=== PATIENT | male | born 1975 | race Caucasian/White ===

== ENCOUNTER 2017-08-03 20:40 | Emergency (ER) | payer MEDICARE, OTHER ==
--- NOTE | 2017-08-03 21:49 | EDM.PDOC ---
ED HPI GENERAL MEDICAL PROBLEM - General Chief Complaint: Upper Extremity Injury/Pain Stated Complaint: FALL/PAIN RT SHOULDER Time Seen by Provider: 08/03/17 21:10 Source of Information: Reports: Patient History Limitations: Reports: No Limitations - History of Present Illness INITIAL COMMENTS - FREE TEXT/NARRATIVE: HISTORY AND PHYSICAL: History of present illness: [Patient comes to the emergency room complaining of left shoulder pain. States that on Tuesday, August 01 he slipped on some ice with his left shoulder banging into the trunk of a vehicle. Since then he's had pain to his left shoulder with any movement. He has not had any numbness or tingling in his arm hand or fingers that he is complaining of pain with any movement of his shoulder. He reports prosthetic right shoulder 1-1/2 years and bilateral knee replacements. He is currently on disability for a multitude of chronic medical conditions. He has no other complaints or concerns.] Review of systems: As per history of present illness and below otherwise all systems reviewed and negative. Past medical history: As per history of present illness and as reviewed below otherwise noncontributory. Surgical history: As per history of present illness and as reviewed below otherwise noncontributory. Social history: No reported history of drug or alcohol abuse. Family history: As per history of present illness and as reviewed below otherwise noncontributory. Physical exam: HEENT: Atraumatic, normocephalic. Lungs: Clear to auscultation, breath sounds equal bilaterally. Heart: S1S2, rate and rhythm. No murmur gallop click or rub. Extremities: Atraumatic in appearance. No bruising ecchymosis or swelling is appreciated to anterior posterior shoulder. He is tender with palpation over left shoulder musculature and AC joint area. 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 Skin is warm dry pink and intact. Neurovascular unremarkable. Neuro: Awake, alert, oriented. Motor and sensory unremarkable throughout. Exam nonfocal. Diagnostics: [Left shoulder x-ray] Therapeutics: [Toradol 60 mg IM] Impression: [L shoulder pain] Plan: [Patient is notified that his shoulder x-ray shows no abnormalities. He is given 60 mg of Toradol IM in the ER. Advised to alternate Tylenol with ibuprofen as needed for discomfort. Heat or ice as needed for discomfort. Follow -up with PCP. Patient verbalized understanding of today's discussion.] Definitive disposition and diagnosis as appropriate pending reevaluation and review of above. left shoulder Pain Score (Numeric/FACES): 7 - Related Data Allergies Allergy/AdvReac Type Severity Reaction Status Date / Time No Known Allergies Allergy Verified 08/03/17 20:57 Home Meds: Home Meds . [No Known Home Meds] 08/03/17 [History] Past Medical History HEENT History: Reports: None Cardiovascular History: Reports: None Respiratory History: Reports: None Gastrointestinal History: Reports: None Genitourinary History: Reports: None Musculoskeletal History: Reports: None Neurological History: Reports: None Psychiatric History: Reports: Depression Endocrine/Metabolic History: Reports: None Hematologic History: Reports: None Immunologic History: Reports: None Oncologic (Cancer) History: Reports: None Dermatologic History: Reports: None - Infectious Disease History Infectious Disease History: Reports: None - Past Surgical History Head Surgeries/Procedures: Reports: None Musculoskeletal Surgical History: Reports: Arthroscopic Procedure Social & Family History - Family History Family Medical History: Noncontributory - Tobacco Use Smoking Status *Q: Never Smoker - Caffeine Use Caffeine Use: Reports: None - Recreational Drug Use Recreational Drug Use: No Review of Systems - Review of Systems Review Of Systems: ROS reveals no pertinent complaints other than HPI. ED EXAM, GENERAL - Physical Exam Exam: See Below Course - Vital Signs Last Recorded V/S: Last Vital Signs Temp 97.5 F 08/03/17 20:50 Pulse 90 08/03/17 20:50 Resp 18 08/03/17 20:50 BP 142/89 H 08/03/17 20:50 Pulse Ox 98 08/03/17 20:50 - Orders/Labs/Meds Orders: Active Orders 24 hr Category Date Time Status Shoulder Comp Lt [CR] Stat Exams 08/03/17 21:18 Taken Departure - Departure Time of Disposition: 22:00 Disposition: Home, Self-Care 01 Condition: Good Clinical Impression: Left shoulder pain - Discharge Information Referrals: PCP,None [Primary Care Provider] - Additional Instructions: The following information is given to patients seen in the emergency department who are being discharged to home. This information is to outline your options for follow-up care. We provide all patients seen in our emergency department with a follow-up referral. The need for follow-up, as well as the timing and circumstances, are variable depending upon the specifics of your emergency department visit. If you don't have a primary care physician on staff, we will provide you with a referral. We always advise you to contact your personal physician following an emergency department visit to inform them of the circumstance of the visit and for follow-up with them and/or the need for any referrals to a consulting specialist. The emergency department will also refer you to a specialist when appropriate. This referral assures that you have the opportunity for follow-up care with a specialist. All of these measure are taken in an effort to provide you with optimal care, which includes your follow-up. Under all circumstances we always encourage you to contact your private physician who remains a resource for coordinating your care. When calling for follow-up care, please make the office aware that this follow-up is from your recent emergency room visit. If for any reason you are refused follow-up, please contact the [facility] emergency department at and asked to speak to the emergency department charge nurse. [facility] [address] [place] [id number] Follow-up with your primary care provider at the clinic listed above in 48-72 hours. You may require an MRI. Tylenol alternating with ibuprofen as needed for discomfort. Maximum daily dose of Tylenol (acetaminophen) is 4 thousand milligrams in 24 hours. Maximum daily dose of ibuprofen is 2400 mg within a 24-hour period. Return to ER as needed as discussed. - My Orders Last 24 Hours: My Active Orders 08/03/17 21:18 Shoulder Comp Lt [CR] Stat - Assessment/Plan Last 24 Hours: My Active Orders 08/03/17 21:18 Shoulder Comp Lt [CR] Stat
[2017-08-03] MEDS ORDERED: Ketorolac 60 MG/2 ML SDV IM ONE (21:51)
--- NOTE | 2017-08-04 10:14 | CR ---
EXAM DATE: 08/03/17 PATIENT'S AGE: 41 Patient: MARY EVERETT Facility: [place], [place] Site . Site : [id number] Study: XRay Shoulder Left [id number]/[id number] 9:41:45 PM Ordering Physician: Doctor Diez Final Report: Indication: Trauma and pain Technique: Left shoulder 3 views. Comparison: None Findings: Bones: Alignment is normal. No fractures or bone lesions. Joint spaces: Unremarkable. Soft tissues: Unremarkable. Impression: No sign of acute injury. Dictated by Tarik Velarde MD @ 08/03/2017 9:45:19 PM Dictated by: Tarik Velarde MD @ 08/03/2017 21:45:25 (Electronic Signature) Report Signed by Proxy. [facility]
== END 2017-08-03 22:18 | disposition home or self-care (01) ==
LOC: MW.ED 20:40
DX: M25.512 Pain in left shoulder (principal)
CPT/HCPCS: 73030; 96372; 99283; J1885

== ENCOUNTER 2017-09-06 17:46 | Observation (INO) | payer MEDICARE, OTHER ==
[2017-09-06] MEDS ORDERED: Sodium Chloride 0.9% 2.5 ML Syringe FLUSH PRN (18:01)
[2017-09-06] MEDS ORDERED: Sodium Chloride 0.9% 10 ML Syringe FLUSH PRN (18:01)
--- NOTE | 2017-09-06 18:17 | EDM.PDOC ---
ED HPI GENERAL MEDICAL PROBLEM - General Chief Complaint: Diabetic Complaint Stated Complaint: HBP/SHAKING Time Seen by Provider: 09/06/17 18:00 - History of Present Illness INITIAL COMMENTS - FREE TEXT/NARRATIVE: HISTORY AND PHYSICAL: History of present illness: Patient's 41-year-old white male history of soj-[id number] diabetes who recently stopped medications he did this due to reported side effects that he was made aware of through nonmedical sources. He also noticed his blood pressure elevated and was concern about possible oxygen and a myriad of other nonspecific complaints. He denies chest pain on arrival pulse oximetry is 95 percent. Patient has had a colon resection for diverticular disease patient also is concerned about epigastric abdominal pain he states he has had a history of pancreatitis in the past. Review of systems: As per history of present illness and below otherwise all systems reviewed and negative. Past medical history: As per history of present illness and as reviewed below otherwise noncontributory. Surgical history: As per history of present illness and as reviewed below otherwise noncontributory. Social history: No reported history of drug or alcohol abuse. Family history: As per history of present illness and as reviewed below otherwise noncontributory. Physical exam: HEENT: Atraumatic, normocephalic, pupils reactive, negative for conjunctival pallor or scleral icterus, mucous membranes moist, throat clear, neck supple, nontender, trachea midline. Lungs: Clear to auscultation, breath sounds equal bilaterally, chest nontender. Heart: S1S2, regular, negative for clicks, rubs, or JVD. Abdomen: Soft, nondistended, mild epigastric tenderness to deep palpation. Negative for masses or hepatosplenomegaly. Negative for costovertebral tenderness. Pelvis: Stable nontender. Genitourinary: Deferred. Rectal: Deferred. Extremities: Atraumatic, negative for cords or calf pain. Neurovascular unremarkable. Neuro: Awake, alert, oriented. Cranial nerves II through XII unremarkable. Cerebellum unremarkable. Motor and sensory unremarkable throughout. Exam nonfocal. Diagnostics: CBC CMP troponin PT/INR EKG acute abdominal series with chest x-ray Therapeutics: None Impression: 1 medical screening exam #2 medical noncompliance #3 history of non-insulin diabetes #4 abdominal pain Definitive disposition and diagnosis as appropriate pending reevaluation and review of above. - Related Data Allergies Allergy/AdvReac Type Severity Reaction Status Date / Time No Known Allergies Allergy Verified 09/06/17 18:05 Home Meds: Home Meds . [No Known Home Meds] 08/03/17 [History] Past Medical History HEENT History: Reports: None Cardiovascular History: Reports: None Respiratory History: Reports: None Gastrointestinal History: Reports: None Genitourinary History: Reports: None Musculoskeletal History: Reports: None Neurological History: Reports: None Psychiatric History: Reports: Depression Endocrine/Metabolic History: Reports: None Hematologic History: Reports: None Immunologic History: Reports: None Oncologic (Cancer) History: Reports: None Dermatologic History: Reports: None - Infectious Disease History Infectious Disease History: Reports: None - Past Surgical History Head Surgeries/Procedures: Reports: None Musculoskeletal Surgical History: Reports: Arthroscopic Procedure Social & Family History - Family History Family Medical History: Noncontributory - Tobacco Use Smoking Status *Q: Never Smoker - Caffeine Use Caffeine Use: Reports: None - Recreational Drug Use Recreational Drug Use: No ED ROS GENERAL - Review of Systems Review Of Systems: ROS reveals no pertinent complaints other than HPI. ED EXAM GENERAL NO PERIP PULSE - Physical Exam Exam: See Below (See dictation) Course - Vital Signs Last Recorded V/S: Last Vital Signs Temp 36.3 C 09/06/17 19:09 Pulse 89 09/06/17 19:09 Resp 18 09/06/17 19:09 BP 136/92 H 09/06/17 19:09 Pulse Ox 96 09/06/17 19:09 - Orders/Labs/Meds Orders: Active Orders 24 hr Category Date Time Status Cardiac Monitoring [RC] . DIRECTED Care 09/06/17 18:00 Active EKG Documentation Completion [RC] STAT Care 09/06/17 18:00 Active Pulse Oximetry [RC] ASDIRECTED Care 09/06/17 18:01 Active Abdomen Series w Chest 1V [CR] Stat Exams 09/06/17 18:01 Taken LIPID PANEL [CHEM] Stat Lab 09/06/17 19:34 Ordered Sodium Chloride 0.9% [Normal Saline] 1,000 ml Med 09/06/17 19:35 Active IV .Bolus Sodium Chloride 0.9% [Saline Flush] Med 09/06/17 18:01 Active 10 ml FLUSH ASDIRECTED PRN Sodium Chloride 0.9% [Saline Flush] Med 09/06/17 18:01 Active 2.5 ml FLUSH ASDIRECTED PRN Saline Lock Insert [OM.PC] Stat Oth 09/06/17 18:00 Ordered Medication Orders Sodium Chloride (Normal Saline) 1,000 mls @ 999 mls/hr IV .Bolus ONE Stop: 09/06/17 20:35 Sodium Chloride (Saline Flush) 10 ml FLUSH ASDIRECTED PRN PRN Reason: Keep Vein Open Sodium Chloride (Saline Flush) 2.5 ml FLUSH ASDIRECTED PRN PRN Reason: Keep Vein Open Labs: Laboratory Tests 09/06/17 09/06/17 09/06/17 Range/Units 18:10 18:10 18:10 WBC 7.26 (4.0-11.0) K/uL RBC 5.20 (4.50-5.90) M/uL Hgb 16.6 (13.0-17.0) g/dL Hct 45.6 (38.0-50.0) % MCV 87.7 (80.0-98.0) fL MCH 31.9 (27.0-32.0) pg MCHC 36.4 (31.0-37.0) g/dL RDW Std Deviation 41.0 (28.0-62.0) fl RDW Coeff of Torsten 13 (11.0-15.0) % Plt Count 193 (150-400) K/uL MPV 10.40 (7.40-12.00) fL Neut % (Auto) 49.1 (48.0-80.0) % Lymph % (Auto) 36.8 (16.0-40.0) % [place] % (Auto) 10.7 (0.0-15.0) % Eos % (Auto) 2.3 (0.0-7.0) % Baso % (Auto) 1.1 (0.0-1.5) % Neut # (Auto) 3.6 (1.4-5.7) K/uL Lymph # (Auto) 2.7 H (0.6-2.4) K/uL [place] # (Auto) 0.8 (0.0-0.8) K/uL Eos # (Auto) 0.2 (0.0-0.7) K/uL Baso # (Auto) 0.1 (0.0-0.1) K/uL Nucleated RBC % 0.0 /100WBC Nucleated RBCs # 0 K/uL INR 1.08 Sodium 136 (136-148) mmol/L Potassium 3.8 (3.5-5.1) mmol/L Chloride 100 (98-107) mmol/L Carbon Dioxide 26.2 (21.0-32.0) mmol/L BUN 12 (7.0-18.0) mg/dL Creatinine 1.1 (0.8-1.3) mg/dL Est Cr Clr Drug Dosing 95.04 mL/min Estimated GFR (MDRD) > 60.0 ml/min Glucose 284 H (74-106) mg/dL Calcium 9.1 (8.5-10.1) mg/dL Total Bilirubin 0.4 (0.2-1.0) mg/dL AST 27 (15-37) IU/L ALT 33 (14-63) IU/L Alkaline Phosphatase 151 H (46-116) U/L Troponin I < 0.050 (0.000-0.056) ng/mL Total Protein 8.2 (6.4-8.2) g/dL Albumin 3.7 (3.4-5.0) g/dL Globulin 4.5 H (2.0-3.5) g/dL Albumin/Globulin Ratio 0.8 L (1.3-2.8) Lipase 1248 H (73-393) U/L Meds: Medications Generic Name Dose Route Start Last Admin Trade Name Freq PRN Reason Stop Dose Admin Sodium Chloride 1,000 mls @ 999 mls/hr 09/06/17 19:35 Normal Saline IV 09/06/17 20:35 .Bolus ONE Sodium Chloride 10 ml 09/06/17 18:01 Saline Flush FLUSH ASDIRECTED PRN Keep Vein Open Sodium Chloride 2.5 ml 09/06/17 18:01 Saline Flush FLUSH ASDIRECTED PRN Keep Vein Open Departure - Departure Time of Disposition: 18:17 Disposition: Refer to Observation Condition: Good Clinical Impression: Pancreatitis, Medical non-compliance, Non-insulin dependent type 2 diabetes mellitus - Discharge Information Referrals: PCP,None [Primary Care Provider] - Forms: ED Department Discharge - My Orders Last 24 Hours: My Active Orders 09/06/17 18:00 Cardiac Monitoring [RC] . DIRECTED EKG Documentation Completion [RC] STAT Saline Lock Insert [OM.PC] Stat 09/06/17 18:01 Pulse Oximetry [RC] ASDIRECTED Abdomen Series w Chest 1V [CR] Stat Sodium Chloride 0.9% [Saline Flush] 10 ml FLUSH ASDIRECTED PRN Sodium Chloride 0.9% [Saline Flush] 2.5 ml FLUSH ASDIRECTED PRN - Assessment/Plan Last 24 Hours: My Active Orders 09/06/17 18:00 Cardiac Monitoring [RC] . DIRECTED EKG Documentation Completion [RC] STAT Saline Lock Insert [OM.PC] Stat 09/06/17 18:01 Pulse Oximetry [RC] ASDIRECTED Abdomen Series w Chest 1V [CR] Stat Sodium Chloride 0.9% [Saline Flush] 10 ml FLUSH ASDIRECTED PRN Sodium Chloride 0.9% [Saline Flush] 2.5 ml FLUSH ASDIRECTED PRN
[2017-09-06 18:47] LABS: CHLORIDE,CL 100 mmol/L (98-107); SODIUM,NA 136 mmol/L (136-148)
[2017-09-06] MEDS ORDERED: Sodium Chloride 0.9% 1,000 ML IV ONE ×3 (19:35→19:39)
--- NOTE | 2017-09-06 20:29 | PCM.HP ---
H&P History of Present Illness - General Admit Problem/Dx: Admission Diagnosis/Problem Admission Diagnosis/Problem Pancreatitis - History of Present Illness Initial Comments - Free Text/Narative: 41 yo male with pmh of type 2 DM who presents to the ED with abdominal pain. Patient reports abdominal pain for past year. His abdominal pain is periumbilical and radiates to the back. The pain has gradually gotten worse and today it was unbearable. He has been unable to eat anything all day. He denies any fever or blood in stool His diabetes is poorly controlled on metformin and he reports blood glucose in the 300s and 400s. He reports a history of elevated triglycerides. He reports he has a history of gallstones. He stated he wanted his gallbladder out at one point but nobody was willing to remove it. He admits to heavy alcohol use in the past. He last binged drink six months ago. His last drink was one month ago. Bilateral Lower Abdominal Pain Score (Numeric/FACES): 8 - Related Data Allergies/Adverse Reactions: Allergies Allergy/AdvReac Type Severity Reaction Status Date / Time No Known Allergies Allergy Verified 09/06/17 18:05 Home Medications: Home Meds Insulin Aspart [NovoLOG] See Protocol SUBCUT TID #3 pen 09/08/17 [Rx] Insulin Glarg,Human.Rec.Analog [Lantus] 20 unit SUBCUT DAILY #3 bottle 09/08/17 [Rx] Rosuvastatin [Crestor] 10 mg PO DAILY #30 tab 09/08/17 [Rx] Past Medical History HEENT History: Reports: None Cardiovascular History: Reports: None Respiratory History: Reports: None Gastrointestinal History: Reports: None Genitourinary History: Reports: None Musculoskeletal History: Reports: None Neurological History: Reports: None Psychiatric History: Reports: Depression Endocrine/Metabolic History: Reports: None Hematologic History: Reports: None Immunologic History: Reports: None Oncologic (Cancer) History: Reports: None Dermatologic History: Reports: None - Infectious Disease History Infectious Disease History: Reports: None - Past Surgical History Head Surgeries/Procedures: Reports: None Musculoskeletal Surgical History: Reports: Arthroscopic Procedure Social & Family History - Family History Family Medical History: Noncontributory - Tobacco Use Smoking Status *Q: Never Smoker - Caffeine Use Caffeine Use: Reports: None - Recreational Drug Use Recreational Drug Use: No H&P Review of Systems - Review of Systems: Review Of Systems: ROS reveals no pertinent complaints other than HPI. Exam - Exam Exam: See Below - Vital Signs Vital Signs: Last Vital Signs Temp 36.3 C 09/06/17 19:09 Pulse 89 09/06/17 19:09 Resp 18 09/06/17 19:09 BP 136/92 H 09/06/17 19:09 Pulse Ox 96 09/06/17 19:09 Weight: 124.1 kg - Exam General: Alert, Oriented Lungs: Clear to Auscultation, Normal Respiratory Effort GI/Abdominal Exam: Normal Bowel Sounds, Soft, No Distention, Tender (to epigastric area) - Patient Data Lab Results Last 24 hrs: Laboratory Results - last 24 hr 09/06/17 09/06/17 09/06/17 Range/Units 18:10 18:10 18:10 WBC 7.26 (4.0-11.0) K/uL RBC 5.20 (4.50-5.90) M/uL Hgb 16.6 (13.0-17.0) g/dL Hct 45.6 (38.0-50.0) % MCV 87.7 (80.0-98.0) fL MCH 31.9 (27.0-32.0) pg MCHC 36.4 (31.0-37.0) g/dL RDW Std Deviation 41.0 (28.0-62.0) fl RDW Coeff of Torsten 13 (11.0-15.0) % Plt Count 193 (150-400) K/uL MPV 10.40 (7.40-12.00) fL Neut % (Auto) 49.1 (48.0-80.0) % Lymph % (Auto) 36.8 (16.0-40.0) % [place] % (Auto) 10.7 (0.0-15.0) % Eos % (Auto) 2.3 (0.0-7.0) % Baso % (Auto) 1.1 (0.0-1.5) % Neut # (Auto) 3.6 (1.4-5.7) K/uL Lymph # (Auto) 2.7 H (0.6-2.4) K/uL [place] # (Auto) 0.8 (0.0-0.8) K/uL Eos # (Auto) 0.2 (0.0-0.7) K/uL Baso # (Auto) 0.1 (0.0-0.1) K/uL Nucleated RBC % 0.0 /100WBC Nucleated RBCs # 0 K/uL INR 1.08 Sodium 136 (136-148) mmol/L Potassium 3.8 (3.5-5.1) mmol/L Chloride 100 (98-107) mmol/L Carbon Dioxide 26.2 (21.0-32.0) mmol/L BUN 12 (7.0-18.0) mg/dL Creatinine 1.1 (0.8-1.3) mg/dL Est Cr Clr Drug Dosing 95.04 mL/min Estimated GFR (MDRD) > 60.0 ml/min Glucose 284 H (74-106) mg/dL Calcium 9.1 (8.5-10.1) mg/dL Total Bilirubin 0.4 (0.2-1.0) mg/dL AST 27 (15-37) IU/L ALT 33 (14-63) IU/L Alkaline Phosphatase 151 H (46-116) U/L Troponin I < 0.050 (0.000-0.056) ng/mL Total Protein 8.2 (6.4-8.2) g/dL Albumin 3.7 (3.4-5.0) g/dL Globulin 4.5 H (2.0-3.5) g/dL Albumin/Globulin Ratio 0.8 L (1.3-2.8) Triglycerides (0-200) mg/dL Cholesterol (50-200) mg/dL VLDL Cholesterol (5-55) mg/dL HDL Cholesterol (40-60) mg/dL Cholesterol/HDL Ratio (3.3-6.0) Lipase 1248 H (73-393) U/L 09/06/17 Range/Units 18:10 WBC (4.0-11.0) K/uL RBC (4.50-5.90) M/uL Hgb (13.0-17.0) g/dL Hct (38.0-50.0) % MCV (80.0-98.0) fL MCH (27.0-32.0) pg MCHC (31.0-37.0) g/dL RDW Std Deviation (28.0-62.0) fl RDW Coeff of Torsten (11.0-15.0) % Plt Count (150-400) K/uL MPV (7.40-12.00) fL Neut % (Auto) (48.0-80.0) % Lymph % (Auto) (16.0-40.0) % [place] % (Auto) (0.0-15.0) % Eos % (Auto) (0.0-7.0) % Baso % (Auto) (0.0-1.5) % Neut # (Auto) (1.4-5.7) K/uL Lymph # (Auto) (0.6-2.4) K/uL [place] # (Auto) (0.0-0.8) K/uL Eos # (Auto) (0.0-0.7) K/uL Baso # (Auto) (0.0-0.1) K/uL Nucleated RBC % /100WBC Nucleated RBCs # K/uL INR Sodium (136-148) mmol/L Potassium (3.5-5.1) mmol/L Chloride (98-107) mmol/L Carbon Dioxide (21.0-32.0) mmol/L BUN (7.0-18.0) mg/dL Creatinine (0.8-1.3) mg/dL Est Cr Clr Drug Dosing mL/min Estimated GFR (MDRD) ml/min Glucose (74-106) mg/dL Calcium (8.5-10.1) mg/dL Total Bilirubin (0.2-1.0) mg/dL AST (15-37) IU/L ALT (14-63) IU/L Alkaline Phosphatase (46-116) U/L Troponin I (0.000-0.056) ng/mL Total Protein (6.4-8.2) g/dL Albumin (3.4-5.0) g/dL Globulin (2.0-3.5) g/dL Albumin/Globulin Ratio (1.3-2.8) Triglycerides 520 H (0-200) mg/dL Cholesterol 233 H (50-200) mg/dL VLDL Cholesterol 104 H (5-55) mg/dL HDL Cholesterol 33 L (40-60) mg/dL Cholesterol/HDL Ratio 7.1 H (3.3-6.0) Lipase (73-393) U/L Result Diagrams: 09/08/17 06:15 09/08/17 06:15 Problem List Initiated/Reviewed/Updated: Yes Orders Last 24hrs: Active Orders 24 hr Category Date Time Status Patient Status [ADT] Stat ADT 09/06/17 19:37 Active Accu Check [Blood Glucose Check, Bedside] [RC] Q6HR Care 09/06/17 20:18 Ordered Cardiac Monitoring [RC] . DIRECTED Care 09/06/17 18:00 Active EKG Documentation Completion [RC] STAT Care 09/06/17 18:00 Active Oxygen Therapy [RC] PRN Care 09/06/17 20:16 Ordered Pulse Oximetry [RC] ASDIRECTED Care 09/06/17 18:01 Active Up ad Mildred [RC] ASDIRECTED Care 09/06/17 20:16 Ordered VTE/DVT Education [RC] PER UNIT ROUTINE Care 09/06/17 20:16 Ordered Vital Signs [RC] Q4H Care 09/06/17 20:16 Ordered Nothing per Oral Now Diet [DIET] Diet 09/06/17 Breakfast Ordered Abdomen Comp [US] Routine Exams 09/06/17 20:23 Ordered Abdomen Series w Chest 1V [CR] Stat Exams 09/06/17 18:01 Taken CBC WITH AUTO DIFF [HEME] AM Lab 09/07/17 05:11 Ordered COMPREHENSIVE METABOLIC PN,CMP [CHEM] AM Lab 09/07/17 05:11 Ordered GLYCOSYLATED HEMOGLOBIN,HGBA1C [CHEM] AM Lab 09/07/17 05:11 Ordered Enoxaparin [Lovenox] Med 09/06/17 20:30 Ordered 40 mg SUBCUT Q24H Insulin Aspart [NovoLOG] Med 09/06/17 20:30 Ordered See Protocol SUBCUT Q6H Morphine Med 09/06/17 20:16 Ordered 2 mg IVPUSH Q2H PRN Pantoprazole [ProTONIX IV] Med 09/06/17 20:30 Ordered 40 mg IVPUSH Q24H Sodium Chloride 0.9% [Normal Saline] 1,000 ml Med 09/06/17 19:35 Active IV .Bolus Sodium Chloride 0.9% [Normal Saline] 1,000 ml Med 09/06/17 19:35 Active IV .Bolus Sodium Chloride 0.9% [Normal Saline] 1,000 ml Med 09/06/17 20:30 Ordered IV ASDIRECTED Sodium Chloride 0.9% [Normal Saline] 1,000 ml Med 09/06/17 19:39 Active IV STAT Sodium Chloride 0.9% [Saline Flush] Med 09/06/17 18:01 Active 10 ml FLUSH ASDIRECTED PRN Sodium Chloride 0.9% [Saline Flush] Med 09/06/17 18:01 Active 2.5 ml FLUSH ASDIRECTED PRN Saline Lock Insert [OM.PC] Stat Ot 09/06/17 18:00 Ordered Sequential Compression Device [OM.PC] Per Unit Routine Oth 09/06/17 20:16 Ordered Resuscitation Status Routine Resus Stat 09/06/17 20:16 Ordered Medication Orders Enoxaparin Sodium (Lovenox) 40 mg SUBCUT Q24H BAYRON Sodium Chloride (Normal Saline) 1,000 mls @ 999 mls/hr IV .Bolus ONE Stop: 09/06/17 20:35 Last Admin: 09/06/17 19:45 Dose: 999 mls/hr Sodium Chloride (Normal Saline) 1,000 mls @ 999 mls/hr IV .Bolus ONE Stop: 09/06/17 20:35 Sodium Chloride (Normal Saline) 1,000 mls @ 999 mls/hr IV STAT ONE Stop: 09/06/17 20:39 Sodium Chloride (Normal Saline) 1,000 mls @ 200 mls/hr IV ASDIRECTED BAYRON Insulin Aspart (Novolog) 0 unit SUBCUT Q6H BAYRON; Protocol Morphine Sulfate (Morphine) 2 mg IVPUSH Q2H PRN PRN Reason: Pain (severe 7-10) Stop: 09/07/17 20:17 Pantoprazole Sodium (Protonix Iv) 40 mg IVPUSH Q24H [place] Sodium Chloride (Saline Flush) 10 ml FLUSH ASDIRECTED PRN PRN Reason: Keep Vein Open Sodium Chloride (Saline Flush) 2.5 ml FLUSH ASDIRECTED PRN PRN Reason: Keep Vein Open Assessment/Plan Comment:: 41 yo male admitted with pancreatitis. Etiology is likely mutlifactorial. We will check abdominal ultrasound. We will treat with IV fluids, bowel rest and pain medications. Will place on sliding scale insulin.
[2017-09-06] MEDS: Insulin Aspart 100 Units/ML 3 ML Pen SUBCUT SCH (21:38)
[2017-09-06] MEDS: Pantoprazole 40 MG Vial IVPUSH SCH (21:40)
[2017-09-06] MEDS: Enoxaparin 40 MG/0.4 ML Syringe SUBCUT SCH (21:43)
[2017-09-06] MEDS: Morphine 4 MG/ML Syringe IVPUSH PRN (22:12)
[2017-09-06] MEDS: Sodium Chloride 0.9% 1,000 ML IV SCH (23:45)
[2017-09-07] MEDS: Morphine 4 MG/ML Syringe IVPUSH PRN ×6 (00:17→23:44)
[2017-09-07] MEDS: Insulin Aspart 100 Units/ML 3 ML Pen SUBCUT SCH ×4 (03:30→18:20)
[2017-09-07] MEDS: Sodium Chloride 0.9% 1,000 ML IV SCH ×4 (04:25→19:48)
[2017-09-07 06:39] LABS: CHLORIDE,CL 105 mmol/L (98-107); SODIUM,NA 139 mmol/L (136-148)
[2017-09-07] MEDS ORDERED: Ondansetron 4 MG/2 ML SDV IVPUSH ONE (09:05)
--- NOTE | 2017-09-07 10:46 | CR ---
EXAM DATE: 09/06/17 PATIENT'S AGE: 41 Patient: MARY EVERETT Facility: [place], [place] Site . Site : 1975 Study: XRay Chest/Abd/Pelvis acute series [id number]/10/2018 7:02:06 PM Ordering Physician: Hali Shukla Final Report: INDICATION: Abdominal pain, nausea, vomiting, diarrhea, dizziness TECHNIQUE: Chest 1 view. COMPARISON: 09/22/2009 FINDINGS: Cardiovascular and mediastinum: Heart size and vasculature are normal in caliber and appearance. Mediastinum is within normal limits. Lungs and pleural space: Lungs are clear. No sign of infiltrate or mass. No sign of pleural effusion. No pneumothorax. Bones and soft tissues: No significant findings. Abdomen: There is a nonobstructive bowel gas pattern. Colonic fecal retention. No evidence for bowel obstruction. No suspicious calcifications. Surgical clips project over the left side of the sacrum. IMPRESSION: Unremarkable chest. Colonic fecal retention. Dictated by Sheng Brooks MD @ 09/06/2017 7:19:05 PM Dictated by: Sheng Brooks MD @ 09/06/2017 19:19:13 (Electronic Signature) Report Signed by Proxy. [facility]
--- NOTE | 2017-09-07 11:32 | US ---
EXAMINATION: Abdominal ultrasound HISTORY: Pain COMPARISON: None TECHNIQUE: Grayscale and color Doppler imaging obtained. FINDINGS: The visualized pancreas is normal. The IVC and aorta appear normal. The liver is mildly to moderately increased in generalized echotexture without a focal hepatic mass. Gallbladder wall thickn ess is normal. No pericholecystic fluid or shadowing gallstones. The common bile duct measures 4 mm. Right kidney measures at least 12.9 cm and the left kidney measures at least 11 cm [id number] witho ut evidence of hydronephrosis. Peripelvic cysts noted within the left kidney. The spleen is normal. N o abdominal ascites. IMPRESSION: 1. Fatty infiltration of the liver. 2. Otherwise grossly unremarkable abdominal ultrasound.
--- NOTE | 2017-09-07 11:49 | PCM.PN ---
- General Info Date of Service: 09/07/17 Admission Dx/Problem (Free Text): Admission Diagnosis/Problem Admission Diagnosis/Problem Pancreatitis Subjective Update: Patient continues to complain of diffuse abdominal pain. He doesn't have much of an appetite and endorses nausea but no vomiting. He denies any other acute concerns at this time. Functional Status: Reports: Pain Controlled, Ambulating, Urinating - Review of Systems General: Reports: No Symptoms HEENT: Reports: No Symptoms Pulmonary: Reports: No Symptoms Cardiovascular: Reports: No Symptoms Gastrointestinal: Reports: Abdominal Pain, Nausea. Denies: Vomiting Genitourinary: Reports: No Symptoms Musculoskeletal: Reports: No Symptoms Skin: Reports: No Symptoms Neurological: Reports: No Symptoms Psychiatric: Reports: No Symptoms - Patient Data Vitals - Most Recent: Last Vital Signs Temp 99.1 F 09/07/17 08:00 Pulse 88 09/07/17 08:00 Resp 17 09/07/17 08:00 BP 134/95 H 09/07/17 08:00 Pulse Ox 92 L 09/07/17 08:00 Weight - Most Recent: 268 lb 11.2 oz I&O - Last 24 Hours: Intake & Output 09/06/17 09/07/17 09/07/17 22:59 06:59 14:59 Intake Total 1999 1933 Output Total 700 Balance 1999 1233 Lab Results Last 24 Hours: Laboratory Results - last 24 hr 09/06/17 09/06/17 09/06/17 Range/Units 18:10 18:10 18:10 WBC 7.26 (4.0-11.0) K/uL RBC 5.20 (4.50-5.90) M/uL Hgb 16.6 (13.0-17.0) g/dL Hct 45.6 (38.0-50.0) % MCV 87.7 (80.0-98.0) fL MCH 31.9 (27.0-32.0) pg MCHC 36.4 (31.0-37.0) g/dL RDW Std Deviation 41.0 (28.0-62.0) fl RDW Coeff of Torsten 13 (11.0-15.0) % Plt Count 193 (150-400) K/uL MPV 10.40 (7.40-12.00) fL Neut % (Auto) 49.1 (48.0-80.0) % Lymph % (Auto) 36.8 (16.0-40.0) % [place] % (Auto) 10.7 (0.0-15.0) % Eos % (Auto) 2.3 (0.0-7.0) % Baso % (Auto) 1.1 (0.0-1.5) % Neut # (Auto) 3.6 (1.4-5.7) K/uL Lymph # (Auto) 2.7 H (0.6-2.4) K/uL [place] # (Auto) 0.8 (0.0-0.8) K/uL Eos # (Auto) 0.2 (0.0-0.7) K/uL Baso # (Auto) 0.1 (0.0-0.1) K/uL Nucleated RBC % 0.0 /100WBC Nucleated RBCs # 0 K/uL INR 1.08 Sodium 136 (136-148) mmol/L Potassium 3.8 (3.5-5.1) mmol/L Chloride 100 (98-107) mmol/L Carbon Dioxide 26.2 (21.0-32.0) mmol/L BUN 12 (7.0-18.0) mg/dL Creatinine 1.1 (0.8-1.3) mg/dL Est Cr Clr Drug Dosing 95.04 mL/min Estimated GFR (MDRD) > 60.0 ml/min Glucose 284 H (74-106) mg/dL Hemoglobin A1c (4.5-6.2) % Calcium 9.1 (8.5-10.1) mg/dL Total Bilirubin 0.4 (0.2-1.0) mg/dL AST 27 (15-37) IU/L ALT 33 (14-63) IU/L Alkaline Phosphatase 151 H (46-116) U/L Troponin I < 0.050 (0.000-0.056) ng/mL Total Protein 8.2 (6.4-8.2) g/dL Albumin 3.7 (3.4-5.0) g/dL Globulin 4.5 H (2.0-3.5) g/dL Albumin/Globulin Ratio 0.8 L (1.3-2.8) Triglycerides (0-200) mg/dL Cholesterol (50-200) mg/dL VLDL Cholesterol (5-55) mg/dL HDL Cholesterol (40-60) mg/dL Cholesterol/HDL Ratio (3.3-6.0) Lipase 1248 H (73-393) U/L 09/06/17 09/07/17 09/07/17 Range/Units 18:10 05:10 05:10 WBC 7.71 (4.0-11.0) K/uL RBC 4.63 (4.50-5.90) M/uL Hgb 14.6 (13.0-17.0) g/dL Hct 41.3 (38.0-50.0) % MCV 89.2 (80.0-98.0) fL MCH 31.5 (27.0-32.0) pg MCHC 35.4 (31.0-37.0) g/dL RDW Std Deviation 42.2 (28.0-62.0) fl RDW Coeff of Torsten 13 (11.0-15.0) % Plt Count 175 (150-400) K/uL MPV 10.50 (7.40-12.00) fL Neut % (Auto) 43.9 L (48.0-80.0) % Lymph % (Auto) 40.6 H (16.0-40.0) % [place] % (Auto) 11.5 (0.0-15.0) % Eos % (Auto) 3.1 (0.0-7.0) % Baso % (Auto) 0.9 (0.0-1.5) % Neut # (Auto) 3.4 (1.4-5.7) K/uL Lymph # (Auto) 3.1 H (0.6-2.4) K/uL [place] # (Auto) 0.9 H (0.0-0.8) K/uL Eos # (Auto) 0.2 (0.0-0.7) K/uL Baso # (Auto) 0.1 (0.0-0.1) K/uL Nucleated RBC % 0.0 /100WBC Nucleated RBCs # 0 K/uL INR Sodium (136-148) mmol/L Potassium (3.5-5.1) mmol/L Chloride (98-107) mmol/L Carbon Dioxide (21.0-32.0) mmol/L BUN (7.0-18.0) mg/dL Creatinine (0.8-1.3) mg/dL Est Cr Clr Drug Dosing mL/min Estimated GFR (MDRD) ml/min Glucose (74-106) mg/dL Hemoglobin A1c 9.5 H (4.5-6.2) % Calcium (8.5-10.1) mg/dL Total Bilirubin (0.2-1.0) mg/dL AST (15-37) IU/L ALT (14-63) IU/L Alkaline Phosphatase (46-116) U/L Troponin I (0.000-0.056) ng/mL Total Protein (6.4-8.2) g/dL Albumin (3.4-5.0) g/dL Globulin (2.0-3.5) g/dL Albumin/Globulin Ratio (1.3-2.8) Triglycerides 520 H (0-200) mg/dL Cholesterol 233 H (50-200) mg/dL VLDL Cholesterol 104 H (5-55) mg/dL HDL Cholesterol 33 L (40-60) mg/dL Cholesterol/HDL Ratio 7.1 H (3.3-6.0) Lipase (73-393) U/L 09/07/17 Range/Units 05:10 WBC (4.0-11.0) K/uL RBC (4.50-5.90) M/uL Hgb (13.0-17.0) g/dL Hct (38.0-50.0) % MCV (80.0-98.0) fL MCH (27.0-32.0) pg MCHC (31.0-37.0) g/dL RDW Std Deviation (28.0-62.0) fl RDW Coeff of Torsten (11.0-15.0) % Plt Count (150-400) K/uL MPV (7.40-12.00) fL Neut % (Auto) (48.0-80.0) % Lymph % (Auto) (16.0-40.0) % Casey % (Auto) (0.0-15.0) % Eos % (Auto) (0.0-7.0) % Baso % (Auto) (0.0-1.5) % Neut # (Auto) (1.4-5.7) K/uL Lymph # (Auto) (0.6-2.4) K/uL [place] # (Auto) (0.0-0.8) K/uL Eos # (Auto) (0.0-0.7) K/uL Baso # (Auto) (0.0-0.1) K/uL Nucleated RBC % /100WBC Nucleated RBCs # K/uL INR Sodium 139 (136-148) mmol/L Potassium 3.8 (3.5-5.1) mmol/L Chloride 105 (98-107) mmol/L Carbon Dioxide 24.0 (21.0-32.0) mmol/L BUN 12 (7.0-18.0) mg/dL Creatinine 1.0 (0.8-1.3) mg/dL Est Cr Clr Drug Dosing TNP mL/min Estimated GFR (MDRD) > 60.0 ml/min Glucose 222 H (74-106) mg/dL Hemoglobin A1c (4.5-6.2) % Calcium 7.7 L (8.5-10.1) mg/dL Total Bilirubin 0.3 (0.2-1.0) mg/dL AST 28 (15-37) IU/L ALT 31 (14-63) IU/L Alkaline Phosphatase 122 H (46-116) U/L Troponin I (0.000-0.056) ng/mL Total Protein 6.7 (6.4-8.2) g/dL Albumin 3.0 L (3.4-5.0) g/dL Globulin 3.7 H (2.0-3.5) g/dL Albumin/Globulin Ratio 0.8 L (1.3-2.8) Triglycerides (0-200) mg/dL Cholesterol (50-200) mg/dL VLDL Cholesterol (5-55) mg/dL HDL Cholesterol (40-60) mg/dL Cholesterol/HDL Ratio (3.3-6.0) Lipase (73-393) U/L Med Orders - Current: Current Medications Enoxaparin Sodium (Lovenox) 40 mg SUBCUT Q24H [facility] Last Admin: 09/06/17 21:43 Dose: 40 mg Sodium Chloride (Normal Saline) 1,000 mls @ 200 mls/hr IV ASDIRECTED [facility] Last Admin: 09/07/17 10:00 Dose: 200 mls/hr Insulin Aspart (Novolog) 0 unit SUBCUT Q6H [facility]; Protocol Last Admin: 09/07/17 11:42 Dose: 1 unit Morphine Sulfate (Morphine) 2 mg IVPUSH Q2H PRN PRN Reason: Pain (severe 7-10) Stop: 09/07/17 20:17 Last Admin: 09/07/17 10:14 Dose: 2 mg Pantoprazole Sodium (Protonix Iv) 40 mg IVPUSH Q24H [facility] Last Admin: 09/06/17 21:40 Dose: 40 mg Sodium Chloride (Saline Flush) 10 ml FLUSH ASDIRECTED PRN PRN Reason: Keep Vein Open Sodium Chloride (Saline Flush) 2.5 ml FLUSH ASDIRECTED PRN PRN Reason: Keep Vein Open Discontinued Medications Sodium Chloride (Normal Saline) 1,000 mls @ 999 mls/hr IV .Bolus ONE Stop: 09/06/17 20:35 Last Infusion: 09/06/17 21:31 Dose: Infused Sodium Chloride (Normal Saline) 1,000 mls @ 999 mls/hr IV .Bolus ONE Stop: 09/06/17 20:35 Last Infusion: 09/06/17 23:44 Dose: Infused Sodium Chloride (Normal Saline) 1,000 mls @ 999 mls/hr IV STAT ONE Stop: 09/06/17 20:39 Last Infusion: 09/06/17 22:44 Dose: Infused Insulin Aspart (Novolog) 0 unit SUBCUT Q6H [facility]; Protocol Last Admin: 09/07/17 03:30 Dose: 1 unit Ondansetron HCl (Zofran) 4 mg IVPUSH ONETIME ONE Stop: 09/07/17 09:06 Last Admin: 09/07/17 09:59 Dose: 4 mg - Exam Quality Assessment: DVT Prophylaxis General: Alert, Oriented, Cooperative, No Acute Distress Lungs: Clear to Auscultation, Normal Respiratory Effort Cardiovascular: Regular Rate, Regular Rhythm GI/Abdominal Exam: Normal Bowel Sounds, Soft, No Organomegaly, No Distention, No Abnormal Bruit, No Mass, Pelvis Stable, Tender (Diffuse) Extremities: Normal Inspection, Normal Range of Motion, Non-Tender, No Pedal Edema, Normal Capillary Refill Peripheral Pulses: 2+: Radial (L), Radial (R), Posterior Tibial (L), Posterior Tibial (R) Skin: Warm, Dry, Intact Neurological: No New Focal Deficit Psy/Mental Status: Alert, Normal Affect, Normal Mood - Problem List & Annotations (1) Dyslipidemia SNOMED Code(s): 087399113 Code(s): E78.5 - HYPERLIPIDEMIA, UNSPECIFIED Status: Acute Current Visit : Yes (2) Non-insulin dependent type 2 diabetes mellitus SNOMED Code(s): 95084829 Code(s): E11.9 - TYPE 2 DIABETES MELLITUS WITHOUT COMPLICATIONS Status: Acute Current Visit: Yes (3) Pancreatitis SNOMED Code(s): 25021544 Code(s): K85.90 - ACUTE PANCREATITIS WITHOUT NECROSIS OR INFECTION, UNSP Status: Acute Current Visit: Yes - Problem List Review Problem List Initiated/Reviewed/Updated: Yes - Plan Plan:: 41 yo male admitted with pancreatitis. #1. Pancreatitis: -Patient is nothing by mouth. Continue with IV fluids. IV morphine available for pain relief. Once patient is no longer nauseous, we will advance his diet as tolerated. -Right upper quadrant ultrasound shows fatty infiltrate of the liver but no acute findings. #2. Uncontrolled type 2 diabetes: -Patient was seen by the simulation educator and they will be starting him on insulin. Patient currently on NovoLog sliding scale. #3. Dyslipidemia: -Triglycerides 520 and total cholesterol was 233. Patient will be started on statin therapy at the time of discharge. Disposition: 2 to 4 days pending improvement.
[2017-09-07] MEDS: Pantoprazole 40 MG Vial IVPUSH SCH (20:50)
[2017-09-07] MEDS: Enoxaparin 40 MG/0.4 ML Syringe SUBCUT SCH (20:55)
[2017-09-08] MEDS: Insulin Aspart 100 Units/ML 3 ML Pen SUBCUT SCH ×3 (00:03→11:58)
[2017-09-08] MEDS: Sodium Chloride 0.9% 1,000 ML IV SCH ×2 (00:45→05:43)
[2017-09-08] MEDS: Morphine 4 MG/ML Syringe IVPUSH PRN (05:54)
[2017-09-08 07:09] LABS: CHLORIDE,CL 105 mmol/L (98-107); SODIUM,NA 137 mmol/L (136-148)
[2017-09-08] MEDS ORDERED: oxyCODONE 5 MG Tab PO PRN (08:51)
--- NOTE | 2017-09-08 11:11 | PCM.PN ---
- General Info Date of Service: 09/08/17 Admission Dx/Problem (Free Text): Admission Diagnosis/Problem Admission Diagnosis/Problem Pancreatitis Subjective Update: Abdominal pain has improved and the patient does feel like eating. He denies any nauseousness or vomiting. He is voiding appropriately. Functional Status: Reports: Pain Controlled, Ambulating, Urinating - Review of Systems General: Reports: No Symptoms HEENT: Reports: No Symptoms Pulmonary: Reports: No Symptoms Cardiovascular: Reports: No Symptoms Gastrointestinal: Reports: Abdominal Pain (Improving) Genitourinary: Reports: No Symptoms Musculoskeletal: Reports: No Symptoms Skin: Reports: No Symptoms Neurological: Reports: No Symptoms Psychiatric: Reports: No Symptoms - Patient Data Vitals - Most Recent: Last Vital Signs Temp 97.8 F 09/08/17 08:00 Pulse 83 09/08/17 08:00 Resp 14 09/08/17 08:00 BP 142/86 H 09/08/17 08:00 Pulse Ox 95 09/08/17 08:00 Weight - Most Recent: 268 lb 11.2 oz I&O - Last 24 Hours: Intake & Output 09/07/17 09/08/17 09/08/17 22:59 06:59 14:59 Intake Total 2177 2496 Output Total 550 1150 Balance 1627 1346 Lab Results Last 24 Hours: Laboratory Results - last 24 hr 09/08/17 09/08/17 Range/Units 06:15 06:15 WBC 5.96 (4.0-11.0) K/uL RBC 4.54 (4.50-5.90) M/uL Hgb 14.4 (13.0-17.0) g/dL Hct 40.5 (38.0-50.0) % MCV 89.2 (80.0-98.0) fL MCH 31.7 (27.0-32.0) pg MCHC 35.6 (31.0-37.0) g/dL RDW Std Deviation 42.3 (28.0-62.0) fl RDW Coeff of Torsten 13 (11.0-15.0) % Plt Count 158 (150-400) K/uL MPV 10.40 (7.40-12.00) fL Neut % (Auto) 49.0 (48.0-80.0) % Lymph % (Auto) 37.1 (16.0-40.0) % [place] % (Auto) 11.2 (0.0-15.0) % Eos % (Auto) 2.2 (0.0-7.0) % Baso % (Auto) 0.5 (0.0-1.5) % Neut # (Auto) 2.9 (1.4-5.7) K/uL Lymph # (Auto) 2.2 (0.6-2.4) K/uL [place] # (Auto) 0.7 (0.0-0.8) K/uL Eos # (Auto) 0.1 (0.0-0.7) K/uL Baso # (Auto) 0.0 (0.0-0.1) K/uL Nucleated RBC % 0.0 /100WBC Nucleated RBCs # 0 K/uL Sodium 137 (136-148) mmol/L Potassium 3.7 (3.5-5.1) mmol/L Chloride 105 (98-107) mmol/L Carbon Dioxide 24.9 (21.0-32.0) mmol/L BUN 10 (7.0-18.0) mg/dL Creatinine 0.9 (0.8-1.3) mg/dL Est Cr Clr Drug Dosing TNP Estimated GFR (MDRD) > 60.0 ml/min Glucose 203 H (74-106) mg/dL Calcium 8.1 L (8.5-10.1) mg/dL Total Bilirubin 0.4 (0.2-1.0) mg/dL AST 34 (15-37) IU/L ALT 32 (14-63) IU/L Alkaline Phosphatase 112 (46-116) U/L Total Protein 6.5 (6.4-8.2) g/dL Albumin 2.9 L (3.4-5.0) g/dL Globulin 3.6 H (2.0-3.5) g/dL Albumin/Globulin Ratio 0.8 L (1.3-2.8) Med Orders - Current: Current Medications Enoxaparin Sodium (Lovenox) 40 mg SUBCUT Q24H [facility] Last Admin: 09/07/17 20:55 Dose: 40 mg Insulin Aspart (Novolog) 0 unit SUBCUT Q6H [facility]; Protocol Last Admin: 09/08/17 05:52 Dose: 2 unit Oxycodone HCl (Oxycodone) 5 mg PO Q6H PRN PRN Reason: Pain Last Admin: 09/08/17 09:10 Dose: 5 mg Pantoprazole Sodium (Protonix Iv) 40 mg IVPUSH Q24H [facility] Last Admin: 09/07/17 20:50 Dose: 40 mg Sodium Chloride (Saline Flush) 10 ml FLUSH ASDIRECTED PRN PRN Reason: Keep Vein Open Sodium Chloride (Saline Flush) 2.5 ml FLUSH ASDIRECTED PRN PRN Reason: Keep Vein Open Discontinued Medications Sodium Chloride (Normal Saline) 1,000 mls @ 999 mls/hr IV .Bolus ONE Stop: 09/06/17 20:35 Last Infusion: 09/06/17 21:31 Dose: Infused Sodium Chloride (Normal Saline) 1,000 mls @ 999 mls/hr IV .[facility] ONE Stop: 09/06/17 20:35 Last Infusion: 09/06/17 23:44 Dose: Infused Sodium Chloride (Normal Saline) 1,000 mls @ 999 mls/hr IV STAT ONE Stop: 09/06/17 20:39 Last Infusion: 09/06/17 22:44 Dose: Infused Sodium Chloride (Normal Saline) 1,000 mls @ 125 mls/hr IV ASDIRECTED [facility] Last Admin: 09/08/17 05:43 Dose: 200 mls/hr Insulin Aspart (Novolog) 0 unit SUBCUT Q6H [facility]; Protocol Last Admin: 09/07/17 03:30 Dose: 1 unit Morphine Sulfate (Morphine) 2 mg IVPUSH Q2H PRN PRN Reason: Pain (severe 7-10) Stop: 09/07/17 20:17 Last Admin: 09/07/17 18:16 Dose: 2 mg Morphine Sulfate (Morphine) 2 mg IVPUSH Q2H PRN PRN Reason: Pain Last Admin: 09/08/17 05:54 Dose: 2 mg Ondansetron HCl (Zofran) 4 mg IVPUSH ONETIME ONE Stop: 09/07/17 09:06 Last Admin: 09/07/17 09:59 Dose: 4 mg - Exam Quality Assessment: DVT Prophylaxis General: Alert, Oriented, Cooperative, No Acute Distress Neck: Supple Lungs: Clear to Auscultation, Normal Respiratory Effort Cardiovascular: Regular Rate, Regular Rhythm GI/Abdominal Exam: Normal Bowel Sounds, Soft, Non-Tender, No Organomegaly, No Distention, No Abnormal Bruit, No Mass, Pelvis Stable Extremities: Normal Inspection, Normal Range of Motion, Non-Tender, No Pedal Edema, Normal Capillary Refill Peripheral Pulses: 2+: Radial (L), Radial (R), Posterior Tibial (L), Posterior Tibial (R) Skin: Warm, Dry, Intact Neurological: No New Focal Deficit Psy/Mental Status: Alert, Normal Affect, Normal Mood - Problem List & Annotations (1) Dyslipidemia SNOMED Code(s): 389705426 Code(s): E78.5 - HYPERLIPIDEMIA, UNSPECIFIED Status: Acute Current Visit : Yes (2) Non-insulin dependent type 2 diabetes mellitus SNOMED Code(s): 00223911 Code(s): E11.9 - TYPE 2 DIABETES MELLITUS WITHOUT COMPLICATIONS Status: Acute Current Visit: Yes (3) Pancreatitis SNOMED Code(s): 66933561 Code(s): K85.90 - ACUTE PANCREATITIS WITHOUT NECROSIS OR INFECTION, UNSP Status: Acute Current Visit: Yes - Problem List Review Problem List Initiated/Reviewed/Updated: Yes - My Orders Last 24 Hours: My Active Orders 09/08/17 08:51 oxyCODONE 5 mg PO Q6H PRN 09/09/17 05:11 CBC WITH AUTO DIFF [HEME] AM COMPREHENSIVE METABOLIC PN,CMP [CHEM] AM 09/10/17 05:11 CBC WITH AUTO DIFF [HEME] AM COMPREHENSIVE METABOLIC PN,CMP [CHEM] AM - Plan Plan:: 41 yo male admitted with pancreatitis. #1. Pancreatitis: -Patient will be started on a clear liquid diet with it advanced as tolerated today. Patient has also been switched over to by mouth pain medications. IV fluids have been discontinued but can be started again if he is not tolerating oral intake. -Right upper quadrant ultrasound shows fatty infiltrate of the liver but no acute findings. -Patient has concerns that his right upper quadrant pain is secondary to his gallbladder although all testing right now has been unremarkable. His ALP has returned to normal. We discussed with the patient that he may need an outpatient HIDA scan or a referral to a manager ecommerce. Patient voiced understanding. #2. Uncontrolled type 2 diabetes: -Continue NovoLog sliding scale. telehealth nurse educator recommends a long-acting insulin at discharge. #3. Dyslipidemia: -Triglycerides 520 and total cholesterol was 233. Patient will be started on statin therapy at the time of discharge. Disposition: 1-2 days pending improvement. He may be able to be discharged today. Tolerates oral intake.
== END 2017-09-08 15:00 | disposition home or self-care (01) ==
LOC: MW.ED 17:46 → MW.MS 19:49
PROVIDERS: ADMIT Internal Medicine; ATTEND Internal Medicine
DX: K85.90 Acute pancreatitis without necrosis or infection, unspecified (principal); E78.5 Hyperlipidemia, unspecified; E11.65 Type 2 diabetes mellitus with hyperglycemia; Z79.4 Long term (current) use of insulin; Z79.899 Other long term (current) drug therapy
CPT/HCPCS: 36415; 74022; 76700; 80053; 80061; 82962; 83036; 83690; 84484; 85025; 85610; 93005; 96361; 96372; 96374; 96375; 96376; 99285; A9270; C9113; G0378; J1650; J1815; J2270; J2405; J7040

== ENCOUNTER 2017-10-06 20:14 | Emergency (ER) | payer MEDICARE, OTHER ==
[2017-10-06] MEDS ORDERED: HYDROmorphone 2 MG/ML SDV IVPUSH ONE (20:38)
[2017-10-06] MEDS ORDERED: Sodium Chloride 0.9% 10 ML Syringe FLUSH PRN (20:38)
[2017-10-06] MEDS ORDERED: Ondansetron 4 MG/2 ML SDV IVPUSH ONE (20:38)
[2017-10-06] MEDS ORDERED: Sodium Chloride 0.9% 2.5 ML Syringe FLUSH PRN (20:38)
[2017-10-06] MEDS ORDERED: Sodium Chloride 0.9% 1,000 ML IV ONE (20:38)
--- NOTE | 2017-10-06 20:43 | EDM.PDOC ---
ED HPI GENERAL MEDICAL PROBLEM - General Chief Complaint: Back Pain or Injury Stated Complaint: BACK PAIN Time Seen by Provider: 10/06/17 20:28 - History of Present Illness INITIAL COMMENTS - FREE TEXT/NARRATIVE: HISTORY AND PHYSICAL: History of present illness: The patient is a 41-year-old male with a history of poorly controlled hypertension and diabetes, hypercholesterolemia and admission September 06 through September 08 of this year here at our hospital for pancreatitis. The patient says he has gallbladder trouble and has had episodes of upper abdominal pain and right upper quadrant pain but "not normal take his gallbladder out as the tests are always normal". Patient has a history of alcohol use and abuse in the past but says he only drinks socially now and after his last admission he did not connect and follow-up with the clinic physician or the telehealth nurse educator. The patient tells me he is no longer on oral medication and is taking insulin and his sugar is variable over the last 2-3 weeks ranging from 180 to 400s. He says he was unaware that he could connect with the telehealth nurse educator here after seeing her when he was an inpatient. He states to me he has diffuse pain extending from his upper back down to his lower back and throughout his entire abdomen. He says that originates from his abdomen and then travels to his back and it is associated with loose stools 5 times a day for the last 3 weeks without black or bloody stools. He has had nausea and vomiting intermittently and had 4 episodes of vomiting today which were not black or bloody. Patient says he has not been able to take much by mouth today because of the nausea and vomiting. Has not taken anything for pain and has not seen a provider over the last 3 weeks for this problem. He has no neurosensory changes in his extremities or weakness no headache chest pain or shortness of breath. He points to the area at his right lateral ribs as the area of most discomfort and has not had any recent trauma cough or upper respiratory symptoms. He has no lower extremity pain. Patient has not had any bowel or bladder disturbances. Review of systems: As per history of present illness and below otherwise all systems reviewed and negative. Past medical history: As per history of present illness and as reviewed below otherwise noncontributory. Surgical history: As per history of present illness and as reviewed below otherwise noncontributory. Social history: No reported history of drug or alcohol abuse. Family history: As per history of present illness and as reviewed below otherwise noncontributory. Physical exam: General: Well-developed well-nourished man who is overweight and nontoxic appearing. Vital signs were noted by me. HEENT: Atraumatic, normocephalic, pupils reactive, negative for conjunctival pallor or scleral icterus, mucous membranes moist, throat clear, neck supple, nontender, trachea midline. Lungs: Clear to auscultation, breath sounds equal bilaterally, chest nontender. Heart: S1S2, regular, negative for clicks, rubs, or JVD. Abdomen: Soft, nondistended, diffuse upper abdominal tenderness without rebound or guarding and bowel sounds are normoactive.. Negative for masses or hepatosplenomegaly. Negative for costovertebral tenderness. Pelvis: Stable nontender. Genitourinary: Deferred. Rectal: Deferred. Extremities: Atraumatic, negative for cords or calf pain. Neurovascular unremarkable. Full range of motion without defects or deficits Neuro: Awake, alert, oriented. Cranial nerves II through XII unremarkable. Cerebellum unremarkable. Motor and sensory unremarkable throughout. Exam nonfocal. Back: There are no midline step-offs tenderness defects of the thoracic or lumbar spine and no flank pain on palpation. When I palpate bilaterally the entire perimuscular area from the thoracic to lumbar spine the patient says he has tenderness. Diagnostics: EKG CBC CMP amylase lipase UA lactic acid's urine ketones magnesium level CT scan of the chest abdomen and pelvis Therapeutics: IV O2 monitor IV fluids Zofran Dilaudid Patient and family at bedside are aware of all testing results and absolute need to follow-up in the clinic and with the telehealth nurse educator. I will give him information to make those calls. I will give him Zofran for any nausea and vomiting he has and I will also give him pain medication via [facility]. Impression: Abdominal pain/complete back pain and discomfort; vomiting improved, history of diabetes hypertension and hypercholesterolemia for follow-up Definitive disposition and diagnosis as appropriate pending reevaluation and review of above. back Pain Score (Numeric/FACES): 10 - Related Data Allergies Allergy/AdvReac Type Severity Reaction Status Date / Time Penicillins Allergy Swelling Verified 10/06/17 20:26 Home Meds: Home Meds Insulin Aspart [NovoLOG] See Protocol SUBCUT TID #3 pen 09/08/17 [Rx] Insulin Glarg,Human.Rec.Analog [Lantus] 0 unit SUBCUT DAILY 10/06/17 [History] Past Medical History HEENT History: Reports: None Cardiovascular History: Reports: None Respiratory History: Reports: None Gastrointestinal History: Reports: None Genitourinary History: Reports: None Musculoskeletal History: Reports: None Neurological History: Reports: None Psychiatric History: Reports: Depression Endocrine/Metabolic History: Reports: None Hematologic History: Reports: None Immunologic History: Reports: None Oncologic (Cancer) History: Reports: None Dermatologic History: Reports: None - Infectious Disease History Infectious Disease History: Reports: None - Past Surgical History Head Surgeries/Procedures: Reports: None Musculoskeletal Surgical History: Reports: Arthroscopic Procedure Social & Family History - Family History Family Medical History: Noncontributory Cardiac: Reports: CAD, Hypertension Neurological: Reports: CVA Endocrine/Metabolic: Reports: Diabetes, type II Oncologic: Reports: Breast, Colon, Leukemia - Tobacco Use Smoking Status *Q: Never Smoker - Caffeine Use Caffeine Use: Reports: None - Recreational Drug Use Recreational Drug Use: No ED ROS GENERAL - Review of Systems Review Of Systems: ROS reveals no pertinent complaints other than HPI. ED EXAM, GENERAL - Physical Exam Exam: See Below (See dictation) Course - Vital Signs Last Recorded V/S: Last Vital Signs Temp 36.6 C 10/06/17 20:14 Pulse 105 H 10/06/17 20:14 Resp 18 10/06/17 20:14 BP 133/97 H 10/06/17 20:14 Pulse Ox 99 10/06/17 21:00 - Orders/Labs/Meds Orders: Active Orders 24 hr Category Date Time Status Cardiac Monitoring [RC] . DIRECTED Care 10/06/17 20:36 Active EKG Documentation Completion [RC] STAT Care 10/06/17 20:36 Active Oxygen Therapy, ED [RC] ASDIRECTED Care 10/06/17 20:36 Active Pulse Oximetry [RC] ASDIRECTED Care 10/06/17 20:36 Active Abdomen Pelvis w Cont [CT] Stat Exams 10/06/17 20:37 Taken Chest w Cont [CT] Stat Exams 10/06/17 20:37 Taken UA W/MICROSCOPIC [URIN] Stat Lab 10/06/17 21:14 Ordered Sodium Chloride 0.9% [Saline Flush] Med 10/06/17 20:38 Active 10 ml FLUSH ASDIRECTED PRN Sodium Chloride 0.9% [Saline Flush] Med 10/06/17 20:38 Active 2.5 ml FLUSH ASDIRECTED PRN Saline Lock Insert [OM.PC] Stat Oth 10/06/17 20:36 Ordered Medication Orders Sodium Chloride (Saline Flush) 10 ml FLUSH ASDIRECTED PRN PRN Reason: Keep Vein Open Sodium Chloride (Saline Flush) 2.5 ml FLUSH ASDIRECTED PRN PRN Reason: Keep Vein Open Labs: Laboratory Tests 10/06/17 10/06/17 10/06/17 Range/Units 20:48 20:48 20:48 WBC 6.97 (4.0-11.0) K/uL RBC 5.05 (4.50-5.90) M/uL Hgb 16.1 (13.0-17.0) g/dL Hct 45.3 (38.0-50.0) % MCV 89.7 (80.0-98.0) fL MCH 31.9 (27.0-32.0) pg MCHC 35.5 (31.0-37.0) g/dL RDW Std Deviation 41.6 (28.0-62.0) fl RDW Coeff of Torsten 13 (11.0-15.0) % Plt Count 174 (150-400) K/uL MPV 10.20 (7.40-12.00) fL Neut % (Auto) 51.5 (48.0-80.0) % Lymph % (Auto) 34.9 (16.0-40.0) % [place] % (Auto) 10.6 (0.0-15.0) % Eos % (Auto) 2.4 (0.0-7.0) % Baso % (Auto) 0.6 (0.0-1.5) % Neut # (Auto) 3.6 (1.4-5.7) K/uL Lymph # (Auto) 2.4 (0.6-2.4) K/uL [place] # (Auto) 0.7 (0.0-0.8) K/uL Eos # (Auto) 0.2 (0.0-0.7) K/uL Baso # (Auto) 0.0 (0.0-0.1) K/uL Nucleated RBC % 0.0 /100WBC Nucleated RBCs # 0 K/uL Lactate 2.1 H (0.20-2.00) mmol/L Sodium 137 (136-148) mmol/L Potassium 4.2 (3.5-5.1) mmol/L Chloride 101 (98-107) mmol/L Carbon Dioxide 29.5 (21.0-32.0) mmol/L BUN 12 (7.0-18.0) mg/dL Creatinine 1.1 (0.8-1.3) mg/dL Est Cr Clr Drug Dosing 95.04 mL/min Estimated GFR (MDRD) > 60.0 ml/min Glucose 296 H (74-106) mg/dL Calcium 9.1 (8.5-10.1) mg/dL Magnesium 1.8 (1.5-2.0) mg/dL Total Bilirubin 0.4 (0.2-1.0) mg/dL AST 32 (15-37) IU/L ALT 42 (14-63) IU/L Alkaline Phosphatase 149 H (46-116) U/L Total Protein 7.4 (6.4-8.2) g/dL Albumin 3.7 (3.4-5.0) g/dL Globulin 3.7 H (2.0-3.5) g/dL Albumin/Globulin Ratio 1.0 L (1.3-2.8) Amylase 105 (25-115) U/L Lipase 393 (73-393) U/L Urine Color Urine Appearance Urine pH (5.0-8.0) Ur Specific [place] (1.001-1.035) Urine Protein (NEGATIVE) mg/dL Urine Glucose (UA) (NEGATIVE) mg/dL Urine Ketones (NEGATIVE) mg/dL Urine Occult Blood (NEGATIVE) Urine Nitrite (NEGATIVE) Urine Bilirubin (NEGATIVE) Urine Urobilinogen (<2.0) EU/dL Ur Leukocyte Esterase (NEGATIVE) Urine RBC (0-2/HPF) Urine WBC (0-5/HPF) Ur Epithelial Cells (NONE-FEW) Urine Bacteria (NEGATIVE) Urine Mucus (NONE-MOD) Ketones (NEG) 10/06/17 10/06/17 Range/Units 20:48 21:14 WBC (4.0-11.0) K/uL RBC (4.50-5.90) M/uL Hgb (13.0-17.0) g/dL Hct (38.0-50.0) % MCV (80.0-98.0) fL MCH (27.0-32.0) pg MCHC (31.0-37.0) g/dL RDW Std Deviation (28.0-62.0) fl RDW Coeff of Torsten (11.0-15.0) % Plt Count (150-400) K/uL MPV (7.40-12.00) fL Neut % (Auto) (48.0-80.0) % Lymph % (Auto) (16.0-40.0) % [place] % (Auto) (0.0-15.0) % Eos % (Auto) (0.0-7.0) % Baso % (Auto) (0.0-1.5) % Neut # (Auto) (1.4-5.7) K/uL Lymph # (Auto) (0.6-2.4) K/uL [place] # (Auto) (0.0-0.8) K/uL Eos # (Auto) (0.0-0.7) K/uL Baso # (Auto) (0.0-0.1) K/uL Nucleated RBC % /100WBC Nucleated RBCs # K/uL Lactate (0.20-2.00) mmol/L Sodium (136-148) mmol/L Potassium (3.5-5.1) mmol/L Chloride (98-107) mmol/L Carbon Dioxide (21.0-32.0) mmol/L BUN (7.0-18.0) mg/dL Creatinine (0.8-1.3) mg/dL Est Cr Clr Drug Dosing mL/min Estimated GFR (MDRD) ml/min Glucose (74-106) mg/dL Calcium (8.5-10.1) mg/dL Magnesium (1.5-2.0) mg/dL Total Bilirubin (0.2-1.0) mg/dL AST (15-37) IU/L ALT (14-63) IU/L Alkaline Phosphatase (46-116) U/L Total Protein (6.4-8.2) g/dL Albumin (3.4-5.0) g/dL Globulin (2.0-3.5) g/dL Albumin/Globulin Ratio (1.3-2.8) Amylase (25-115) U/L Lipase (73-393) U/L Urine Color YELLOW Urine Appearance CLEAR Urine pH 6.0 (5.0-8.0) Ur Specific [place] 1.025 (1.001-1.035) Urine Protein 100 (NEGATIVE) mg/dL Urine Glucose (UA) >=1000 (NEGATIVE) mg/dL Urine Ketones TRACE H (NEGATIVE) mg/dL Urine Occult Blood TRACE-LYSED (NEGATIVE) Urine Nitrite NEGATIVE (NEGATIVE) Urine Bilirubin NEGATIVE (NEGATIVE) Urine Urobilinogen 0.2 (<2.0) EU/dL Ur Leukocyte Esterase NEGATIVE (NEGATIVE) Urine RBC 0-1 (0-2/HPF) Urine WBC 0-1 (0-5/HPF) Ur Epithelial Cells NOT SEEN (NONE-FEW) Urine Bacteria RARE (NEGATIVE) Urine Mucus LIGHT (NONE-MOD) Ketones NEGATIVE (NEG) Meds: Medications Generic Name Dose Route Start Last Admin Trade Name Prasanna PRN Reason Stop Dose Admin Sodium Chloride 10 ml 10/06/17 20:38 Saline Flush FLUSH ASDIRECTED PRN Keep Vein Open Sodium Chloride 2.5 ml 10/06/17 20:38 Saline Flush FLUSH ASDIRECTED PRN Keep Vein Open Discontinued Medications Generic Name Dose Route Start Last Admin Trade Name Prasanna PRN Reason Stop Dose Admin Hydromorphone HCl 1 mg 10/06/17 20:38 10/06/17 20:51 Dilaudid IVPUSH 10/06/17 20:39 1 mg ONETIME ONE Administration Sodium Chloride 1,000 mls @ 999 mls/hr 10/06/17 20:38 10/06/17 20:51 Normal Saline IV 10/06/17 21:38 999 mls/hr STAT ONE Administration Iopamidol 200 ml 10/06/17 21:30 10/06/17 21:31 Isovue Multipack-370 (76%) IVPUSH 10/06/17 21:31 110 ml ONETIME STA Administration Ondansetron HCl 4 mg 10/06/17 20:38 10/06/17 20:53 Zofran IVPUSH 10/06/17 20:39 4 mg ONETIME ONE Administration Departure - Departure Time of Disposition: 22:06 Disposition: Home, Self-Care 01 Condition: Good Clinical Impression: Back pain Qualifiers: Back pain location: back pain in unspecified location Chronicity: unspecified Back pain laterality: bilateral Qualified Code(s): M54.9 - Dorsalgia, unspecified Abdominal pain Qualifiers: Abdominal location: generalized Qualified Code(s): R10.84 - Generalized abdominal pain - Discharge Information Referrals: PCP,None [Primary Care Provider] - Forms: ED Department Discharge Additional Instructions: The following information is given to patients seen in the emergency department who are being discharged to home. This information is to outline your options for follow-up care. We provide all patients seen in our emergency department with a follow-up referral. The need for follow-up, as well as the timing and circumstances, are variable depending upon the specifics of your emergency department visit. If you don't have a primary care physician on staff, we will provide you with a referral. We always advise you to contact your personal physician following an emergency department visit to inform them of the circumstance of the visit and for follow-up with them and/or the need for any referrals to a consulting specialist. The emergency department will also refer you to a specialist when appropriate. This referral assures that you have the opportunity for followup care with a specialist. All of these measure are taken in an effort to provide you with optimal care, which includes your followup. Under all circumstances we always encourage you to contact your private physician who remains a resource for coordinating your care. When calling for followup care, please make the office aware that this follow-up is from your recent emergency room visit. If for any reason you are refused follow-up, please contact the [facility] emergency department at and ask to speak to the emergency department charge nurse. [facility] Primary care- Internal [place] [address] Please contact the telehealth nurse educator and the clinic for follow-up as we discussed. Please use medications you have been given via [facility], Zofran and tramadol, as you need. Please push sips of fluid and watch her diet. Return to ER as needed and as discussed - My Orders Last 24 Hours: My Active Orders 10/06/17 20:36 Cardiac Monitoring [RC] . DIRECTED EKG Documentation Completion [RC] STAT Oxygen Therapy, ED [RC] ASDIRECTED Pulse Oximetry [RC] ASDIRECTED Saline Lock Insert [OM.PC] Stat 10/06/17 20:37 Abdomen Pelvis w Cont [CT] Stat Chest w Cont [CT] Stat 10/06/17 20:38 Sodium Chloride 0.9% [Saline Flush] 10 ml FLUSH ASDIRECTED PRN Sodium Chloride 0.9% [Saline Flush] 2.5 ml FLUSH ASDIRECTED PRN 10/06/17 21:14 UA W/MICROSCOPIC [URIN] Stat - Assessment/Plan Last 24 Hours: My Active Orders 10/06/17 20:36 Cardiac Monitoring [RC] . DIRECTED EKG Documentation Completion [RC] STAT Oxygen Therapy, ED [RC] ASDIRECTED Pulse Oximetry [RC] ASDIRECTED Saline Lock Insert [OM.PC] Stat 10/06/17 20:37 Abdomen Pelvis w Cont [CT] Stat Chest w Cont [CT] Stat 10/06/17 20:38 Sodium Chloride 0.9% [Saline Flush] 10 ml FLUSH ASDIRECTED PRN Sodium Chloride 0.9% [Saline Flush] 2.5 ml FLUSH ASDIRECTED PRN 10/06/17 21:14 UA W/MICROSCOPIC [URIN] Stat
[2017-10-06 21:22] LABS: CHLORIDE,CL 101 mmol/L (98-107); SODIUM,NA 137 mmol/L (136-148)
[2017-10-06] MEDS ORDERED: Iopamidol 755 MG/ML 200 ML Multipack Bottle IVPUSH STA (21:30)
--- NOTE | 2017-10-07 13:59 | CT ---
EXAM DATE: 10/06/17 PATIENT'S AGE: 41 Patient: MARY EVERETT Facility: [place], [place] Site . Site : 1975 Study: CT Chest WITH [id number]/10/2018 9:29:06 PM Ordering Physician: Arpit Camarena Final Report: INDICATION: Mid back pain r/o dissection INDICATION: Patient with mid back pain, assess for aortic dissection. TECHNIQUE: 3 mm axial imaging has been performed through the chest after IV contrast. Sagittal and coronal reconstructions have been obtained. FINDINGS: Soft tissue windows demonstrate no mediastinal or hilar lymphadenopathy. No visualized central pulmonary emboli is seen. The aorta is well opacified. No evidence for aortic dissection. The size of aorta is within normal limits. No mediastinal or pericardial fluid is seen. No significant pleural fluid is seen. Axillary regions demonstrate no lymphadenopathy. Lung windows demonstrate no acute infiltrate. There is no pneumothorax. No interstitial lung disease is identified. There is some bridging osteophytes and mild degenerative change of the thoracic spine. No fracture is seen. No suspicious bone lesion is seen. IMPRESSION: 1. No evidence for aortic dissection. 2. No acute infiltrate is seen. No suspicious masses are seen. 3. There is mild spurring and degenerative change of the thoracic spine. Dictated by Josh Pinzon MD @ 10/06/2017 9:38:10 PM Please note that all CT scans at this facility use dose modulation, iterative reconstruction, and/or weight-based dosing when appropriate to reduce radiation dose to as low as reasonably achievable. Dictated by: Josh Pinzon MD @ 10/06/2017 21:38:21 (Electronic Signature) Report Signed by Proxy. [facility]
--- NOTE | 2017-10-07 14:01 | CT ---
EXAM DATE: 10/06/17 PATIENT'S AGE: 41 Patient: MARY EVERETT Facility: [place], [place] Site . Site : 1975 Study: CT Abdomen/Pelvis WITH [id number]/10/2018 9:30:17 PM Ordering Physician: Arpit Camarena Final Report: INDICATION: Upper abdominal pain, assess. TECHNIQUE: 3 mm axial imaging has been performed through the abdomen and pelvis after nonionic IV contrast. Sagittal and coronal reconstructions have been obtained. FINDINGS: There is some motion artifact. There is fatty infiltration of the liver. The superior aspect of the liver has not been well imaged. The upper liver appeared within normal limits on the CT of the chest. There is motion artifact through the pancreas. No definite inflammatory changes seen. No significant fluid is seen. The spleen, bilateral adrenal glands, bilateral kidneys are within normal limits. Retrocrural region and retroperitoneum demonstrate no lymphadenopathy. Iliac cindy chain and groin demonstrate no significant lymphadenopathy. No evidence for bowel obstruction. No free fluid noted. Surgical clips in the pelvis are noted. Visualized opacified abdominal aorta is within normal limits. The takeoff of the mesenteric vessels appear to be patent. IMPRESSION: 1. No evidence for acute pancreatitis. There is some motion artifact in the mid and upper abdomen. 2. No evidence for bowel obstruction. 3. Fatty infiltration of the liver is noted. 4. No abnormal fluid collections are seen. Dictated by Josh Pinzon MD @ 10/06/2017 9:43:07 PM Please note that all CT scans at this facility use dose modulation, iterative reconstruction, and/or weight-based dosing when appropriate to reduce radiation dose to as low as reasonably achievable. Dictated by: Josh Pinzon MD @ 10/06/2017 21:43:11 (Electronic Signature) Report Signed by Proxy. [facility]
== END 2017-10-06 22:30 | disposition home or self-care (01) ==
LOC: MW.ED 20:14
DX: R10.10 Upper abdominal pain, unspecified (principal); M54.9 Dorsalgia, unspecified; I10 Essential (primary) hypertension; E11.9 Type 2 diabetes mellitus without complications; E78.00 Pure hypercholesterolemia, unspecified; Z88.0 Allergy status to penicillin; Z79.4 Long term (current) use of insulin
CPT/HCPCS: 36415; 71260; 74177; 80053; 81001; 82009; 82150; 82962; 83605; 83690; 83735; 85025; 93005; 96361; 96374; 96375; 99284; J1170; J2405; J7040; Q9967

== ENCOUNTER 2017-10-17 23:44 | Emergency (ER) | payer MEDICARE ==
--- NOTE | 2017-10-18 00:11 | EDM.PDOC ---
ED HPI GENERAL MEDICAL PROBLEM - General Chief Complaint: Respiratory Problem Stated Complaint: SHORTNESS OF BREATH Time Seen by Provider: 10/18/17 00:08 - History of Present Illness INITIAL COMMENTS - FREE TEXT/NARRATIVE: HISTORY AND PHYSICAL: History of present illness: Patient's 41-year-old male presents for concern of shortness of breath he states he's been exposed to mold recently for which he is highly allergic. Review of systems: As per history of present illness and below otherwise all systems reviewed and negative. Past medical history: As per history of present illness and as reviewed below otherwise noncontributory. Surgical history: As per history of present illness and as reviewed below otherwise noncontributory. Social history: No reported history of drug or alcohol abuse. Family history: As per history of present illness and as reviewed below otherwise noncontributory. Physical exam: HEENT: Atraumatic, normocephalic, pupils reactive, negative for conjunctival pallor or scleral icterus, mucous membranes moist, throat clear, neck supple, nontender, trachea midline. Lungs: Clear to auscultation, breath sounds equal bilaterally, chest nontender. Heart: S1S2, regular, negative for clicks, rubs, or JVD. Abdomen: Soft, nondistended, nontender. Negative for masses or hepatosplenomegaly. Negative for costovertebral tenderness. Pelvis: Stable nontender. Genitourinary: Deferred. Rectal: Deferred. Extremities: Atraumatic, negative for cords or calf pain. Neurovascular unremarkable. Neuro: Awake, alert, oriented. Cranial nerves II through XII unremarkable. Cerebellum unremarkable. Motor and sensory unremarkable throughout. Exam nonfocal. Diagnostics: CBC CMP troponin chest x-ray EKG Therapeutics: IV O2 monitor Impression: #1 intermittent dyspnea #2 history of mold exposure Definitive disposition and diagnosis as appropriate pending reevaluation and review of above. chest;upper abdomen Pain Score (Numeric/FACES): 10 - Related Data Allergies Allergy/AdvReac Type Severity Reaction Status Date / Time Penicillins Allergy Swelling Verified 10/17/17 23:58 Home Meds: Home Meds Insulin Aspart [NovoLOG] See Protocol SUBCUT TID #3 pen 09/08/17 [Rx] Insulin Glarg,Human.Rec.Analog [Lantus] 0 unit SUBCUT DAILY 10/06/17 [History] metFORMIN [Glucophage XR] 1 tab PO TID 10/17/17 [History] Past Medical History HEENT History: Reports: None Cardiovascular History: Reports: Hypertension Respiratory History: Reports: Asthma Gastrointestinal History: Reports: Other (See Below) Other Gastrointestinal History: diverticulitis Genitourinary History: Reports: None Musculoskeletal History: Reports: None Neurological History: Reports: None Psychiatric History: Reports: Depression Endocrine/Metabolic History: Reports: Diabetes, Type II Hematologic History: Reports: None Immunologic History: Reports: None Oncologic (Cancer) History: Reports: None Dermatologic History: Reports: None - Infectious Disease History Infectious Disease History: Reports: None - Past Surgical History Head Surgeries/Procedures: Reports: None Musculoskeletal Surgical History: Reports: Arthroscopic Procedure, Shoulder Surgery, Other (See Below) Other Musculoskeletal Surgeries/Procedures:: knee sx Social & Family History - Family History Family Medical History: Noncontributory Cardiac: Reports: CAD, Hypertension Neurological: Reports: CVA Endocrine/Metabolic: Reports: Diabetes, type II Oncologic: Reports: Breast, Colon, Leukemia - Tobacco Use Smoking Status *Q: Never Smoker - Caffeine Use Caffeine Use: Reports: None - Recreational Drug Use Recreational Drug Use: No ED ROS GENERAL - Review of Systems Review Of Systems: ROS reveals no pertinent complaints other than HPI. ED EXAM, GENERAL - Physical Exam Exam: See Below (See dictation) Course - Vital Signs Last Recorded V/S: Last Vital Signs Temp 36.4 C 10/17/17 23:44 Pulse 93 10/18/17 01:20 Resp 18 10/18/17 01:20 BP 142/84 H 10/18/17 01:20 Pulse Ox 94 L 10/17/17 23:44 - Orders/Labs/Meds Orders: Active Orders 24 hr Category Date Time Status EKG Documentation Completion [RC] STAT Care 10/17/17 23:53 Active Chest 2V [CR] Stat Exams 10/17/17 23:54 Taken Labs: Laboratory Tests 10/17/17 10/17/17 10/17/17 Range/Units 00:10 00:10 00:10 WBC 7.11 (4.0-11.0) K/uL RBC 4.76 (4.50-5.90) M/uL Hgb 15.1 (13.0-17.0) g/dL Hct 42.8 (38.0-50.0) % MCV 89.9 (80.0-98.0) fL MCH 31.7 (27.0-32.0) pg MCHC 35.3 (31.0-37.0) g/dL RDW Std Deviation 41.8 (28.0-62.0) fl RDW Coeff of Torsten 13 (11.0-15.0) % Plt Count 172 (150-400) K/uL MPV 10.10 (7.40-12.00) fL Neut % (Auto) 42.0 L (48.0-80.0) % Lymph % (Auto) 40.9 H (16.0-40.0) % [place] % (Auto) 13.9 (0.0-15.0) % Eos % (Auto) 2.4 (0.0-7.0) % Baso % (Auto) 0.8 (0.0-1.5) % Neut # (Auto) 3.0 (1.4-5.7) K/uL Lymph # (Auto) 2.9 H (0.6-2.4) K/uL [place] # (Auto) 1.0 H (0.0-0.8) K/uL Eos # (Auto) 0.2 (0.0-0.7) K/uL Baso # (Auto) 0.1 (0.0-0.1) K/uL Nucleated RBC % 0.0 /100WBC Nucleated RBCs # 0 K/uL INR 1.07 Sodium 137 (136-148) mmol/L Potassium 4.2 (3.5-5.1) mmol/L Chloride 103 (98-107) mmol/L Carbon Dioxide 29.1 (21.0-32.0) mmol/L BUN 9 (7.0-18.0) mg/dL Creatinine 1.2 (0.8-1.3) mg/dL Est Cr Clr Drug Dosing 87.12 mL/min Estimated GFR (MDRD) > 60.0 ml/min Glucose 271 H (74-106) mg/dL Calcium 8.8 (8.5-10.1) mg/dL Total Bilirubin 0.3 (0.2-1.0) mg/dL AST 31 (15-37) IU/L ALT 34 (14-63) IU/L Alkaline Phosphatase 123 H (46-116) U/L Troponin I < 0.050 (0.000-0.056) ng/mL Total Protein 7.4 (6.4-8.2) g/dL Albumin 3.4 (3.4-5.0) g/dL Globulin 4.0 H (2.0-3.5) g/dL Albumin/Globulin Ratio 0.9 L (1.3-2.8) Departure - Departure Time of Disposition: 13:40 Disposition: Home, Self-Care 01 Condition: Good Clinical Impression: Dyspnea - Discharge Information Instructions: Shortness of Breath, Adult, [id number], Nonspecific Chest Pain , [id number] Referrals: PCP,None [Primary Care Provider] - Forms: ED Department Discharge - My Orders Last 24 Hours: My Active Orders 10/17/17 23:53 EKG Documentation Completion [RC] STAT 10/17/17 23:54 Chest 2V [CR] Stat - Assessment/Plan Last 24 Hours: My Active Orders 10/17/17 23:53 EKG Documentation Completion [RC] STAT 10/17/17 23:54 Chest 2V [CR] Stat
[2017-10-18 00:42] LABS: CHLORIDE,CL 103 mmol/L (98-107); SODIUM,NA 137 mmol/L (136-148)
--- NOTE | 2017-10-18 16:10 | CR ---
EXAM DATE: 10/17/17 PATIENT'S AGE: 41 Patient: MARY EVERETT Facility: [place], [place] Site . Site : 1975 Study: XRay Chest [id number]/22/2018 12:41:06 AM Ordering Physician: Doctor Diez Final Report: Indication: Chest pain. Shortness of breath Technique: Chest 2 views Comparison: 09/06/2017. Findings/Impression: Cardiovascular and mediastinum: Heart size and vasculature are normal in caliber and appearance. Mediastinum is within normal limits. Lungs and pleural spaces: A small ill defined lateral right basilar opacity, not well seen on the prior study. Correlate clinically and followup to exclude a small evolving infiltrate. No pleural effusions. Bones and soft tissues: No significant change. Dictated by Ralph Schaffer MD @ 10/18/2017 12:50:38 AM Dictated by: Ralph Schaffer MD @ 10/18/2017 00:50:55 (Electronic Signature) Report Signed by Proxy. JEROMY
== END 2017-10-18 01:20 | disposition home or self-care (01) ==
LOC: MW.ED 23:44
DX: R06.00 Dyspnea, unspecified (principal); Z77.120 Contact with and (suspected) exposure to mold (toxic); E11.9 Type 2 diabetes mellitus without complications; Z88.0 Allergy status to penicillin; Z79.4 Long term (current) use of insulin
CPT/HCPCS: 36415; 71046; 71046-26; 80053; 84484; 85025; 85610; 93005; 99283; 99285-25

== ENCOUNTER 2017-10-23 20:53 | Emergency (ER) | payer MEDICARE ==
[2017-10-23] MEDS ORDERED: Sodium Chloride 0.9% 10 ML Syringe FLUSH PRN (21:14)
[2017-10-23] MEDS ORDERED: Sodium Chloride 0.9% 1,000 ML IV ONE (21:14)
[2017-10-23] MEDS ORDERED: Aspirin 81 MG Tab.Chew PO ONE (21:14)
[2017-10-23] MEDS ORDERED: Sodium Chloride 0.9% 2.5 ML Syringe FLUSH PRN (21:14)
--- NOTE | 2017-10-23 21:25 | EDM.PDOC ---
ED HPI GENERAL MEDICAL PROBLEM - General Chief Complaint: Chest Pain Stated Complaint: STOMACH PAIN/DIARRHEA/FEVER/VOMITING Time Seen by Provider: 10/23/17 21:25 Source of Information: Reports: Patient History Limitations: Reports: Intoxication - History of Present Illness INITIAL COMMENTS - FREE TEXT/NARRATIVE: HISTORY AND PHYSICAL: History of present illness: 41-year-old male visiting emergency department with chief complaint of chest and right upper quadrant pain starting last evening. Patient states that last evening he was not feeling well. He had 3 episodes of nausea and vomiting. Today he continued to feel ill with 2 episodes of vomiting and continued nausea. He has had associated lower chest pain without radiation with no diaphoresis. He does have right upper quadrant abdominal pain as well as epigastric pain. Does feel that his "gallbladder might be acting up". He denies any blood in his stool or dark tarry stools. He has had 1 week of loose stools. Denies any associated fevers or chills. States that he was told that he may have had a heart attack before. Currently denies any overt chest pain, palpitations, shortness breath, syncopal episode, or focal neurologic deficits. Does have an allergy to penicillins with anaphylactic type reaction. Review of systems: As per history of present illness and below otherwise all systems reviewed and negative. Past medical history: As per history of present illness and as reviewed below otherwise noncontributory. Surgical history: As per history of present illness and as reviewed below otherwise noncontributory. Social history: No reported history of drug or alcohol abuse. Family history: As per history of present illness and as reviewed below otherwise noncontributory. Physical exam: HEENT: Atraumatic, normocephalic, pupils reactive, negative for conjunctival pallor or scleral icterus, mucous membranes moist, throat clear, neck supple, nontender, trachea midline. Lungs: Clear to auscultation, breath sounds equal bilaterally, chest nontender. Heart: S1S2, regular, negative for clicks, rubs, or JVD. Abdomen: Soft, epigastric and right upper quadrant tenderness to deep palpation. Negative for masses or hepatosplenomegaly. Negative for costovertebral tenderness. Pelvis: Stable nontender. Genitourinary: Deferred. Rectal: Deferred. Extremities: Atraumatic, negative for cords or calf pain. Neurovascular unremarkable. Neuro: Awake, alert, oriented. Cranial nerves II through XII unremarkable. Cerebellum unremarkable. Motor and sensory unremarkable throughout. Exam nonfocal. Diagnostics: CBC, CMP, troponin, INR, UA/UC, chest x-ray, EKG, CT abdomen and pelvis, Monospot Therapeutics: 1 L normal saline ,2 mg IV morphine 1 Impression: Viral gastroenteritis Plan: EKG, CBC, CMP, UA, troponin, INR, chest x-ray were all unremarkable. Abdomen pelvis CT did show mild increase in spleen size. I did do a Monospot which was negative. Patient most likely has viral gastroenteritis. This was communicated to the patient he was instructed to increase fluid hydration as well as take Zofran prescription as needed for nausea and vomiting. He should also follow for primary care physician which we gave him information. Patient was discharged in good condition with above instructions and a prescription for Zofran. mid-chest Pain Score (Numeric/FACES): 10 - Related Data Allergies Allergy/AdvReac Type Severity Reaction Status Date / Time Iodinated Contrast- Oral and Allergy Nausea and Verified 10/23/17 22:57 IV Dye Vomiting Penicillins Allergy Swelling Verified 10/17/17 23:58 Home Meds: Home Meds Insulin Aspart [NovoLOG] See Protocol SUBCUT TID #3 pen 09/08/17 [Rx] Insulin Glarg,Human.Rec.Analog [Lantus] 0 unit SUBCUT DAILY 10/06/17 [History] metFORMIN [Glucophage XR] 1 tab PO TID 10/17/17 [History] Past Medical History HEENT History: Reports: None Cardiovascular History: Reports: Hypertension Respiratory History: Reports: Asthma Gastrointestinal History: Reports: Other (See Below) Other Gastrointestinal History: diverticulitis Genitourinary History: Reports: None Musculoskeletal History: Reports: None Neurological History: Reports: None Psychiatric History: Reports: Depression Endocrine/Metabolic History: Reports: Diabetes, Type II Hematologic History: Reports: None Immunologic History: Reports: None Oncologic (Cancer) History: Reports: None Dermatologic History: Reports: None - Infectious Disease History Infectious Disease History: Reports: None - Past Surgical History Head Surgeries/Procedures: Reports: None Musculoskeletal Surgical History: Reports: Arthroscopic Procedure, Shoulder Surgery, Other (See Below) Other Musculoskeletal Surgeries/Procedures:: knee sx Social & Family History - Family History Family Medical History: Noncontributory Cardiac: Reports: CAD, Hypertension Neurological: Reports: CVA Endocrine/Metabolic: Reports: Diabetes, type II Oncologic: Reports: Breast, Colon, Leukemia - Caffeine Use Caffeine Use: Reports: None ED ROS GENERAL - Review of Systems Review Of Systems: See Below ED EXAM, GENERAL - Physical Exam Exam: See Below Course - Vital Signs Last Recorded V/S: Last Vital Signs Temp 97.1 F 10/23/17 20:53 Pulse 88 10/23/17 22:10 Resp 12 10/23/17 22:10 BP 140/81 10/23/17 22:10 Pulse Ox 95 10/23/17 22:10 - Orders/Labs/Meds Orders: Active Orders 24 hr Category Date Time Status Cardiac Monitoring [RC] . DIRECTED Care 10/23/17 21:14 Active EKG Documentation Completion [RC] STAT Care 10/23/17 21:14 Active Oxygen Therapy [RC] ASDIRECTED Care 10/23/17 21:14 Active Pulse Oximetry [RC] ASDIRECTED Care 10/23/17 21:14 Active Abdomen Pelvis w Cont [CT] Stat Exams 10/23/17 21:26 Taken Chest 1V Frontal [CR] Stat Exams 10/23/17 21:14 Taken UA W/MICROSCOPIC [URIN] Stat Lab 10/23/17 22:02 Ordered Sodium Chloride 0.9% [Saline Flush] Med 10/23/17 21:14 Active 10 ml FLUSH ASDIRECTED PRN Sodium Chloride 0.9% [Saline Flush] Med 10/23/17 21:14 Active 2.5 ml FLUSH ASDIRECTED PRN Saline Lock Insert [OM.PC] Stat Oth 10/23/17 21:14 Ordered Medication Orders Sodium Chloride (Saline Flush) 10 ml FLUSH ASDIRECTED PRN PRN Reason: Keep Vein Open Last Admin: 10/23/17 21:33 Dose: 10 ml Sodium Chloride (Saline Flush) 2.5 ml FLUSH ASDIRECTED PRN PRN Reason: Keep Vein Open Last Admin: 10/23/17 21:33 Dose: 2.5 ml Labs: Laboratory Tests 10/23/17 10/23/17 10/23/17 Range/Units 09:25 09:25 09:25 WBC 6.92 (4.0-11.0) K/uL RBC 5.18 (4.50-5.90) M/uL Hgb 16.5 (13.0-17.0) g/dL Hct 46.5 (38.0-50.0) % MCV 89.8 (80.0-98.0) fL MCH 31.9 (27.0-32.0) pg MCHC 35.5 (31.0-37.0) g/dL RDW Std Deviation 41.1 (28.0-62.0) fl RDW Coeff of Torsten 13 (11.0-15.0) % Plt Count 178 (150-400) K/uL MPV 10.30 (7.40-12.00) fL Neut % (Auto) 48.2 (48.0-80.0) % Lymph % (Auto) 37.1 (16.0-40.0) % [place] % (Auto) 11.0 (0.0-15.0) % Eos % (Auto) 3.0 (0.0-7.0) % Baso % (Auto) 0.7 (0.0-1.5) % Neut # (Auto) 3.3 (1.4-5.7) K/uL Lymph # (Auto) 2.6 H (0.6-2.4) K/uL [place] # (Auto) 0.8 (0.0-0.8) K/uL Eos # (Auto) 0.2 (0.0-0.7) K/uL Baso # (Auto) 0.1 (0.0-0.1) K/uL Nucleated RBC % 0.0 /100WBC Nucleated RBCs # 0 K/uL INR 1.06 Sodium 137 (136-148) mmol/L Potassium 3.8 (3.5-5.1) mmol/L Chloride 100 (98-107) mmol/L Carbon Dioxide 29.0 (21.0-32.0) mmol/L BUN 10 (7.0-18.0) mg/dL Creatinine 1.1 (0.8-1.3) mg/dL Est Cr Clr Drug Dosing 95.04 mL/min Estimated GFR (MDRD) > 60.0 ml/min Glucose 348 H (74-106) mg/dL Calcium 8.8 (8.5-10.1) mg/dL Total Bilirubin 0.3 (0.2-1.0) mg/dL AST 27 (15-37) IU/L ALT 33 (14-63) IU/L Alkaline Phosphatase 142 H (46-116) U/L Troponin I < 0.050 (0.000-0.056) ng/mL Total Protein 7.7 (6.4-8.2) g/dL Albumin 3.5 (3.4-5.0) g/dL Globulin 4.2 H (2.0-3.5) g/dL Albumin/Globulin Ratio 0.8 L (1.3-2.8) Urine Color Urine Appearance Urine pH (5.0-8.0) Ur Specific [place] (1.001-1.035) Urine Protein (NEGATIVE) mg/dL Urine Glucose (UA) (NEGATIVE) mg/dL Urine Ketones (NEGATIVE) mg/dL Urine Occult Blood (NEGATIVE) Urine Nitrite (NEGATIVE) Urine Bilirubin (NEGATIVE) Urine Urobilinogen (<2.0) EU/dL Ur Leukocyte Esterase (NEGATIVE) Urine RBC (0-2/HPF) Urine WBC (0-5/HPF) Ur Epithelial Cells (NONE-FEW) Urine Bacteria (NEGATIVE) Monoscreen (NEG) 10/23/17 10/23/17 Range/Units 21:25 22:02 WBC (4.0-11.0) K/uL RBC (4.50-5.90) M/uL Hgb (13.0-17.0) g/dL Hct (38.0-50.0) % MCV (80.0-98.0) fL MCH (27.0-32.0) pg MCHC (31.0-37.0) g/dL RDW Std Deviation (28.0-62.0) fl RDW Coeff of [place] (11.0-15.0) % Plt Count (150-400) K/uL MPV (7.40-12.00) fL Neut % (Auto) (48.0-80.0) % Lymph % (Auto) (16.0-40.0) % [place] % (Auto) (0.0-15.0) % Eos % (Auto) (0.0-7.0) % Baso % (Auto) (0.0-1.5) % Neut # (Auto) (1.4-5.7) K/uL Lymph # (Auto) (0.6-2.4) K/uL [place] # (Auto) (0.0-0.8) K/uL Eos # (Auto) (0.0-0.7) K/uL Baso # (Auto) (0.0-0.1) K/uL Nucleated RBC % /100WBC Nucleated RBCs # K/uL INR Sodium (136-148) mmol/L Potassium (3.5-5.1) mmol/L Chloride (98-107) mmol/L Carbon Dioxide (21.0-32.0) mmol/L BUN (7.0-18.0) mg/dL Creatinine (0.8-1.3) mg/dL Est Cr Clr Drug Dosing mL/min Estimated GFR (MDRD) ml/min Glucose (74-106) mg/dL Calcium (8.5-10.1) mg/dL Total Bilirubin (0.2-1.0) mg/dL AST (15-37) IU/L ALT (14-63) IU/L Alkaline Phosphatase (46-116) U/L Troponin I (0.000-0.056) ng/mL Total Protein (6.4-8.2) g/dL Albumin (3.4-5.0) g/dL Globulin (2.0-3.5) g/dL Albumin/Globulin Ratio (1.3-2.8) Urine Color YELLOW Urine Appearance CLEAR Urine pH 6.0 (5.0-8.0) Ur Specific [place] 1.015 (1.001-1.035) Urine Protein 30 (NEGATIVE) mg/dL Urine Glucose (UA) >=1000 (NEGATIVE) mg/dL Urine Ketones NEGATIVE (NEGATIVE) mg/dL Urine Occult Blood NEGATIVE (NEGATIVE) Urine Nitrite NEGATIVE (NEGATIVE) Urine Bilirubin NEGATIVE (NEGATIVE) Urine Urobilinogen 0.2 (<2.0) EU/dL Ur Leukocyte Esterase NEGATIVE (NEGATIVE) Urine RBC 0-2 (0-2/HPF) Urine WBC 0-1 (0-5/HPF) Ur Epithelial Cells RARE (NONE-FEW) Urine Bacteria FEW (NEGATIVE) Monoscreen NEGATIVE (NEG) Meds: Medications Generic Name Dose Route Start Last Admin Trade Name Freq PRN Reason Stop Dose Admin Sodium Chloride 10 ml 10/23/17 21:14 10/23/17 21:33 Saline Flush FLUSH 10 ml ASDIRECTED PRN Administration Keep Vein Open Sodium Chloride 2.5 ml 10/23/17 21:14 10/23/17 21:33 Saline Flush FLUSH 2.5 ml ASDIRECTED PRN Administration Keep Vein Open Discontinued Medications Generic Name Dose Route Start Last Admin Trade Name Freq PRN Reason Stop Dose Admin Aspirin 324 mg 10/23/17 21:14 10/23/17 21:32 Aspirin PO 10/23/17 21:15 324 mg ONETIME ONE Administration Hydromorphone HCl 0.5 mg 10/23/17 22:12 10/23/17 22:49 Dilaudid IM 10/23/17 22:13 Not Given ONETIME ONE Hydromorphone HCl 0.5 mg 10/23/17 22:50 10/23/17 22:14 Dilaudid IVPUSH 10/23/17 22:51 0.5 mg ONETIME ONE Administration Sodium Chloride 1,000 mls @ 999 mls/hr 10/23/17 21:14 10/23/17 21:32 Normal Saline IV 10/23/17 22:14 999 mls/hr .Bolus ONE Administration Iopamidol 85 ml 10/23/17 22:54 Isovue Multipack-370 (76%) IVPUSH 10/23/17 22:55 ONETIME STA Morphine Sulfate 2 mg 10/23/17 21:30 10/23/17 21:35 Morphine IVPUSH 10/23/17 21:31 2 mg ONETIME ONE Administration Ondansetron HCl Confirm 10/23/17 22:15 10/23/17 22:20 Zofran Administered 10/23/17 22:16 Not Given Dose 4 mg .ROUTE .STK-MED ONE Ondansetron HCl 4 mg 10/23/17 22:20 10/23/17 22:13 Zofran IVPUSH 10/23/17 22:21 4 mg ONETIME ONE Administration Departure - Departure Time of Disposition: 01:13 Disposition: Home, Self-Care 01 Condition: Good Clinical Impression: Viral gastroenteritis - Discharge Information Referrals: PCP,None [Primary Care Provider] - Forms: ED Department Discharge Additional Instructions: My general discharge The following information is given to patients seen in the emergency department who are being discharged to home. This information is to outline your options for follow-up care. We provide all patients seen in our emergency department with a follow-up referral. The need for follow-up, as well as the timing and circumstances, are variable depending upon the specifics of your emergency department visit. If you don't have a primary care physician on staff, we will provide you with a referral. We always advise you to contact your personal physician following an emergency department visit to inform them of the circumstance of the visit and for follow-up with them and/or the need for any referrals to a consulting specialist. The emergency department will also refer you to a specialist when appropriate. This referral assures that you have the opportunity for follow-up care with a specialist. All of these measure are taken in an effort to provide you with optimal care, which includes your follow-up. Under all circumstances we always encourage you to contact your private physician who remains a resource for coordinating your care. When calling for follow-up care, please make the office aware that this follow-up is from your recent emergency room visit. If for any reason you are refused follow-up, please contact the [facility] Emergency Department at and asked to speak to the emergency department charge nurse. [facility] [address] [place] [address] - My Orders Last 24 Hours: My Active Orders 10/23/17 21:14 Cardiac Monitoring [RC] . DIRECTED EKG Documentation Completion [RC] STAT Oxygen Therapy [RC] ASDIRECTED Pulse Oximetry [RC] ASDIRECTED Chest 1V Frontal [CR] Stat Sodium Chloride 0.9% [Saline Flush] 10 ml FLUSH ASDIRECTED PRN Sodium Chloride 0.9% [Saline Flush] 2.5 ml FLUSH ASDIRECTED PRN Saline Lock Insert [OM.PC] Stat 10/23/17 21:26 Abdomen Pelvis w Cont [CT] Stat 10/23/17 22:02 UA W/MICROSCOPIC [URIN] Stat - Assessment/Plan Last 24 Hours: My Active Orders 10/23/17 21:14 Cardiac Monitoring [RC] . DIRECTED EKG Documentation Completion [RC] STAT Oxygen Therapy [RC] ASDIRECTED Pulse Oximetry [RC] ASDIRECTED Chest 1V Frontal [CR] Stat Sodium Chloride 0.9% [Saline Flush] 10 ml FLUSH ASDIRECTED PRN Sodium Chloride 0.9% [Saline Flush] 2.5 ml FLUSH ASDIRECTED PRN Saline Lock Insert [OM.PC] Stat 10/23/17 21:26 Abdomen Pelvis w Cont [CT] Stat 10/23/17 22:02 UA W/MICROSCOPIC [URIN] Stat
[2017-10-23] MEDS ORDERED: Morphine 2 MG/ML Syringe IVPUSH ONE (21:30)
[2017-10-23 22:06] LABS: CHLORIDE,CL 100 mmol/L (98-107); SODIUM,NA 137 mmol/L (136-148)
[2017-10-23] MEDS: HYDROmorphone 2 MG/ML SDV IM ONE ×2 (22:12→22:49)
[2017-10-23] MEDS ORDERED: Ondansetron 4 MG/2 ML SDV ONE (22:15)
[2017-10-23] MEDS ORDERED: Ondansetron 4 MG/2 ML SDV IVPUSH ONE (22:20)
[2017-10-23] MEDS ORDERED: HYDROmorphone 2 MG/ML Syringe IVPUSH ONE (22:50)
[2017-10-23] MEDS ORDERED: Iopamidol 755 MG/ML 200 ML Multipack Bottle IVPUSH STA (22:54)
--- NOTE | 2017-10-25 14:02 | CR ---
EXAM DATE: 10/23/17 PATIENT'S AGE: 41 Patient: MARY EVERETT Facility: [place], [place] Site . Site : 1975 Study: XRay Chest [id number]/27/2018 10:35:24 PM Ordering Physician: Antione Mata Final Report: INDICATION: chest pain COMPARISON: Chest x-ray dated 18 Oct 2017. FINDINGS: A single PA chest x-ray shows a normal cardiac silhouette. The lungs show no focal pulmonary opacities. Sharp pleural margins. No pneumothorax. IMPRESSION: No evidence of acute pulmonary abnormalities. Dictated by Charli Torrez MD @ 10/23/2017 10:57:42 PM Dictated by: Charli Torrez MD @ 10/23/2017 22:57:52 (Electronic Signature) Report Signed by Proxy. [facility]
--- NOTE | 2017-10-25 14:05 | CT ---
EXAM DATE: 10/23/17 PATIENT'S AGE: 41 Patient: MARY EVERETT Facility: [place], [place] Site . Site : 1975 Study: CT Abdomen/Pelvis WITH [id number]/27/2018 10:44:25 PM Ordering Physician: Antione Mata Final Report: HISTORY: General abdominal pain. TECHNIQUE: The abdomen and pelvis were scanned using helical technique at 3 mm intervals after 85 cc of Isovue-370. Sagittal and reconstructions were performed. Technologist notes patient had a reaction during the exam resulting in motion artifact. COMPARISON: 06 Oct 2017. FINDINGS: Lung bases: Images are degraded by motion. No lobar consolidation. Liver and gallbladder: The visualized liver is hypodense consistent with fatty infiltration. No calcified gallstones. Spleen, pancreas and adrenal glands: The spleen is enlarged measuring 15.6 cm in AP diameter. Pancreatic parenchyma is homogeneous. Peripancreatic fat is well defined. There is stable generous portacaval lymph nodes. Adrenal glands are normal. Kidneys and bladder: Images degraded by motion. Symmetric nephrograms. No hydronephrosis. The bladder is incompletely distended. Retroperitoneum and lymph nodes: Aorta is normal in caliber. Small periaortic lymph nodes are present. No pathologic adenopathy. GI tract: The stomach is mildly distended with fluid. No dilated small bowel loops are seen. Normal appendix. Images of the ascending colon are degraded by motion. Stool and gas is seen throughout the colon. There is diverticula of the descending and sigmoid colon. No pericolonic inflammatory change. There are surgical clips about the mid sigmoid colon. There is no free air in the abdomen. There is no free fluid the pelvis. Pelvic organs: Prostate is normal. Osseous structures: Degenerative changes within the lumbar spine. Vertebral body heights maintained. IMPRESSION: 1. Fatty infiltration of liver. 2. Splenomegaly. 3. No evidence of pancreatitis. 4. There are generous portacaval lymph nodes without change. No pathologic periaortic or pelvic sidewall lymphadenopathy. 5. Colonic diverticulosis. Dictated by Laine Burton MD @ 10/23/2017 11:15:09 PM Please note that all CT scans at this facility use dose modulation, iterative reconstruction, and/or weight-based dosing when appropriate to reduce radiation dose to as low as reasonably achievable. Dictated by: Laine Burton MD @ 10/23/2017 23:15:32 (Electronic Signature) Report Signed by Proxy. MTDD
== END 2017-10-24 01:26 | disposition home or self-care (01) ==
LOC: MW.ED 20:53
DX: A08.4 Viral intestinal infection, unspecified (principal); E11.9 Type 2 diabetes mellitus without complications; Z88.0 Allergy status to penicillin; Z91.041 Radiographic dye allergy status; Z79.4 Long term (current) use of insulin
CPT/HCPCS: 36415; 71045; 74177; 80053; 81001; 84484; 85025; 85610; 86308; 93005; 96361; 96374; 96375; 99285; A9270; J1170; J2270; J2405; J7040; 99283

== ENCOUNTER 2017-11-21 06:37 | Observation (INO) | payer MEDICARE, OTHER ==
[~2017-11-21 06:37] MED LIST: Lactated Ringers 1,000 ML IV SCH; cefOXitin 2 GM in Premix Bag 1 BAG IV ONE
[2017-11-21] MEDS ORDERED: ceFAZolin 1 GM Vial ONE (07:14)
[2017-11-21] MEDS ORDERED: Lidocaine 2% 5 ML SDV ONE (07:15)
[2017-11-21] MEDS ORDERED: Ondansetron 4 MG/2 ML SDV ONE (07:15)
[2017-11-21] MEDS ORDERED: Bupivacaine 0.5% 10 ML SDV ONE (07:15)
[2017-11-21] MEDS ORDERED: Rocuronium 10 MG/ML 10 ML Syringe ONE (07:15)
[2017-11-21] MEDS ORDERED: fentaNYL 250 MCG/5 ML SDV ONE ×2 (07:16→08:41)
[2017-11-21] MEDS ORDERED: Propofol 200 MG/20 ML SDV ONE (07:16)
[2017-11-21] MEDS ORDERED: Midazolam 1 MG/ML 2 ML SDV ONE (07:16)
[2017-11-21] MEDS ORDERED: Scopolamine 1.5 MG Transdermal Patch TRDERM PRN (07:20)
--- NOTE | 2017-11-21 07:26 | PCM.PREANE ---
Preanesthetic Assessment - Anesthesia/Transfusion/Family Hx Anesthesia History: Prior Anesthesia Without Reaction Family History of Anesthesia Reaction: No Transfusion History: Prior Transfusion Without Reaction Intubation History: Unknown - Review of Systems General: No Symptoms Pulmonary: No Symptoms Cardiovascular: No Symptoms Gastrointestinal: Abdominal Pain Neurological: No Symptoms Other: Reports: None - Physical Assessment O2 Sat by Pulse Oximetry: 94 Respiratory Rate: 16 Vital Signs: Last Vital Signs Temp 36.9 C 11/21/17 07:20 Pulse 87 11/21/17 07:20 Resp 16 11/21/17 07:20 BP 141/77 H 11/21/17 07:20 Pulse Ox 94 L 11/21/17 07:20 Height: 1.83 m Weight: 120.656 kg ASA Class: 3 Mental Status: Alert & Oriented x3 Airway Class: Mallampati = 2 Dentition: Reports: Normal Dentition, Missing Tooth/Teeth (multiple missing .\\, both sides - lower) Thyro-Mental Finger Breadths: 3 Mouth Opening Finger Breadths: 3 ROM/Head Extension: Full Lungs: Clear to Auscultation, Normal Respiratory Effort Cardiovascular: Regular Rate, Regular Rhythm - Lab Values: Laboratory Last Values POC Glucose 173 mg/dL (60-110) H 11/21/17 07:11 - Allergies Allergies/Adverse Reactions: Allergies Allergy/AdvReac Type Severity Reaction Status Date / Time Iodinated Contrast- Oral and Allergy Nausea and Verified 10/23/17 22:57 IV Dye Vomiting Penicillins Allergy Swelling Verified 10/17/17 23:58 - Blood Blood Available: No - Anesthesia Plan Pre-Op Medication Ordered: None - Acknowledgements Anesthesia Type Planned: General Anesthesia Pt an Appropriate Candidate for the Planned Anesthesia: Yes Alternatives and Risks of Anesthesia Discussed w Pt/Guardian: Yes Pt/Guardian Understands and Agrees with Anesthesia Plan: Yes PreAnesthesia Questionnaire HEENT History: Reports: Other (See Below) Other HEENT History: wears glasses Cardiovascular History: Reports: High Cholesterol, Hypertension, NM Other Cardiovascular History: "high blood pressure in the past" Respiratory History: Reports: Asthma, PE, Sleep Apnea Other Respiratory History: anila PE following shoulder surgery, does not have CPAP at this time Gastrointestinal History: Reports: Cholelithiasis, GERD, Irritable Bowel Syndrome, Pancreatitis, Other (See Below) Other Gastrointestinal History: h/o diverticulitis (8 inches taken of left colon due to it) Genitourinary History: Reports: Renal Calculus Musculoskeletal History: Reports: Arthritis Neurological History: Reports: Concussion, Migraines Psychiatric History: Reports: Anxiety, Bipolar, Depression Endocrine/Metabolic History: Reports: Diabetes, Type II, Obesity/BMI 30+ Hematologic History: Reports: Blood Transfusion(s) Immunologic History: Reports: None Oncologic (Cancer) History: Reports: None Dermatologic History: Reports: None - Infectious Disease History Infectious Disease History: Reports: None - Past Surgical History Head Surgeries/Procedures: Reports: None HEENT Surgical History: Reports: Tonsillectomy GI Surgical History: Reports: Colon Other GI Surgeries/Procedures: Colon resection for ruptured diverticulitis Male Surgical History: Reports: None Endocrine Surgical History: Reports: None Musculoskeletal Surgical History: Reports: Arthroscopic Procedure, Knee Replacement, Shoulder Surgery, Other (See Below) Other Musculoskeletal Surgeries/Procedures:: anila knee replacement, rt shoulder replacement - SUBSTANCE USE Smoking Status *Q: Never Smoker Recreational Drug Use History: No - HOME MEDS Home Medications: Home Meds Insulin Aspart [NovoLOG] See Protocol SUBCUT TID #3 pen 09/08/17 [Rx] Insulin Glarg,Human.Rec.Analog [Lantus] 0 unit SUBCUT DAILY 10/06/17 [History] metFORMIN [Glucophage XR] 1 tab PO TID 10/17/17 [History] - CURRENT (IN HOUSE) MEDS Current Meds: Current Medications Lactated Ringer's (Ringers, Lactated) 1,000 mls @ 125 mls/hr IV ASDIRECTED BAYRON Discontinued Medications Bupivacaine HCl (Sensorcaine-Mpf 0.5%) Confirm Administered Dose 30 ml .ROUTE .STK-MED ONE Stop: 11/21/17 07:16 Cefazolin Sodium (Ancef) Confirm Administered Dose 1 gm .ROUTE .STK-MED ONE Stop: 11/21/17 07:15 Fentanyl (Sublimaze) Confirm Administered Dose 250 mcg .ROUTE .STK-MED ONE Stop: 11/21/17 07:17 Cefoxitin Sodium 2 gm/ Premix 50 mls @ 100 mls/hr IV ONETIME ONE Stop: 11/21/17 06:29 Lidocaine (Xylocaine-Mpf 2%) Confirm Administered Dose 5 ml .ROUTE .STK-MED ONE Stop: 11/21/17 07:16 Midazolam HCl (Versed 1 Mg/Ml) Confirm Administered Dose 2 mg .ROUTE .STK-MED ONE Stop: 11/21/17 07:17 Ondansetron HCl (Zofran) Confirm Administered Dose 4 mg .ROUTE .STK-MED ONE Stop: 11/21/17 07:16 Propofol (Diprivan 20 Ml) Confirm Administered Dose 200 mg .ROUTE .STK-MED ONE Stop: 11/21/17 07:17 Rocuronium [place] (Zemuron) Confirm Administered Dose 100 mg .ROUTE .STK-MED ONE Stop: 11/21/17 07:16
[2017-11-21] MEDS ORDERED: Succinylcholine 200 MG/10 ML MDV ONE (07:44)
[2017-11-21] MEDS ORDERED: Dexamethasone 4 MG/ML 5 ML MDV ONE (08:13)
[2017-11-21] MEDS ORDERED: diphenhydrAMINE 50 MG/ML SDV ONE (08:13)
[2017-11-21] MEDS ORDERED: HYDROmorphone 2 MG/ML SDV ONE (08:13)
[2017-11-21] MEDS ORDERED: Bupivacaine 0.5% 30 ML SDV ONE (08:52)
[2017-11-21] MEDS ORDERED: Glycopyrrolate 0.2 MG/ML SDV ONE (09:20)
[2017-11-21] MEDS ORDERED: Neostigmine Methylsulfate 1 MG/ML 5 ML Syringe ONE (09:20)
[2017-11-21] MEDS ORDERED: Morphine 4 MG/ML Syringe IVPUSH PRN (09:51)
--- NOTE | 2017-11-21 09:53 | PCM.OPNOTE ---
- General Post-Op/Procedure Note Date of Surgery/Procedure: 11/21/17 Operative Procedure(s): Laparoscopic cholecystectomy Pre Op Diagnosis: Chronic right upper quadrant pain. Abnormal hepatobiliary scan. Post-Op Diagnosis: Acute and chronic cholecystitis Anesthesia Technique: General ET Tube (ASA II) Primary Surgeon: Bruno Fernandes Fluid Replacement, Intraop: 1,900 Output, Urine Amount: 95 EBL in mLs: 20 Condition: Good Free Text/Narrative:: DICTATION 095312 CPT CODE 16813
[2017-11-21] MEDS ORDERED: Lactated Ringers 1,000 ML IV SCH (10:00)
[2017-11-21] MEDS ORDERED: Nalbuphine 10 MG/ML 10 ML MDV IVPUSH PRN (10:37)
[2017-11-21] MEDS ORDERED: Ketorolac 30 MG/ML SDV IVPUSH ONE (10:38)
[2017-11-21] MEDS ORDERED: Nalbuphine 10 MG/ML 10 ML MDV ONE (10:42)
--- NOTE | 2017-11-21 11:13 | PCM.POSTAN ---
POST ANESTHESIA ASSESSMENT - MENTAL STATUS Mental Status: Alert, Oriented - RESPIRATORY Respiratory Status: Respiratory Rate WNL, Airway Patent, O2 Saturation Stable, Supplemental Oxygen - CARDIOVASCULAR CV Status: Pulse Rate WNL, Blood Pressure Stable - GASTROINTESTINAL GI Status: No Symptoms - POST OP HYDRATION Hydration Status: Adequate & Stable - OBSERVATIONS Free Text/Narrative:: admit for 23 hr stay for suplimental oxygen and saturation and capnography monitoring for DAX. DAX Discharge instructions given to . refered to [employer] for new CPAP machine.
--- NOTE | 2017-11-21 13:33 | OR ---
SURGEON: Bruno Fernandes M.D. DATE OF PROCEDURE: 11/21/2017 OPERATION PERFORMED: Laparoscopic cholecystectomy. ANESTHESIA: General endotracheal. ASA CLASSIFICATION: II. PREOPERATIVE DIAGNOSES: 1. Chronic right upper quadrant pain. 2. Abnormal hepatobiliary scan. POSTOPERATIVE DIAGNOSES: 1. Acute on chronic cholecystitis. 2. Fatty food intolerance. ESTIMATED BLOOD LOSS: 20 mL. INTRAOPERATIVE FLUID REPLACEMENT: 1900 mL of crystalloid. INTRAOPERATIVE URINARY OUTPUT: 95 mL. DESCRIPTION OF PROCEDURE: The patient was taken to the operating room, placed on the operating table in the supine position. Time-out was called for appropriate identification of the patient and procedure. Thigh-high TEDs and sequential compression boots were placed. Following satisfactory attainment of general endotracheal anesthesia, a Dan catheter was placed in the patient's urinary bladder. The abdomen was then prepped with DuraPrep solution. Sterile drapes were applied. The patient had a long lower midline incision that did extend above the umbilicus and it was elected to place our first port in the right midclavicular position. Appropriate site for port placement was identified. The skin infiltrated with 0.5% Marcaine solution. The skin incision was then made. The Veress needle was introduced into the peritoneal cavity. Saline drop test was positive. Carbon dioxide pneumoperitoneum was established with the release set at 13 cm of water. Once we had a satisfactory pneumoperitoneum, 5-mm camera and port were placed through the midclavicular incision. The peritoneal cavity was then inspected. There were numerous adhesions to the midline. We were able to identify a spot just above the umbilicus into the right that was clear. The skin was again infiltrated with 0.5% Marcaine solution. The skin incision was again made and under camera vision, 5-mm port was placed just above and to the right of the umbilicus. The camera was now placed through that port and the patient rotated to the left and foot down position. Under camera vision, 12-mm subxiphoid and 5- mm anterior axillary ports were placed. Again, all were placed with the aid of visualization. The patient had multiple adhesions in the right upper quadrant. With all ports in place, we were able to gradually dissect the adhesions away and grasp the gallbladder. We did have to switch from a 0 degree scope to a 30 degree scope to complete the operation. Adhesions were very carefully taken down with a combination of blunt dissection and electrocautery. The cystic duct was able to be identified and good critical view obtained. Cystic duct was then hemoclipped and divided. Dissection was carried up along the gallbladder wall identifying the cystic artery, which was also hemoclipped and divided with the laparoscopic Metzenbaum scissor. The gallbladder was then dissected away from its bed. We did spill some bile, but the right upper quadrant was copiously irrigated with sterile saline solution. Once the gallbladder was amputated, this was placed in the pouch retrieval bag. This was left in situ and the gallbladder bed was again inspected for hemostasis. I did not see any significant bleeding and there was no bile leak. Surgicel was placed into the bed of the gallbladder. The right hemidiaphragm was irrigated with 250 mL of saline containing 20 mL of 0.5% Marcaine solution. That fluid was left in place. Under camera vision, the pouch containing gallbladder was removed through the subxiphoid incision. Under camera vision, all ports were removed. The wounds were inspected for hemostasis and bleeding sites were electrocoagulated. The subxiphoid incision was closed in 2 layers approximating the subcutaneous tissue with 3-0 Vicryl and the skin with subcuticular 4-0 Monocryl. The smaller incisions were closed with subcuticular 4-0 Monocryl. All incisions were Steri-Stripped and dressed with sterile Tegaderm pads. Sponge, needle, and instrument counts were all correct. The Dan catheter was removed prior to emergence from anesthesia. Following emergence from anesthesia and extubation, the patient was taken to recovery room in stable condition. LETITIA / NACHO /[id number]
[2017-11-21] MEDS ORDERED: metFORMIN 500 MG Tab PO SCH (14:09)
[2017-11-21] MEDS ORDERED: Insulin Aspart 100 Units/ML 3 ML Pen SUBCUT SCH (14:20)
[2017-11-21] MEDS: Insulin Glargine,Human Rec. Analog 100 Units/ML 3 ML Pen SUBCUT SCH (14:46)
--- NOTE | 2017-11-21 15:13 | PCM.SN ---
- Free Text/Narrative Note: Patient is awake and alert. Denies abdominal pain. No n/v. Wants to get out of bed. Hungry and wants to eat. Will keep him overnight secondary to his sleep apnea.
[2017-11-21] MEDS: Acetaminophen/HYDROcodone 325-5 MG Tab PO PRN ×2 (16:05→20:11)
[2017-11-21] MEDS: Insulin Aspart 100 Units/ML 3 ML Pen SUBCUT SCH (16:51)
[2017-11-21] MEDS ORDERED: Rosuvastatin 10 MG Tab PO SCH (21:00)
[2017-11-22] MEDS: Acetaminophen/HYDROcodone 325-5 MG Tab PO PRN ×3 (00:10→08:48)
[2017-11-22] MEDS: Insulin Aspart 100 Units/ML 3 ML Pen SUBCUT SCH (07:21)
--- NOTE | 2017-11-22 07:40 | PCM.SURGPN ---
- General Info Date of Service: 11/22/17 POD#: 1 Post-Op Diagnosis: Acute & chronic cholecystitis Functional Status: Reports: Pain Controlled, Tolerating Diet, Ambulating, Urinating, Incentive Spirometry - Review of Systems General: Denies: Fever, Weakness, Fatigue HEENT: Reports: No Symptoms Pulmonary: Denies: Shortness of Breath, Cough Cardiovascular: Reports: No Symptoms Gastrointestinal: Reports: Abdominal Pain (incisional), Flatus. Denies: Constipation, Decreased Appetite, Diarrhea, Difficulty Swallowing, Nausea, Vomiting Genitourinary: Reports: No Symptoms Musculoskeletal: Reports: No Symptoms Skin: Reports: No Symptoms Neurological: Reports: No Symptoms Psychiatric: Reports: No Symptoms - Patient Data Vitals - Most Recent: Last Vital Signs Temp 98.6 F 11/22/17 04:00 Pulse 66 11/21/17 11:22 Resp 18 11/22/17 07:00 BP 115/66 11/22/17 07:00 Pulse Ox 93 L 11/22/17 07:26 Weight - Most Recent: 267 lb I&O - Last 24 Hours: Intake & Output 11/21/17 11/22/17 11/22/17 19:59 03:59 11:59 Intake Total 1560 1450 Output Total 200 Balance 1360 1450 Lab Results Last 24 Hrs: Laboratory Results - last 24 hr 11/21/17 11/21/17 11/21/17 Range/Units 12:08 14:30 16:43 POC Glucose 279 H 263 H 303 H (60-110) mg/dL 11/21/17 11/22/17 Range/Units 21:00 07:18 POC Glucose 303 H 231 H (60-110) mg/dL Med Orders - Current: Current Medications Hydrocodone Bitart/Acetaminophen ([place] 325-5 Mg) 1 - 2 tab PO Q4H PRN PRN Reason: Pain (moderate 4-6) Last Admin: 11/22/17 04:51 Dose: 2 tab Lactated Ringer's (Ringers, Lactated) 1,000 mls @ 125 mls/hr IV ASDIRECTED [facility] Last Admin: 11/21/17 07:25 Dose: 125 mls/hr Lactated Ringer's (Ringers, Lactated) 1,000 mls @ 125 mls/hr IV ASDIRECTED [facility] Insulin Aspart (Novolog) 0 unit SUBCUT TIDMEALS [facility]; Protocol Last Admin: 11/22/17 07:21 Dose: 2 units Insulin Glargine (Lantus Solostar) 20 units SUBCUT DAILY [facility] Last Admin: 11/21/17 14:46 Dose: 20 units Metformin HCl (Glucophage) 500 mg PO BIDMEALS [facility] Last Admin: 11/22/17 07:21 Dose: 500 mg Morphine Sulfate (Morphine) 0 mg IVPUSH Q30M PRN PRN Reason: Pain Last Admin: 11/22/17 02:15 Dose: 4 mg Nalbuphine HCl (Nubain) 2.5 mg IVPUSH Q3H PRN PRN Reason: Itching Last Admin: 11/21/17 10:49 Dose: 2.5 mg Rosuvastatin Calcium (Crestor) 10 mg PO BEDTIME [facility] Last Admin: 11/21/17 20:13 Dose: 10 mg Scopolamine (Transderm-Scop) 1.5 mg TRDERM Q72H PRN PRN Reason: Nausea Last Admin: 11/21/17 07:27 Dose: 1.5 mg Discontinued Medications Bupivacaine HCl (Sensorcaine-Mpf 0.5%) Confirm Administered Dose 30 ml .ROUTE .STK-MED ONE Stop: 11/21/17 07:16 Bupivacaine HCl (Marcaine 0.5%) Confirm Administered Dose 120 ml .ROUTE .STK- MED ONE Stop: 11/21/17 08:53 Cefazolin Sodium (Ancef) Confirm Administered Dose 1 gm .ROUTE .STK-MED ONE Stop: 11/21/17 07:15 Dexamethasone (Dexamethasone) Confirm Administered Dose 20 mg .ROUTE .STK-MED ONE Stop: 11/21/17 08:14 Diphenhydramine HCl (Benadryl) Confirm Administered Dose 50 mg .ROUTE .STK-MED ONE Stop: 11/21/17 08:14 Fentanyl (Sublimaze) Confirm Administered Dose 250 mcg .ROUTE .STK-MED ONE Stop: 11/21/17 07:17 Fentanyl (Sublimaze) Confirm Administered Dose 250 mcg .ROUTE .STK-MED ONE Stop: 11/21/17 08:42 Glycopyrrolate (Robinul) Confirm Administered Dose 0.6 mg .ROUTE .STK-MED ONE Stop: 11/21/17 09:21 Hydromorphone HCl (Dilaudid) Confirm Administered Dose 2 mg .ROUTE .STK-MED ONE Stop: 11/21/17 08:14 Cefoxitin Sodium 2 gm/ Premix 50 mls @ 100 mls/hr IV ONETIME ONE Stop: 11/21/17 06:29 Last Admin: 11/21/17 11:55 Dose: Not Given Acetaminophen (Ofirmev) Confirm Administered Dose 100 mls @ as directed IV .STK- MED ONE Stop: 11/21/17 07:23 Cefoxitin Sodium (Mefoxin In Dextrose,Iso-Osm 2 Gm/50 Ml) Confirm Administered Dose 50 mls @ as directed .ROUTE .STK-MED ONE Stop: 11/21/17 08:14 Insulin Aspart (Novolog) 1 unit SUBCUT TID [facility]; Protocol Last Admin: 11/21/17 14:45 Dose: 3 units Ketorolac Tromethamine (Toradol) 30 mg IVPUSH ONETIME ONE Stop: 11/21/17 10:39 Last Admin: 11/21/17 10:55 Dose: 30 mg Lidocaine (Xylocaine-Mpf 2%) Confirm Administered Dose 5 ml .ROUTE .STK-MED ONE Stop: 11/21/17 07:16 Metformin HCl (Glucophage) 500 mg PO BIDMEALS [facility] Last Admin: 11/21/17 14:45 Dose: 500 mg Midazolam HCl (Versed 1 Mg/Ml) Confirm Administered Dose 2 mg .ROUTE .STK-MED ONE Stop: 11/21/17 07:17 Nalbuphine HCl (Nubain) Confirm Administered Dose 100 mg .ROUTE .STK-MED ONE Stop: 11/21/17 10:43 Last Admin: 11/21/17 11:55 Dose: Not Given Neostigmine Methylsulfate (Neostigmine) Confirm Administered Dose 5 mg .ROUTE .STK-MED ONE Stop: 11/21/17 09:21 Ondansetron HCl (Zofran) Confirm Administered Dose 4 mg .ROUTE .STK-MED ONE Stop: 11/21/17 07:16 Propofol (Diprivan 20 Ml) Confirm Administered Dose 200 mg .ROUTE .STK-MED ONE Stop: 11/21/17 07:17 Rocuronium [place] (Zemuron) Confirm Administered Dose 100 mg .ROUTE .STK-MED ONE Stop: 11/21/17 07:16 Succinylcholine Chloride (Quelicin) Confirm Administered Dose 200 mg .ROUTE .STK -MED ONE Stop: 11/21/17 07:45 - Exam Wound/Incisions: Dressing Dry and Intact, No Drainage General: Alert, Oriented, Cooperative, No Acute Distress HEENT: Pupils Equal, Pupils Reactive. No: Scleral Icterus Neck: Supple Lungs: Clear to Auscultation, Normal Respiratory Effort Cardiovascular: Regular Rate, Regular Rhythm GI/Abdominal Exam: Normal Bowel Sounds, Soft, Non-Tender Extremities: Normal Inspection Skin: Warm, Dry, Intact Neurological: No New Focal Deficit Psy/Mental Status: Alert, Normal Affect, Normal Mood - Problem List & Annotations (1) Cholecystitis without calculus SNOMED Code(s): 35355821 Code(s): K81.9 - CHOLECYSTITIS, UNSPECIFIED Status: Acute Priority: High Current Visit: Yes - Problem List Review Problem List Initiated/Reviewed/Updated: Yes - My Orders Last 24 Hours: Active Orders 24 hr Category Date Time Status Admission Status [Patient Status] [ADT] Routine ADT 11/21/17 11:40 Active Capnography Monitoring [RT End Tidal CO2 Monitoring] [ Care 11/21/17 10:39 Active RC] CONTINUOUS Overnight Pulse Oximetry [RC] CONTINUOUS Care 11/21/17 10:38 Active Oxygen Therapy [RC] PRN Care 11/21/17 09:51 Active Ready for Discharge [RC] PER UNIT ROUTINE Care 11/21/17 09:55 Active Up ad Mildred [RC] PER UNIT ROUTINE Care 11/21/17 09:51 Active Vital Signs [RC] Q1H Care 11/21/17 09:51 Active Low Fat Diet [DIET] Diet 11/21/17 Dinner Active Acetaminophen/HYDROcodone [[place] 325-5 MG] Med 11/21/17 09:51 Active 1 - 2 tab PO Q4H PRN Insulin Aspart [NovoLOG] Med 11/21/17 17:30 Active 0 unit SUBCUT TIDMEALS Insulin Glarg,Human.Rec.Analog [LantUS Solostar] Med 11/21/17 14:15 Active 20 units SUBCUT DAILY Lactated Ringers [Ringers, Lactated] 1,000 ml Med 11/21/17 10:00 Active IV ASDIRECTED Morphine Med 11/21/17 09:51 Active See Dose Instructions IVPUSH Q30M PRN Nalbuphine [Nubain] Med 11/21/17 10:37 Active 2.5 mg IVPUSH Q3H PRN Rosuvastatin [Crestor] Med 11/21/17 21:00 Active 10 mg PO BEDTIME Scopolamine [Transderm-Scop] Med 11/21/17 07:20 Active 1.5 mg TRDERM Q72H PRN metFORMIN [Glucophage] Med 11/22/17 08:00 Active 500 mg PO BIDMEALS Pulse Oximetry Continuous Monitoring [OM.PC] Routine Oth 11/21/17 10:38 Ordered Sequential Compression Device [OM.PC] Routine Oth 11/21/17 09:51 Ordered Medication Orders Hydrocodone Bitart/Acetaminophen ([place] 325-5 Mg) 1 - 2 tab PO Q4H PRN PRN Reason: Pain (moderate 4-6) Last Admin: 11/22/17 04:51 Dose: 2 tab Admin: 11/22/17 00:10 Dose: 2 tab Admin: 11/21/17 20:11 Dose: 2 tab Admin: 11/21/17 16:05 Dose: 2 tab Lactated Ringer's (Ringers, Lactated) 1,000 mls @ 125 mls/hr IV ASDIRECTED B[place] Last Admin: 11/21/17 07:25 Dose: 125 mls/hr Lactated Ringer's (Ringers, Lactated) 1,000 mls @ 125 mls/hr IV ASDIRECTED [facility] Insulin Aspart (Novolog) 0 unit SUBCUT TIDMEALS [facility]; Protocol Last Admin: 11/22/17 07:21 Dose: 2 units Admin: 11/21/17 16:51 Dose: 4 units Insulin Glargine (Lantus Solostar) 20 units SUBCUT DAILY [facility] Last Admin: 11/21/17 14:46 Dose: 20 units Metformin HCl (Glucophage) 500 mg PO BIDMEALS [facility] Last Admin: 11/22/17 07:21 Dose: 500 mg Morphine Sulfate (Morphine) 0 mg IVPUSH Q30M PRN PRN Reason: Pain Last Admin: 11/22/17 02:15 Dose: 4 mg Nalbuphine HCl (Nubain) 2.5 mg IVPUSH Q3H PRN PRN Reason: Itching Last Admin: 11/21/17 10:49 Dose: 2.5 mg Rosuvastatin Calcium (Crestor) 10 mg PO BEDTIME [place] Last Admin: 11/21/17 20:13 Dose: 10 mg Scopolamine (Transderm-Scop) 1.5 mg TRDERM Q72H PRN PRN Reason: Nausea Last Admin: 11/21/17 07:27 Dose: 1.5 mg - Assessment Assessment (Free Text/Narrative):: Good night. Pain controlled. Tolerating po low fat, diabetic diet. - Plan Plan (Free Text/Narrative):: Home today. Clinic 12/01. [facility] for pain. Resume diabetic regimen and stay on low fat diet. 25# lifting restriction for the next 6 weeks.
[2017-11-22] MEDS ORDERED: metFORMIN 500 MG Tab PO SCH (08:00)
[2017-11-22] MEDS: Insulin Glargine,Human Rec. Analog 100 Units/ML 3 ML Pen SUBCUT SCH (08:03)
== END 2017-11-22 09:10 | disposition home or self-care (01) ==
LOC: MW.SDS 06:37 → MW.ICU 12:08
PROVIDERS: ADMIT Surgery; ATTEND Surgery
DX: K81.1 Chronic cholecystitis (principal); K82.8 Other specified diseases of gallbladder; K91.2 Postsurgical malabsorption, not elsewhere classified; I10 Essential (primary) hypertension; J45.909 Unspecified asthma, uncomplicated; E11.9 Type 2 diabetes mellitus without complications; Z79.4 Long term (current) use of insulin; E66.9 Obesity, unspecified; Z68.36 Body mass index [BMI] 36.0-36.9, adult; K21.9 Gastro-esophageal reflux disease without esophagitis; F31.9 Bipolar disorder, unspecified; F41.9 Anxiety disorder, unspecified; E78.00 Pure hypercholesterolemia, unspecified; K58.9 Irritable bowel syndrome, unspecified; G47.30 Sleep apnea, unspecified; Z88.0 Allergy status to penicillin; Z91.041 Radiographic dye allergy status; Z91.048 Other nonmedicinal substance allergy status; Z79.899 Other long term (current) drug therapy
CPT/HCPCS: 47562; 82962; 88304; A9270; G0378; J0330; J1100; J1170; J1200; J1815; J1885; J2250; J2270; J2300; J2405; J3010; J7120; J0690; J2704

== ENCOUNTER 2017-12-08 04:06 | Observation (INO) | payer MEDICARE, OTHER ==
[2017-12-08] MEDS ORDERED: Aspirin 81 MG Tab.Chew PO ONE (04:14)
[2017-12-08] MEDS: Nitroglycerin 0.4 MG Tab.SL SL PRN ×3 (04:29→04:41)
[2017-12-08 04:51] LABS: CHLORIDE,CL 100 mmol/L (98-107); SODIUM,NA 135 mmol/L (136-148)
--- NOTE | 2017-12-08 05:13 | EDM.PDOC ---
ED HPI GENERAL MEDICAL PROBLEM - General Chief Complaint: Chest Pain Stated Complaint: SHORTNESS OF BREATH Time Seen by Provider: 12/08/17 05:09 - History of Present Illness INITIAL COMMENTS - FREE TEXT/NARRATIVE: HISTORY AND PHYSICAL: History of present illness: Patient's 42-year-old white male presents with concern of chest pain is vaguely described states he's had 1 week tonight he developed diaphoresis and shortness of breath with this is no associated palpitations he denies prior [place] denies other concern Review of systems: As per history of present illness and below otherwise all systems reviewed and negative. Past medical history: As per history of present illness and as reviewed below otherwise noncontributory. Surgical history: As per history of present illness and as reviewed below otherwise noncontributory. Social history: No reported history of drug or alcohol abuse. Family history: As per history of present illness and as reviewed below otherwise noncontributory. Physical exam: HEENT: Atraumatic, normocephalic, pupils reactive, negative for conjunctival pallor or scleral icterus, mucous membranes moist, throat clear, neck supple, nontender, trachea midline. Lungs: Clear to auscultation, breath sounds equal bilaterally, chest nontender. Heart: S1S2, regular, negative for clicks, rubs, or JVD. Abdomen: Soft, nondistended, nontender. Negative for masses or hepatosplenomegaly. Negative for costovertebral tenderness. Pelvis: Stable nontender. Genitourinary: Deferred. Rectal: Deferred. Extremities: Atraumatic, negative for cords or calf pain. Neurovascular unremarkable. Neuro: Awake, alert, oriented. Cranial nerves II through XII unremarkable. Cerebellum unremarkable. Motor and sensory unremarkable throughout. Exam nonfocal. Diagnostics: CBC CMP troponin PT/INR chest x-ray EKG Therapeutics: IV O2 monitor aspirin 324 mg nitroglycerin Impression: #1 chest pain Definitive disposition and diagnosis as appropriate pending reevaluation and review of above. chest Pain Score (Numeric/FACES): 10 - Related Data Allergies Allergy/AdvReac Type Severity Reaction Status Date / Time Iodinated Contrast- Oral and Allergy Nausea and Verified 12/08/17 04:18 IV Dye Vomiting Penicillins Allergy Swelling Verified 12/08/17 04:18 Home Meds: Home Meds Insulin Aspart [NovoLOG] See Protocol SUBCUT TID #3 pen 09/08/17 [Rx] Insulin Glarg,Human.Rec.Analog [Lantus] 0 unit SUBCUT DAILY 10/06/17 [History] metFORMIN [Glucophage XR] 0 mg PO BID 10/17/17 [History] Rosuvastatin Calcium 0 mg PO DAILY 11/21/17 [History] Past Medical History HEENT History: Reports: Other (See Below) Other HEENT History: wears glasses Cardiovascular History: Reports: High Cholesterol, Heart Failure, Hypertension, [place] Other Cardiovascular History: "high blood pressure in the past" "Me and everyone in my family have heart failure" Respiratory History: Reports: Asthma, PE, Sleep Apnea Other Respiratory History: anila PE following shoulder surgery, does not have CPAP at this time Gastrointestinal History: Reports: Cholelithiasis, GERD, Irritable Bowel Syndrome, Other (See Below), Pancreatitis Other Gastrointestinal History: h/o diverticulitis (8 inches taken of left colon due to it) Genitourinary History: Reports: Renal Calculus Musculoskeletal History: Reports: Arthritis Neurological History: Reports: Concussion, Migraines Psychiatric History: Reports: Anxiety, Bipolar, Depression Endocrine/Metabolic History: Reports: Diabetes, Type II, Obesity/BMI 30+ Hematologic History: Reports: Blood Transfusion(s) Immunologic History: Reports: None Oncologic (Cancer) History: Reports: None Dermatologic History: Reports: None - Infectious Disease History Infectious Disease History: Reports: None - Past Surgical History HEENT Surgical History: Reports: Tonsillectomy GI Surgical History: Reports: Cholecystectomy Musculoskeletal Surgical History: Reports: Arthroscopic Procedure, Knee Replacement, Other (See Below), Shoulder Surgery Social & Family History - Family History Family Medical History: Noncontributory Cardiac: Reports: CAD, Hypertension Neurological: Reports: CVA Endocrine/Metabolic: Reports: Diabetes, type II Oncologic: Reports: Breast, Colon, Leukemia - Tobacco Use Smoking Status *Q: Never Smoker - Caffeine Use Caffeine Use: Reports: None - Recreational Drug Use Recreational Drug Use: No ED ROS GENERAL - Review of Systems Review Of Systems: ROS reveals no pertinent complaints other than HPI. ED EXAM, GENERAL - Physical Exam Exam: See Below Course - Vital Signs Last Recorded V/S: Last Vital Signs Temp 36.1 C 12/08/17 04:06 Pulse 96 12/08/17 04:53 Resp 12 12/08/17 04:53 BP 118/68 12/08/17 04:53 Pulse Ox 95 12/08/17 04:53 - Orders/Labs/Meds Orders: Active Orders 24 hr Category Date Time Status EKG 12 Lead [EKG Documentation Completion] [RC] STAT Care 12/08/17 04:12 Active Chest 2V [CR] Stat Exams 12/08/17 04:14 Taken Labs: Laboratory Tests 12/08/17 12/08/17 12/08/17 Range/Units 04:18 04:18 04:18 WBC 7.49 (4.0-11.0) K/uL RBC 4.97 (4.50-5.90) M/uL Hgb 15.8 (13.0-17.0) g/dL Hct 43.5 (38.0-50.0) % MCV 87.5 (80.0-98.0) fL MCH 31.8 (27.0-32.0) pg MCHC 36.3 (31.0-37.0) g/dL RDW Std Deviation 40.4 (28.0-62.0) fl RDW Coeff of Torsten 13 (11.0-15.0) % Plt Count 172 (150-400) K/uL MPV 10.50 (7.40-12.00) fL Neut % (Auto) 48.3 (48.0-80.0) % Lymph % (Auto) 37.5 (16.0-40.0) % [place] % (Auto) 11.1 (0.0-15.0) % Eos % (Auto) 2.4 (0.0-7.0) % Baso % (Auto) 0.7 (0.0-1.5) % Neut # (Auto) 3.6 (1.4-5.7) K/uL Lymph # (Auto) 2.8 H (0.6-2.4) K/uL [place] # (Auto) 0.8 (0.0-0.8) K/uL Eos # (Auto) 0.2 (0.0-0.7) K/uL Baso # (Auto) 0.1 (0.0-0.1) K/uL Nucleated RBC % 0.0 /100WBC Nucleated RBCs # 0 K/uL INR 1.01 Sodium 135 L (136-148) mmol/L Potassium 3.6 (3.5-5.1) mmol/L Chloride 100 (98-107) mmol/L Carbon Dioxide 24.1 (21.0-32.0) mmol/L BUN 9 (7.0-18.0) mg/dL Creatinine 1.0 (0.8-1.3) mg/dL Est Cr Clr Drug Dosing 103.47 mL/min Estimated GFR (MDRD) > 60.0 ml/min Glucose 263 H (74-106) mg/dL Calcium 8.9 (8.5-10.1) mg/dL Total Bilirubin 0.5 (0.2-1.0) mg/dL AST 30 (15-37) IU/L ALT 37 (14-63) IU/L Alkaline Phosphatase 139 H (46-116) U/L Troponin I < 0.050 (0.000-0.056) ng/mL Total Protein 7.5 (6.4-8.2) g/dL Albumin 3.3 L (3.4-5.0) g/dL Globulin 4.2 H (2.0-3.5) g/dL Albumin/Globulin Ratio 0.8 L (1.3-2.8) Meds: Medications Discontinued Medications Generic Name Dose Route Start Last Admin Trade Name Freq PRN Reason Stop Dose Admin Aspirin 324 mg 12/08/17 04:14 12/08/17 04:22 Aspirin PO 12/08/17 04:15 324 mg ONETIME ONE Administration Nitroglycerin 0.4 mg 12/08/17 04:26 12/08/17 04:41 Nitrostat SL 0.4 mg Q5M PRN Administration Chest Pain Departure - Departure Time of Disposition: 05:12 Disposition: Home, Self-Care 01 Condition: Good Clinical Impression: Chest pain - Discharge Information - My Orders Last 24 Hours: My Active Orders 12/08/17 04:12 EKG 12 Lead [EKG Documentation Completion] [RC] STAT 12/08/17 04:14 Chest 2V [CR] Stat - Assessment/Plan Last 24 Hours: My Active Orders 12/08/17 04:12 EKG 12 Lead [EKG Documentation Completion] [RC] STAT 12/08/17 04:14 Chest 2V [CR] Stat
[2017-12-08] MEDS ORDERED: Acetaminophen 325 MG Tab PO PRN (06:48)
[2017-12-08] MEDS: Morphine 2 MG/ML Syringe IVPUSH PRN ×2 (07:02→11:15)
[2017-12-08] MEDS ORDERED: Ondansetron 4 MG/2 ML SDV IVPUSH PRN (07:54)
[2017-12-08] MEDS: Insulin Aspart 100 Units/ML 3 ML Pen SUBCUT SCH ×2 (08:53→11:36)
[2017-12-08] MEDS ORDERED: Pantoprazole 40 MG Vial IVPUSH ONE (10:35)
[2017-12-08] MEDS ORDERED: Alum Hydrox/Mag Hydrox/Simeth 15 ML, Lidocaine 2% 5 ML PO ONE ×2 (10:35)
--- NOTE | 2017-12-08 10:42 | PCM.HP ---
H&P History of Present Illness - General Date of Service: 12/08/17 Admit Problem/Dx: Admission Diagnosis/Problem Admission Diagnosis/Problem Chest pain Source of Information: Patient, Old Records (Cholecystectomy and ED records) History Limitations: Reports: No Limitations - History of Present Illness Initial Comments - Free Text/Narative: This 42 year old male with pmh of HTN, uncontrolled DM, recent cholecystectomy, and hx of pancreatitis presented to the ED last evening with complaints of diaphoresis, chest pain and shortness of breath after he started vomiting last evening. He reports he has been vomiting and not keep much down since his gallbladder was removed. He started vomiting last night and started feeling very hot and sweaty. He reports he then walked a couple miles to the hospital and threw up the entire way here. When he got near the hospital he started having the chest pain which was midsternal and radiates across his whole chest and sometimes down his left arm. He reports some shortness of breath with this episode as well. He denies abdominal pain or constipation. Having more diarrhea recently since surgery. Incisions appear good per his reports. No fevers or chills at home. No black or bloody BMs. He reports his BS have been elevated up to 400s and then he starts having low blood sugar feelings when his BS drops to 180. He does report family history of CAD, father had first [place] in his 40s, and triple bypass in his 50s, along with DM and gallbladder issues. He denies tobacco use, drinks occassionally, last drink ws November 09. No recreational drug use. In the ED, CBC WNL, glucose 263, Troponin negative. alk phose 139. CXR negative. VS stable. no tachycardia or hypoxia noted. He was treated with ASA and Nitro x 3 with no real improvement with pain. EKG SR with no acute ischemic changes. He was admitted for chest pain rule out ACS. PCP, ELAINE Carlin chest Pain Score (Numeric/FACES): 9 - Related Data Allergies/Adverse Reactions: Allergies Allergy/AdvReac Type Severity Reaction Status Date / Time Iodinated Contrast- Oral and Allergy Nausea and Verified 12/08/17 05:45 IV Dye Vomiting Penicillins Allergy Swelling Verified 12/08/17 05:45 Home Medications: Home Meds Insulin Aspart [NovoLOG] See Protocol SUBCUT TID #3 pen 09/08/17 [Rx] Insulin Glarg,Human.Rec.Analog [Lantus] 0 unit SUBCUT DAILY 10/06/17 [History] metFORMIN [Glucophage XR] 0 mg PO BID 10/17/17 [History] Rosuvastatin Calcium 0 mg PO DAILY 11/21/17 [History] Acetaminophen [Tylenol] 650 mg PO Q4H PRN tablet 12/08/17 [Rx] Past Medical History HEENT History: Reports: Other (See Below) Other HEENT History: wears glasses Cardiovascular History: Reports: High Cholesterol, Hypertension, [place] (reports he has been told he had an [place], stress test was approximately 1 year ago in [place]). Denies: Afib, Blood Clots/VTE/DVT Respiratory History: Reports: Asthma, PE (Post-operatively in February 2016 was on Coumadin for 3 months.), Sleep Apnea (not using CPAP) Gastrointestinal History: Reports: Cholelithiasis, GERD, Inflammatory Bowel Disease (Diverticulitis, colectomy), Pancreatitis Genitourinary History: Reports: Renal Calculus Musculoskeletal History: Reports: Arthritis Neurological History: Reports: Concussion, Migraines. Denies: CVA, TIA Psychiatric History: Reports: Anxiety, Bipolar, Depression Endocrine/Metabolic History: Reports: Diabetes, Type II, Obesity/BMI 30+ Hematologic History: Reports: Blood Transfusion(s) Immunologic History: Reports: None Oncologic (Cancer) History: Reports: None Dermatologic History: Reports: None - Infectious Disease History Infectious Disease History: Reports: None - Past Surgical History HEENT Surgical History: Reports: Tonsillectomy GI Surgical History: Reports: Cholecystectomy, Colon, Colonoscopy, EGD Musculoskeletal Surgical History: Reports: Arthroscopic Procedure, Knee Replacement, Other (See Below), Shoulder Surgery Social & Family History - Family History Cardiac: Reports: CAD, Heart Failure, Hypertension, [place] (father and his father's family, age 40 with MIs.) Neurological: Reports: CVA Endocrine/Metabolic: Reports: Diabetes, type II Oncologic: Reports: Breast, Colon, Leukemia - Tobacco Use Smoking Status *Q: Never Smoker - Caffeine Use Caffeine Use: Reports: None - Recreational Drug Use Recreational Drug Use: No H&P Review of Systems - Review of Systems: Review Of Systems: See Below General: Reports: Decreased Appetite (since galbladder removal). Denies: Fever , Chills, Malaise, Weakness HEENT: Reports: No Symptoms. Denies: Hearing Changes, Sinus Congestion Pulmonary: Reports: No Symptoms. Denies: Shortness of Breath, Cough, Sputum Cardiovascular: Reports: Chest Pain (all across chest). Denies: Palpitations, Dyspnea on Exertion, Edema, Lightheadedness, Syncope Gastrointestinal: Reports: Diarrhea, Nausea, Vomiting (has not vomited since coming to ED, ate breakfast this morning ). Denies: Abdominal Pain, Black Stool , Bloody Stool Genitourinary: Reports: No Symptoms Skin: Reports: No Symptoms Psychiatric: Reports: No Symptoms Neurological: Reports: No Symptoms Hematologic/Lymphatic: Reports: No Symptoms Immunologic: Reports: No Symptoms Exam - Exam Exam: See Below - Vital Signs Vital Signs: Last Vital Signs Temp 97.8 F 12/08/17 07:54 Pulse 81 12/08/17 07:54 Resp 17 12/08/17 07:54 BP 134/81 12/08/17 07:54 Pulse Ox 94 L 12/08/17 07:54 Weight: 118.75 kg - Exam General: Alert, Oriented, Cooperative HEENT: Conjunctiva Clear, Mucosa Moist & [place], Posterior Pharynx Clear Neck: Supple, Trachea Midline Lungs: Clear to Auscultation, Normal Respiratory Effort Cardiovascular: Regular Rate, Regular Rhythm, Normal S1, Normal S2, Other ( chest tenderness to palpation all across chest and anterior neck, reports this reproduces the pain he was having. ). No: Tachycardia, Systolic Murmur GI/Abdominal Exam: Normal Bowel Sounds, Soft, Non-Tender, Other (lap sites healing well, no erythema noted or drainage) Back Exam: Normal Inspection, Full Range of Motion Extremities: Normal Inspection, Normal Range of Motion, Non-Tender, No Pedal Edema Neuro Extensive - Mental Status: Alert, Oriented x3 Neuro Extensive - Motor, Sensory, Reflexes: CN II-XII Intact Psychiatric: Alert, Normal Affect, Normal Mood - Patient Data Lab Results Last 24 hrs: Laboratory Results - last 24 hr 12/08/17 12/08/17 12/08/17 Range/Units 04:18 04:18 04:18 WBC 7.49 (4.0-11.0) K/uL RBC 4.97 (4.50-5.90) M/uL Hgb 15.8 (13.0-17.0) g/dL Hct 43.5 (38.0-50.0) % MCV 87.5 (80.0-98.0) fL MCH 31.8 (27.0-32.0) pg MCHC 36.3 (31.0-37.0) g/dL RDW Std Deviation 40.4 (28.0-62.0) fl RDW Coeff of Torsten 13 (11.0-15.0) % Plt Count 172 (150-400) K/uL MPV 10.50 (7.40-12.00) fL Neut % (Auto) 48.3 (48.0-80.0) % Lymph % (Auto) 37.5 (16.0-40.0) % [place] % (Auto) 11.1 (0.0-15.0) % Eos % (Auto) 2.4 (0.0-7.0) % Baso % (Auto) 0.7 (0.0-1.5) % Neut # (Auto) 3.6 (1.4-5.7) K/uL Lymph # (Auto) 2.8 H (0.6-2.4) K/uL [place] # (Auto) 0.8 (0.0-0.8) K/uL Eos # (Auto) 0.2 (0.0-0.7) K/uL Baso # (Auto) 0.1 (0.0-0.1) K/uL Nucleated RBC % 0.0 /100WBC Nucleated RBCs # 0 K/uL INR 1.01 Sodium 135 L (136-148) mmol/L Potassium 3.6 (3.5-5.1) mmol/L Chloride 100 (98-107) mmol/L Carbon Dioxide 24.1 (21.0-32.0) mmol/L BUN 9 (7.0-18.0) mg/dL Creatinine 1.0 (0.8-1.3) mg/dL Est Cr Clr Drug Dosing 103.47 mL/min Estimated GFR (MDRD) > 60.0 ml/min Glucose 263 H (74-106) mg/dL Calcium 8.9 (8.5-10.1) mg/dL Total Bilirubin 0.5 (0.2-1.0) mg/dL AST 30 (15-37) IU/L ALT 37 (14-63) IU/L Alkaline Phosphatase 139 H (46-116) U/L Troponin I < 0.050 (0.000-0.056) ng/mL Total Protein 7.5 (6.4-8.2) g/dL Albumin 3.3 L (3.4-5.0) g/dL Globulin 4.2 H (2.0-3.5) g/dL Albumin/Globulin Ratio 0.8 L (1.3-2.8) Result Diagrams: 12/08/17 04:18 12/08/17 04:18 EKG INTERPRETATION EKG Date: 12/08/17 Rhythm: NSR Rate (Beats/Min): 93 P-Wave: Present QRS: Normal ST-T: Normal QT: Normal *Q Meaningful Use (ADM) - VTE Risk Assess *Q Each Risk Factor Represents 1 Point: Age 41 - 59 years, Obesity ( BMI > 25 kg/m2 ) Total Score 1 Point Risk Factors: 2 Each Risk Factor Represents 2 Points: None Total Score 2 Point Risk Factors: 0 Each Risk Factor Represents 3 Points: None Total Score 3 Point Risk Factors: 0 Each Risk Factor Represents 5 Points: None Total Score 5 Point Risk Factors: 0 Venous Thromboembolism Risk Factor Score *Q: 2 - Problem List (1) Atypical chest pain SNOMED Code(s): 287743665 ICD Code: R07.89 - OTHER CHEST PAIN Status: Acute Current Visit: Yes (2) Nausea & vomiting SNOMED Code(s): 40716281 ICD Code: R11.2 - NAUSEA WITH VOMITING, UNSPECIFIED Status: Acute Current Visit: Yes Qualifiers: Vomiting type: unspecified Vomiting Intractability: non-intractable Qualified Code(s): R11.2 - Nausea with vomiting, unspecified (3) Hx of pancreatitis SNOMED Code(s): 58594886303822 ICD Code: Z87.19 - PERSONAL HISTORY OF OTHER DISEASES OF THE DIGESTIVE SYSTEM Status: Chronic Current Visit: Yes (4) Diabetes type 2, uncontrolled SNOMED Code(s): 98183906, 322777209 ICD Code: E11.65 - TYPE 2 DIABETES MELLITUS WITH HYPERGLYCEMIA Status: Chronic Current Visit: Yes Qualifiers: Diabetes mellitus fci insulin use: with fci use Diabetes mellitus complication status: with hyperglycemia Qualified Code(s): E11.65 - Type 2 diabetes mellitus with hyperglycemia; Z79.4 - bed bug exterminator (current) use of insulin (5) HTN (hypertension) SNOMED Code(s): 40288281 ICD Code: I10 - ESSENTIAL (PRIMARY) HYPERTENSION Status: Chronic Current Visit: Yes Qualifiers: Hypertension type: essential hypertension Qualified Code(s): I10 - Essential (primary) hypertension (6) HLD (hyperlipidemia) SNOMED Code(s): 97671428 ICD Code: E78.5 - HYPERLIPIDEMIA, UNSPECIFIED Status: Chronic Current Visit: Yes (7) Hx of cholecystectomy SNOMED Code(s): 239469863, 657961262 ICD Code: Z90.49 - ACQUIRED ABSENCE OF OTHER SPECIFIED PARTS OF DIGESTIVE TRACT Status: Chronic Current Visit: Yes (8) Dyslipidemia SNOMED Code(s): 023477828 ICD Code: E78.5 - HYPERLIPIDEMIA, UNSPECIFIED Status: Acute Current Visit : No Problem List Initiated/Reviewed/Updated: Yes Orders Last 24hrs: Active Orders 24 hr Category Date Time Status Patient Status [ADT] Stat ADT 12/08/17 05:13 Active Blood Glucose Check, Bedside [RC] TIDAC Care 12/08/17 07:53 Active EKG 12 Lead [EKG Documentation Completion] [RC] STAT Care 12/08/17 04:12 Active Intake and Output [RC] QSHIFT Care 12/08/17 07:54 Active Oxygen Therapy [RC] PRN Care 12/08/17 07:54 Active Telemetry Monitoring [Cardiac Monitoring] [RC] . Care 12/08/17 06:00 Active DIRECTED Up ad Mildred [RC] ASDIRECTED Care 12/08/17 07:54 Active VTE/DVT Education [RC] PER UNIT ROUTINE Care 12/08/17 07:54 Active Vital Signs [RC] Q4H Care 12/08/17 07:54 Active Heart Healthy Diet [DIET] Diet 12/08/17 Breakfast Active Chest 2V [CR] Stat Exams 12/08/17 04:14 Taken TROPONIN I [CHEM] Q6H Lab 12/08/17 09:53 Received TROPONIN I [CHEM] Q6H Lab 12/08/17 16:00 Ordered Acetaminophen [Tylenol] Med 12/08/17 06:48 Active 650 mg PO Q4H PRN GI Cocktail 20 ML PO x 1 Med 12/08/17 10:35 Ordered Alum Hydrox/Mag Hydrox/Simeth [Mag-Al Plus] 15 ml Lidocaine 2% [Xylocaine 2% Viscous] 5 ml PO ONETIME Insulin Aspart [NovoLOG] Med 12/08/17 07:53 Active See Protocol SUBCUT TIDAC Morphine Med 12/08/17 06:47 Active 2 mg IVPUSH Q3H PRN Ondansetron [Zofran] Med 12/08/17 07:54 Active 4 mg IVPUSH Q4H PRN Pantoprazole [ProTONIX IV] Med 12/08/17 10:35 Once 40 mg IVPUSH NOW ONE Resuscitation Status Routine Resus Stat 12/08/17 07:54 Ordered Medication Orders Acetaminophen (Tylenol) 650 mg PO Q4H PRN PRN Reason: Pain Al Hydroxide/Mg Hydroxide 15 (ml/ Lidocaine HCl 5 ml) 0 ml PO ONETIME ONE Stop: 12/08/17 10:36 Insulin Aspart (Novolog) 0 unit SUBCUT TIDAC [place]; Protocol Last Admin: 12/08/17 08:53 Dose: 4 units Morphine Sulfate (Morphine) 2 mg IVPUSH Q3H PRN PRN Reason: Pain Last Admin: 12/08/17 07:02 Dose: 2 mg Ondansetron HCl (Zofran) 4 mg IVPUSH Q4H PRN PRN Reason: Nausea Assessment/Plan Comment:: This 42 year old male admitted with atypical chest pain following multiple episodes of vomiting 1. Atypical chest pain: Monitor on telemetry. Trend troponins. reports history of [place] in past, but denies stenting. Will try obtain records from [place], [place]. Schedule to see Dr Garza and outpatient stress test. pain is reproducible to chest palpation, possibly musculoskeletal from strain of vomiting. 2. Nausea/vomiting: Not currently having, able to tolerate breakfast. Will give Protonix and GI cocktail. Monitor. Passing gas and having BMs, no abdominal pain. 3. HTN: Stable currently, unsure of medications, "You would have to ask my . " Nursing attempting to obtain list from pharmacy. 4. DM type 2; Uncontrolled. Will try have DM educator speak with him. Encouraged him to start being more complaint with insulin due to high risk of diabetic compilations such as CVA, [place] and infections with poorly controlled diabetes. Continue Novolog with meals and Lantus. VTE prophylaxis: Lovenox. Dispo: 1 day, possible DC later this afternoon if troponin returns negative. Discharge Diagnoses: Atypical chest pain- likely musculoskeletal for vomiting Un-controlled DM HTN Recent cholecystectomy Chest pain is intermittent still, but it is with movement and reproducible with palpation to chest. Likely muscloskeletal from episodes of vomiting. Due to pmh and family history will get him set up with new PCP as well as with Dr Garza and outpatient stress test. He is to take Tylenol for pain as needed and limit activity until after stress test. he again was encouraged to maintain ADA diet and better control BS with diet control and insulin. He verbalized understanding. All VS stable. ACS ruled out no ischemic changes noted on telemetry and troponins all negative. He is to return to the ED or clinic if concerns should arise.
--- NOTE | 2017-12-08 15:44 | CR ---
EXAM DATE: 12/08/17 PATIENT'S AGE: 42 Patient: MARY EVERETT Facility: [place], [place] Site . Site : [id number] Study: XRay Chest [id number]/12/2018 4:52:59 AM Ordering Physician: Doctor Diez Final Report: INDICATION: CHEST PAIN SINCE TUES AND HAS GOTTEN WORSE CHEST, PA AND LATERAL Upright PA and lateral radiographs of the chest were performed. Comparison: 10/18/2017. The lungs appear clear and there are no pleural effusions. Heart size and pulmonary vasculature appear normal. Visualized bones show no significant findings. IMPRESSION: No acute intrathoracic abnormality identified. CEFERINO ROLDAN MD [employer] Dictated by: Toby Roldan MD @ 12/08/2017 05:09:39 (Electronic Signature) Report Signed by Proxy. [facility]ERYady
== END 2017-12-08 17:00 | disposition home or self-care (01) ==
LOC: MW.ED 04:06 → MW.MS 05:13
PROVIDERS: ADMIT Internal Medicine; ATTEND Internal Medicine
DX: R07.89 Other chest pain (principal); R06.02 Shortness of breath; I10 Essential (primary) hypertension; I25.2 Old myocardial infarction; E11.65 Type 2 diabetes mellitus with hyperglycemia; E78.00 Pure hypercholesterolemia, unspecified; J45.909 Unspecified asthma, uncomplicated; K21.9 Gastro-esophageal reflux disease without esophagitis; G47.30 Sleep apnea, unspecified; F41.9 Anxiety disorder, unspecified; F31.9 Bipolar disorder, unspecified; E66.9 Obesity, unspecified; Z79.4 Long term (current) use of insulin; Z79.899 Other long term (current) drug therapy; Z88.0 Allergy status to penicillin; Z91.041 Radiographic dye allergy status; Z82.49 Family history of ischemic heart disease and other diseases of the circulatory system
CPT/HCPCS: 36415; 71046; 80053; 82962; 84484; 85025; 85610; 93005; 96374; 96375; 96376; 99285; A9270; C9113; G0378; J1815; J2270; 99283

== ENCOUNTER 2017-12-11 14:33 | Emergency (ER) | payer MEDICARE, OTHER ==
[2017-12-11] MEDS ORDERED: Sodium Chloride 0.9% 10 ML Syringe FLUSH PRN (14:59)
[2017-12-11] MEDS ORDERED: Sodium Chloride 0.9% 2.5 ML Syringe FLUSH PRN (14:59)
--- NOTE | 2017-12-11 15:00 | EDM.PDOC ---
ED HPI GENERAL MEDICAL PROBLEM - General Chief Complaint: Skin Complaint Time Seen by Provider: 12/11/17 15:00 Source of Information: Reports: Patient History Limitations: Reports: No Limitations - History of Present Illness INITIAL COMMENTS - FREE TEXT/NARRATIVE: HISTORY AND PHYSICAL: History of present illness: [Tito is a 42-year-old male here for draining incision. Patient had a laproscopic cholecystectomy with Dr. Fernandes on 11/22/17. He states the incision in the RUQ has been red, painful, and with purulent drainage. He states he has felt feverish with chills. Past medical history of uncontrolled diabetes, he reports last a1c greater than 10%. ] Review of systems: As per history of present illness and below otherwise all systems reviewed and negative. Past medical history: As per history of present illness and as reviewed below otherwise noncontributory. Surgical history: As per history of present illness and as reviewed below otherwise noncontributory. Social history: No reported history of drug or alcohol abuse. Family history: As per history of present illness and as reviewed below otherwise noncontributory. Physical exam: General: patient lying comfortably in no acute distress HEENT: Atraumatic, normocephalic, pupils reactive, negative for conjunctival pallor or scleral icterus, mucous membranes moist, throat clear, neck supple, nontender, trachea midline. Lungs: Clear to auscultation, breath sounds equal bilaterally, chest nontender. Heart: S1S2, regular, negative for clicks, rubs, or JVD. Abdomen: There is a 3cm incision to the RUQ that is slightly erythematous with dried purulent fluid noted. Moderate tenderness to palpation around the incision. The remaining incision are well healed without erythema or drainage. Soft, obese. Negative for masses or hepatosplenomegaly. Negative for costovertebral tenderness. Pelvis: Stable nontender. Genitourinary: Deferred. Rectal: Deferred. Extremities: Atraumatic, negative for cords or calf pain. Neurovascular unremarkable. Neuro: Awake, alert, oriented. Cranial nerves II through XII unremarkable. Cerebellum unremarkable. Motor and sensory unremarkable throughout. Exam nonfocal. Notes: Diagnostics: CBC, CMP CT abdomen/pelvis without contrast (patient has contrast allergy) Therapeutics: Bactrim DS Impression: Cellulitis Plan: #1 Take antibiotic as directed #2 Follow up with primary care provider #3 Return to ED as needed as discussed Definitive disposition and diagnosis as appropriate pending reevaluation and review of above. Middle Incisional Pain Score (Numeric/FACES): 10 - Related Data Allergies Allergy/AdvReac Type Severity Reaction Status Date / Time Iodinated Contrast- Oral and Allergy Nausea and Verified 12/11/17 14:49 IV Dye Vomiting Penicillins Allergy Swelling Verified 12/11/17 14:49 Home Meds: Home Meds Insulin Aspart [NovoLOG] See Protocol SUBCUT TID #3 pen 09/08/17 [Rx] Insulin Glarg,Human.Rec.Analog [Lantus] 0 unit SUBCUT DAILY 10/06/17 [History] metFORMIN [Glucophage XR] 0 mg PO BID 10/17/17 [History] Rosuvastatin Calcium 0 mg PO DAILY 11/21/17 [History] Acetaminophen [Tylenol] 650 mg PO Q4H PRN tablet 12/08/17 [Rx] Past Medical History HEENT History: Reports: Other (See Below) Other HEENT History: wears glasses Cardiovascular History: Reports: High Cholesterol, Hypertension, MT Other Cardiovascular History: "high blood pressure in the past" "Me and everyone in my family have heart failure" Respiratory History: Reports: Asthma, PE, Sleep Apnea Other Respiratory History: anila PE following shoulder surgery, does not have CPAP at this time Gastrointestinal History: Reports: Cholelithiasis, GERD, Inflammatory Bowel Disease, Pancreatitis Other Gastrointestinal History: h/o diverticulitis (8 inches taken of left colon due to it) Genitourinary History: Reports: Renal Calculus Musculoskeletal History: Reports: Arthritis Neurological History: Reports: Concussion, Migraines Psychiatric History: Reports: Anxiety, Bipolar, Depression Endocrine/Metabolic History: Reports: Diabetes, Type II, Obesity/BMI 30+ Hematologic History: Reports: Blood Transfusion(s) Immunologic History: Reports: None Oncologic (Cancer) History: Reports: None Dermatologic History: Reports: None - Infectious Disease History Infectious Disease History: Reports: None - Past Surgical History HEENT Surgical History: Reports: Tonsillectomy GI Surgical History: Reports: Cholecystectomy, Colon, Colonoscopy, EGD Musculoskeletal Surgical History: Reports: Arthroscopic Procedure, Knee Replacement, Other (See Below), Shoulder Surgery Social & Family History - Family History Family Medical History: Noncontributory Cardiac: Reports: CAD, Heart Failure, Hypertension, MT Neurological: Reports: CVA Endocrine/Metabolic: Reports: Diabetes, type II Oncologic: Reports: Breast, Colon, Leukemia - Tobacco Use Smoking Status *Q: Never Smoker - Caffeine Use Caffeine Use: Reports: Soda, Tea - Recreational Drug Use Recreational Drug Use: No ED ROS GENERAL - Review of Systems Review Of Systems: ROS reveals no pertinent complaints other than HPI. ED EXAM, SKIN/RASH Exam: See Below (see dictation) Course - Vital Signs Last Recorded V/S: Last Vital Signs Temp 36.4 C 12/11/17 14:44 Pulse 97 12/11/17 14:44 Resp 18 12/11/17 14:44 BP 149/92 H 12/11/17 14:44 Pulse Ox 96 12/11/17 14:44 - Orders/Labs/Meds Orders: Active Orders 24 hr Category Date Time Status Abdomen Pelvis wo Cont [CT] Stat Exams 12/11/17 15:29 Taken Sodium Chloride 0.9% [Saline Flush] Med 12/11/17 14:59 Active 10 ml FLUSH ASDIRECTED PRN Sodium Chloride 0.9% [Saline Flush] Med 12/11/17 14:59 Active 2.5 ml FLUSH ASDIRECTED PRN Saline Lock Insert [OM.PC] Stat Oth 12/11/17 14:58 Ordered Medication Orders Sodium Chloride (Saline Flush) 10 ml FLUSH ASDIRECTED PRN PRN Reason: Keep Vein Open Sodium Chloride (Saline Flush) 2.5 ml FLUSH ASDIRECTED PRN PRN Reason: Keep Vein Open Labs: Laboratory Tests 12/11/17 12/11/17 Range/Units 15:15 15:15 WBC 5.61 (4.0-11.0) K/uL RBC 4.72 (4.50-5.90) M/uL Hgb 14.9 (13.0-17.0) g/dL Hct 41.6 (38.0-50.0) % MCV 88.1 (80.0-98.0) fL MCH 31.6 (27.0-32.0) pg MCHC 35.8 (31.0-37.0) g/dL RDW Std Deviation 40.9 (28.0-62.0) fl RDW Coeff of Torsten 13 (11.0-15.0) % Plt Count 155 (150-400) K/uL MPV 10.30 (7.40-12.00) fL Neut % (Auto) 50.6 (48.0-80.0) % Lymph % (Auto) 35.7 (16.0-40.0) % Parker % (Auto) 10.3 (0.0-15.0) % Eos % (Auto) 2.7 (0.0-7.0) % Baso % (Auto) 0.7 (0.0-1.5) % Neut # (Auto) 2.8 (1.4-5.7) K/uL Lymph # (Auto) 2.0 (0.6-2.4) K/uL Parker # (Auto) 0.6 (0.0-0.8) K/uL Eos # (Auto) 0.2 (0.0-0.7) K/uL Baso # (Auto) 0.0 (0.0-0.1) K/uL Nucleated RBC % 0.0 /100WBC Nucleated RBCs # 0 K/uL Sodium 135 L (136-148) mmol/L Potassium 3.6 (3.5-5.1) mmol/L Chloride 100 (98-107) mmol/L Carbon Dioxide 24.3 (21.0-32.0) mmol/L BUN 7 (7.0-18.0) mg/dL Creatinine 1.1 (0.8-1.3) mg/dL Est Cr Clr Drug Dosing 94.06 mL/min Estimated GFR (MDRD) > 60.0 ml/min Glucose 362 H (74-106) mg/dL Calcium 8.7 (8.5-10.1) mg/dL Total Bilirubin 0.3 (0.2-1.0) mg/dL AST 10 L (15-37) IU/L ALT 30 (14-63) IU/L Alkaline Phosphatase 139 H (46-116) U/L Total Protein 7.2 (6.4-8.2) g/dL Albumin 3.3 L (3.4-5.0) g/dL Globulin 3.9 H (2.0-3.5) g/dL Albumin/Globulin Ratio 0.9 L (1.3-2.8) Meds: Medications Generic Name Dose Route Start Last Admin Trade Name Freq PRN Reason Stop Dose Admin Sodium Chloride 10 ml 12/11/17 14:59 Saline Flush FLUSH ASDIRECTED PRN Keep Vein Open Sodium Chloride 2.5 ml 12/11/17 14:59 Saline Flush FLUSH ASDIRECTED PRN Keep Vein Open Departure - Departure Time of Disposition: 16:39 Disposition: Home, Self-Care 01 Condition: Good Clinical Impression: Cellulitis - Discharge Information Referrals: PCP,None [Primary Care Provider] - Forms: ED Department Discharge Additional Instructions: The following information is given to patients seen in the emergency department who are being discharged to home. This information is to outline your options for follow-up care. We provide all patients seen in our emergency department with a follow-up referral. The need for follow-up, as well as the timing and circumstances, are variable depending upon the specifics of your emergency department visit. If you don't have a primary care physician on staff, we will provide you with a referral. We always advise you to contact your personal physician following an emergency department visit to inform them of the circumstance of the visit and for follow-up with them and/or the need for any referrals to a consulting specialist. The emergency department will also refer you to a specialist when appropriate. This referral assures that you have the opportunity for follow-up care with a specialist. All of these measure are taken in an effort to provide you with optimal care, which includes your follow-up. Under all circumstances we always encourage you to contact your private physician who remains a resource for coordinating your care. When calling for follow-up care, please make the office aware that this follow-up is from your recent emergency room visit. If for any reason you are refused follow-up, please contact the [facility] Emergency Department at and asked to speak to the emergency department charge nurse. [facility] [address] [place] [address] #1 Take antibiotic as directed #2 Follow up with primary care provider #3 Return to ED as needed as discussed - My Orders Last 24 Hours: My Active Orders 12/11/17 14:58 Saline Lock Insert [OM.PC] Stat 12/11/17 14:59 Sodium Chloride 0.9% [Saline Flush] 10 ml FLUSH ASDIRECTED PRN Sodium Chloride 0.9% [Saline Flush] 2.5 ml FLUSH ASDIRECTED PRN 12/11/17 15:29 Abdomen Pelvis wo Cont [CT] Stat - Assessment/Plan Last 24 Hours: My Active Orders 12/11/17 14:58 Saline Lock Insert [OM.PC] Stat 12/11/17 14:59 Sodium Chloride 0.9% [Saline Flush] 10 ml FLUSH ASDIRECTED PRN Sodium Chloride 0.9% [Saline Flush] 2.5 ml FLUSH ASDIRECTED PRN 12/11/17 15:29 Abdomen Pelvis wo Cont [CT] Stat
[2017-12-11 15:47] LABS: CHLORIDE,CL 100 mmol/L (98-107); SODIUM,NA 135 mmol/L (136-148)
--- NOTE | 2017-12-12 17:46 | CT ---
EXAM DATE: 12/11/17 PATIENT'S AGE: 42 Patient: MARY EVERETT Facility: [place], [place] Site . Site : [id number] Study: CT Abdomen/Pelvis [id number]/[id number] 4:00:33 PM Ordering Physician: Doctor Diez Final Report: INDICATION: Incision drainage. Gallbladder surgery approximately 3 weeks ago. TECHNIQUE: Volumetric unenhanced CT examination of the abdomen and pelvis with multiplanar reconstruction. Intravenous contrast not administered due to patient`s history of iodine contrast allergy. FINDINGS: The lung bases are clear. The liver is normal in size and without focal abnormality. The liver displays changes of diffuse fatty infiltration. The gallbladder is surgically absent. Postoperative change in the gallbladder fossa. No abscess or fluid collection. No dilatation of the biliary system. The spleen, pancreas, and adrenal glands are normal. Kidneys normal in size, shape, and position. No hydronephrosis. No renal masses or focal parenchymal abnormalities. Ureters normal in course and caliber. Abdominal aorta normal in caliber. No para-aortic or retrocrural lymphadenopathy. Normal bowel gas pattern. No inflammatory changes involving the bowel. Urinary bladder has a smooth contour. The fat planes surrounding the bladder, rectum, and prostate are maintained. No free fluid in the abdomen and pelvis. No acute bony abnormality. IMPRESSION 1. The gallbladder is surgically absent. Postoperative change in the gallbladder fossa. No abscess or fluid collection. 2. Diffuse fatty infiltration of the liver. Please note that all CT scans at this facility use dose modulation, iterative reconstruction, and/or weight-based dosing when appropriate to reduce radiation dose to as low as reasonably achievable. Dictated by Tr Tyler MD @ Dec 11 2017 4:04PM (Electronic Signature) Report Signed by Proxy. [email or web address]
== END 2017-12-11 17:30 | disposition home or self-care (01) ==
LOC: MW.ED 14:33
DX: L03.311 Cellulitis of abdominal wall (principal); I10 Essential (primary) hypertension; E78.00 Pure hypercholesterolemia, unspecified; I25.2 Old myocardial infarction; E11.9 Type 2 diabetes mellitus without complications; Z88.0 Allergy status to penicillin; Z91.041 Radiographic dye allergy status; Z79.4 Long term (current) use of insulin; Z79.899 Other long term (current) drug therapy
CPT/HCPCS: 36415; 74176; 74176-26; 80053; 85025; 99283; 99283-25

== ENCOUNTER 2017-12-14 22:17 | Inpatient (IN) | payer MEDICARE, OTHER ==
--- NOTE | 2017-12-14 22:27 | EDM.PDOC ---
ED HPI GENERAL MEDICAL PROBLEM - General Chief Complaint: Abdominal Pain Stated Complaint: CHEST PAIN Time Seen by Provider: 12/14/17 22:22 - History of Present Illness INITIAL COMMENTS - FREE TEXT/NARRATIVE: HISTORY AND PHYSICAL: History of present illness: The patient is a 42-year-old male who is well known to this emergency department and has a history of hypertension hyperlipidemia poorly controlled diabetes pancreatitis and underwent a cholecystectomy here on November 21. The patient was seen here subsequently on December 08 complaining of nonspecific chest pain and was admitted as an observation and ruled out for cardiac problems. He represented here on December 11, 3 days ago, complaining of abdominal pain and concerns about his incision and he underwent labs and a CT scan which was negative. He was given antibiotics for cellulitis of his incisional wound and was advised to follow-up with his surgeon Dr. Fernandes. He states compliance with his antibiotics and feels that the cellulitis at the incision is much improved. He presents tonight for complaints of epigastric pain that radiates up his mid chest associated with nausea and vomiting intermittently since his surgery. He did not schedule a follow-up appointment with Dr. Fernandes after his last visit here 3 days ago and he has been only using [id number] Tums. He has not had a bowel movement in 2 days and has not taken anything over- the-counter to assist with that. He has no fevers chills shortness of breath or dysuria. He has no flank pain. He indicates the discomfort in the upper abdomen in the epigastric and left upper quadrant areas and says it radiates up to his chest. He says it does not originate in his chest. He is not having any fevers or back pain. He also has a significant past surgical history of colon surgery for diverticulitis Review of systems: As per history of present illness and below otherwise all systems reviewed and negative. Past medical history: As per history of present illness and as reviewed below otherwise noncontributory. Surgical history: As per history of present illness and as reviewed below otherwise noncontributory. Social history: No reported history of drug or alcohol abuse. Family history: As per history of present illness and as reviewed below otherwise noncontributory. Physical exam: General: General: Well-developed well-nourished overweight man who is nontoxic and vital signs are noted by me. HEENT: Atraumatic, normocephalic, negative for conjunctival pallor or scleral icterus, mucous membranes moist, throat clear, neck supple, nontender, trachea midline. Lungs: Clear to auscultation, breath sounds equal bilaterally, chest nontender. Heart: S1S2, regular, and rhythm no overt murmurs Abdomen: Soft, nondistended, bowel sounds are hypoactive and there is some tympany on percussion of the upper abdomen. All incisions look clean and dry with only some pinkish erythema around the more recent ones but no fluctuance or drainage. There is an old midline infraumbilical incision that is well- healed. There is tenderness with palpation in the epigastrium and left upper quadrant without rebound or guarding. The remainder of the abdomen is nontender. Negative for masses or hepatosplenomegaly. Pelvis: Deferred Genitourinary: Deferred. Rectal: Deferred. Extremities: Atraumatic, negative for cords or calf pain. Neurovascular unremarkable. Neuro: Awake, alert, oriented. Cranial nerves II through XII unremarkable. Cerebellum unremarkable. Motor and sensory unremarkable throughout. Exam nonfocal. Diagnostics: EKG CBC CMP amylase lipase troponin H. pylori UA abdominal x-rays with chest Blood work and CT scan performed on December 11 was reviewed by [employer]: IV O2 monitor IV fluids Zofran and Protonix 2335: Testing results were discussed with our surgeon on-call doctor Shelia including reviewing the prior CT of 3 days ago and the operative note. He would like the patient to be admitted to the hospitalist with an ultrasound to be done at approximately 6:30 AM and with repeat labs and this ultrasound result we can make a disposition to either transfer for ERCP or continue to manage here medically. A formal consult was placed for him to indicate his care plan. 2340: Case was discussed with our hospitalist Dr. Del Angel and she actually came in to see and evaluate the patient personally at 12 midnight. Observation admission will be placed for her with surgery consult. Testing results were discussed with the patient and care plan discussed with him. Impression: Upper abdominal pain with vomiting, Acute pancreatitis with elevated LFTs and recent laparoscopic cholecystectomy for biliary dyskinesia Definitive disposition and diagnosis as appropriate pending reevaluation and review of above. epigastric Pain Score (Numeric/FACES): 10 - Related Data Allergies Allergy/AdvReac Type Severity Reaction Status Date / Time Iodinated Contrast- Oral and Allergy Nausea and Verified 07/18/18 22:26 IV Dye Vomiting Penicillins Allergy Swelling Verified 12/14/17 22:26 Home Meds: Home Meds Insulin Aspart [NovoLOG] See Protocol SUBCUT TID #3 pen 09/08/17 [Rx] Insulin Glarg,Human.Rec.Analog [Lantus] 0 unit SUBCUT DAILY 10/06/17 [History] metFORMIN [Glucophage XR] 500 mg PO BID 10/17/17 [History] Rosuvastatin Calcium 10 mg PO DAILY 11/21/17 [History] Acetaminophen [Tylenol] 650 mg PO Q4H PRN tablet 12/08/17 [Rx] Past Medical History HEENT History: Reports: Other (See Below) Other HEENT History: wears glasses Cardiovascular History: Reports: High Cholesterol, Hypertension, [place] Other Cardiovascular History: "high blood pressure in the past" "Me and everyone in my family have heart failure" Respiratory History: Reports: Asthma, PE, Sleep Apnea Other Respiratory History: anila PE following shoulder surgery, does not have CPAP at this time Gastrointestinal History: Reports: Cholelithiasis, GERD, Inflammatory Bowel Disease, Pancreatitis Other Gastrointestinal History: h/o diverticulitis (8 inches taken of left colon due to it) Genitourinary History: Reports: Renal Calculus Musculoskeletal History: Reports: Arthritis Neurological History: Reports: Concussion, Migraines Psychiatric History: Reports: Anxiety, Bipolar, Depression Endocrine/Metabolic History: Reports: Diabetes, Type II, Obesity/BMI 30+ Hematologic History: Reports: Blood Transfusion(s) Immunologic History: Reports: None Oncologic (Cancer) History: Reports: None Dermatologic History: Reports: None - Infectious Disease History Infectious Disease History: Reports: None - Past Surgical History HEENT Surgical History: Reports: Tonsillectomy GI Surgical History: Reports: Cholecystectomy, Colon, Colonoscopy, EGD Musculoskeletal Surgical History: Reports: Arthroscopic Procedure, Knee Replacement, Other (See Below), Shoulder Surgery Social & Family History - Family History Family Medical History: Noncontributory Cardiac: Reports: CAD, Heart Failure, Hypertension, [place] Neurological: Reports: CVA Endocrine/Metabolic: Reports: Diabetes, type II Oncologic: Reports: Breast, Colon, Leukemia - Caffeine Use Caffeine Use: Reports: Soda, Tea ED ROS GENERAL - Review of Systems Review Of Systems: ROS reveals no pertinent complaints other than HPI. ED EXAM, GENERAL - Physical Exam Exam: See Below (See dictation) Course - Vital Signs Last Recorded V/S: Last Vital Signs Temp 36.1 C 12/14/17 22:21 Pulse 98 12/15/17 00:10 Resp 20 12/14/17 22:21 BP 127/85 12/14/17 22:21 Pulse Ox 97 12/14/17 22:21 - Orders/Labs/Meds Orders: Active Orders 24 hr Category Date Time Status Patient Status [ADT] Stat ADT 12/15/17 00:10 Ordered EKG Documentation Completion [RC] STAT Care 12/14/17 22:32 Active Notify Provider Consults [RC] ASDIRECTED Care 12/15/17 00:11 Ordered Consult to Physician [CONS] Stat Cons 12/15/17 00:10 Ordered Abdomen Series w Chest 1V [CR] Stat Exams 12/14/17 22:32 Taken UA W/MICROSCOPIC [URIN] Stat Lab 12/14/17 22:48 Ordered Sodium Chloride 0.9% [Saline Flush] Med 12/14/17 22:32 Active 10 ml FLUSH ASDIRECTED PRN Sodium Chloride 0.9% [Saline Flush] Med 12/14/17 22:32 Active 2.5 ml FLUSH ASDIRECTED PRN Saline Lock Insert [OM.PC] Stat Oth 12/14/17 22:32 Ordered Medication Orders Sodium Chloride (Saline Flush) 10 ml FLUSH ASDIRECTED PRN PRN Reason: Keep Vein Open Sodium Chloride (Saline Flush) 2.5 ml FLUSH ASDIRECTED PRN PRN Reason: Keep Vein Open Labs: Laboratory Tests 12/14/17 12/14/17 12/14/17 Range/Units 22:45 22:45 22:45 WBC 5.97 (4.0-11.0) K/uL RBC 4.86 (4.50-5.90) M/uL Hgb 15.4 (13.0-17.0) g/dL Hct 43.1 (38.0-50.0) % MCV 88.7 (80.0-98.0) fL MCH 31.7 (27.0-32.0) pg MCHC 35.7 (31.0-37.0) g/dL RDW Std Deviation 41.6 (28.0-62.0) fl RDW Coeff of Torsten 13 (11.0-15.0) % Plt Count 173 (150-400) K/uL MPV 10.50 (7.40-12.00) fL Neut % (Auto) 63.1 (48.0-80.0) % Lymph % (Auto) 24.1 (16.0-40.0) % [place] % (Auto) 8.7 (0.0-15.0) % Eos % (Auto) 3.4 (0.0-7.0) % Baso % (Auto) 0.7 (0.0-1.5) % Neut # (Auto) 3.8 (1.4-5.7) K/uL Lymph # (Auto) 1.4 (0.6-2.4) K/uL [place] # (Auto) 0.5 (0.0-0.8) K/uL Eos # (Auto) 0.2 (0.0-0.7) K/uL Baso # (Auto) 0.0 (0.0-0.1) K/uL Nucleated RBC % 0.0 /100WBC Nucleated RBCs # 0 K/uL Sodium 136 (136-148) mmol/L Potassium 3.4 L (3.5-5.1) mmol/L Chloride 99 (98-107) mmol/L Carbon Dioxide 26.8 (21.0-32.0) mmol/L BUN 5 L (7.0-18.0) mg/dL Creatinine 1.0 (0.8-1.3) mg/dL Est Cr Clr Drug Dosing 103.47 mL/min Estimated GFR (MDRD) > 60.0 ml/min Glucose 307 H (74-106) mg/dL Calcium 8.9 (8.5-10.1) mg/dL Total Bilirubin 3.1 H (0.2-1.0) mg/dL AST 195 H (15-37) IU/L ALT 238 H (14-63) IU/L Alkaline Phosphatase 184 H (46-116) U/L Troponin I < 0.050 (0.000-0.056) ng/mL Total Protein 7.4 (6.4-8.2) g/dL Albumin 3.3 L (3.4-5.0) g/dL Globulin 4.1 H (2.0-3.5) g/dL Albumin/Globulin Ratio 0.8 L (1.3-2.8) Amylase 225 H (25-115) U/L Lipase 5561 H (73-393) U/L Urine Color Urine Appearance Urine pH (5.0-8.0) Ur Specific [employer] (1.001-1.035) Urine Protein (NEGATIVE) mg/dL Urine Glucose (UA) (NEGATIVE) mg/dL Urine Ketones (NEGATIVE) mg/dL Urine Occult Blood (NEGATIVE) Urine Nitrite (NEGATIVE) Urine Bilirubin (NEGATIVE) Urine Ictotest Urine Urobilinogen (<2.0) EU/dL Ur Leukocyte Esterase (NEGATIVE) Urine RBC (0-2/HPF) Urine WBC (0-5/HPF) Ur Epithelial Cells (NONE-FEW) Urine Bacteria (NEGATIVE) Urine Mucus (NONE-MOD) H. pylori IgG Antibody NEGATIVE (NEG) 12/14/17 Range/Units 22:48 WBC (4.0-11.0) K/uL RBC (4.50-5.90) M/uL Hgb (13.0-17.0) g/dL Hct (38.0-50.0) % MCV (80.0-98.0) fL MCH (27.0-32.0) pg MCHC (31.0-37.0) g/dL RDW Std Deviation (28.0-62.0) fl RDW Coeff of [place] (11.0-15.0) % Plt Count (150-400) K/uL MPV (7.40-12.00) fL Neut % (Auto) (48.0-80.0) % Lymph % (Auto) (16.0-40.0) % [place] % (Auto) (0.0-15.0) % Eos % (Auto) (0.0-7.0) % Baso % (Auto) (0.0-1.5) % Neut # (Auto) (1.4-5.7) K/uL Lymph # (Auto) (0.6-2.4) K/uL [place] # (Auto) (0.0-0.8) K/uL Eos # (Auto) (0.0-0.7) K/uL Baso # (Auto) (0.0-0.1) K/uL Nucleated RBC % /100WBC Nucleated RBCs # K/uL Sodium (136-148) mmol/L Potassium (3.5-5.1) mmol/L Chloride (98-107) mmol/L Carbon Dioxide (21.0-32.0) mmol/L BUN (7.0-18.0) mg/dL Creatinine (0.8-1.3) mg/dL Est Cr Clr Drug Dosing mL/min Estimated GFR (MDRD) ml/min Glucose (74-106) mg/dL Calcium (8.5-10.1) mg/dL Total Bilirubin (0.2-1.0) mg/dL AST (15-37) IU/L ALT (14-63) IU/L Alkaline Phosphatase (46-116) U/L Troponin I (0.000-0.056) ng/mL Total Protein (6.4-8.2) g/dL Albumin (3.4-5.0) g/dL Globulin (2.0-3.5) g/dL Albumin/Globulin Ratio (1.3-2.8) Amylase (25-115) U/L Lipase (73-393) U/L Urine Color DARK YELLOW Urine Appearance CLEAR Urine pH 6.0 (5.0-8.0) Ur Specific [employer] 1.020 (1.001-1.035) Urine Protein 100 (NEGATIVE) mg/dL Urine Glucose (UA) >=1000 (NEGATIVE) mg/dL Urine Ketones NEGATIVE (NEGATIVE) mg/dL Urine Occult Blood NEGATIVE (NEGATIVE) Urine Nitrite NEGATIVE (NEGATIVE) Urine Bilirubin MODERATE H (NEGATIVE) Urine Ictotest POSITIVE Urine Urobilinogen >=8.0 H (<2.0) EU/dL Ur Leukocyte Esterase NEGATIVE (NEGATIVE) Urine RBC 0-1 (0-2/HPF) Urine WBC 0-1 (0-5/HPF) Ur Epithelial Cells RARE (NONE-FEW) Urine Bacteria RARE (NEGATIVE) Urine Mucus LIGHT (NONE-MOD) H. pylori IgG Antibody (NEG) Meds: Medications Generic Name Dose Route Start Last Admin Trade Name Freq PRN Reason Stop Dose Admin Sodium Chloride 10 ml 12/14/17 22:32 Saline Flush FLUSH ASDIRECTED PRN Keep Vein Open Sodium Chloride 2.5 ml 12/14/17 22:32 Saline Flush FLUSH ASDIRECTED PRN Keep Vein Open Discontinued Medications Generic Name Dose Route Start Last Admin Trade Name Freq PRN Reason Stop Dose Admin Sodium Chloride 1,000 mls @ 999 mls/hr 12/14/17 22:32 12/14/17 22:52 Normal Saline IV 12/14/17 23:32 999 mls/hr STAT ONE Administration Ondansetron HCl 4 mg 12/14/17 22:32 12/14/17 22:53 Zofran IVPUSH 12/14/17 22:33 4 mg ONETIME ONE Administration Pantoprazole Sodium 80 mg 12/14/17 22:32 12/14/17 22:53 Protonix Iv IVPUSH 12/14/17 22:33 80 mg .BOLUS ONE Administration Departure - Departure Time of Disposition: 00:13 Disposition: Refer to Observation Condition: Good Clinical Impression: Elevated liver function tests Pancreatitis Qualifiers: Chronicity: acute Pancreatitis type: unspecified pancreatitis type Acute pancreatitis complication: unspecified Qualified Code(s): K85.90 - Acute pancreatitis without necrosis or infection, unspecified - Discharge Information Referrals: PCP,None [Primary Care Provider] - Forms: ED Department Discharge - My Orders Last 24 Hours: My Active Orders 12/14/17 22:32 EKG Documentation Completion [RC] STAT Abdomen Series w Chest 1V [CR] Stat Sodium Chloride 0.9% [Saline Flush] 10 ml FLUSH ASDIRECTED PRN Sodium Chloride 0.9% [Saline Flush] 2.5 ml FLUSH ASDIRECTED PRN Saline Lock Insert [OM.PC] Stat 12/14/17 22:48 UA W/MICROSCOPIC [URIN] Stat 12/15/17 00:10 Patient Status [ADT] Stat Consult to Physician [CONS] Stat 12/15/17 00:11 Notify Provider Consults [RC] ASDIRECTED - Assessment/Plan Last 24 Hours: My Active Orders 12/14/17 22:32 EKG Documentation Completion [RC] STAT Abdomen Series w Chest 1V [CR] Stat Sodium Chloride 0.9% [Saline Flush] 10 ml FLUSH ASDIRECTED PRN Sodium Chloride 0.9% [Saline Flush] 2.5 ml FLUSH ASDIRECTED PRN Saline Lock Insert [OM.PC] Stat 12/14/17 22:48 UA W/MICROSCOPIC [URIN] Stat 12/15/17 00:10 Patient Status [ADT] Stat Consult to Physician [CONS] Stat 12/15/17 00:11 Notify Provider Consults [RC] ASDIRECTED
[2017-12-14] MEDS ORDERED: Pantoprazole 40 MG Vial IVPUSH ONE (22:32)
[2017-12-14] MEDS ORDERED: Sodium Chloride 0.9% 1,000 ML IV ONE (22:32)
[2017-12-14] MEDS ORDERED: Sodium Chloride 0.9% 10 ML Syringe FLUSH PRN (22:32)
[2017-12-14] MEDS ORDERED: Ondansetron 4 MG/2 ML SDV IVPUSH ONE (22:32)
[2017-12-14] MEDS ORDERED: Sodium Chloride 0.9% 2.5 ML Syringe FLUSH PRN (22:32)
[2017-12-14 23:19] LABS: CHLORIDE,CL 99 mmol/L (98-107); SODIUM,NA 136 mmol/L (136-148)
[2017-12-15] MEDS ORDERED: Enoxaparin 40 MG/0.4 ML Syringe SUBCUT SCH (00:45)
[2017-12-15] MEDS ORDERED: Lactated Ringers 1,000 ML IV SCH ×2 (00:45→01:00)
[2017-12-15] MEDS ORDERED: Ondansetron 4 MG/2 ML SDV IVPUSH PRN (00:46)
[2017-12-15] MEDS ORDERED: HYDROmorphone 2 MG/ML Syringe IVPUSH PRN (00:47)
[2017-12-15] MEDS ORDERED: Lactated Ringers 1,000 ML IV ONE (00:49)
[2017-12-15] MEDS ORDERED: Potassium Chloride 20 MEQ Tab.ER PO ONE (00:50)
--- NOTE | 2017-12-15 01:12 | PCM.SN ---
- Free Text/Narrative Note: pt seen, chart reviewed; dr. lee morris prn; [id number]
[2017-12-15] MEDS ORDERED: HYDROmorphone 1 MG/ML Syringe IVPUSH PRN (01:15)
[2017-12-15] MEDS ORDERED: HYDROmorphone 1 MG/ML Syringe IVPUSH SCH (01:15)
[2017-12-15] MEDS ORDERED: HYDROmorphone 1 MG/ML Syringe IVPUSH ONE (03:38)
[2017-12-15] MEDS ORDERED: Ondansetron 4 MG/2 ML SDV IVPUSH ONE (03:40)
[2017-12-15] MEDS ORDERED: Insulin Aspart 100 Units/ML 3 ML Pen SUBCUT SCH ×2 (06:00→07:30)
--- NOTE | 2017-12-15 08:30 | CONS ---
DATE OF CONSULTATION: 12/14/2017 DATE OF : 1975 PRIMARY CARE PHYSICIAN: None PCP REASON FOR CONSULTATION: Abdominal discomfort. HISTORY OF PRESENT ILLNESS: The patient is a 42-year-old gentleman and well known to the emergency room. He has a history of hypertension, hyperlipidemia, poorly controlled diabetes, and pancreatitis. He underwent a cholecystectomy on November [address] Fernandes, and the patient has been seen in the ER since three days ago, some chest pain and workup was negative, and today he complained of abdominal discomfort and was seen in the emergency room. The patient remarked his pain is 10/10. MEDICATION: Please refer to nursing for details. ALLERGIES: Please refer to nursing for details. PAST MEDICAL HISTORY: Significant for pancreatitis and diabetes. PAST SURGICAL HISTORY: The most recent one is laparoscopic cholecystectomy. FAMILY HISTORY: Noncontributory. SOCIAL HISTORY: Please refer to nursing for details. PHYSICAL EXAMINATION: GENERAL: This gentleman is totally comfortable, in bed lying down, walking around the room, but complaining about pain, it is 10/10. ABDOMEN: Laparoscopic surgical scar is well healed. No inflammation. No expressed material. Abdominal exam is benign. LABORATORY DATA: Laboratory value upon consultation, white count 6, and H and H was 15 and 43. BUN is 5, creatinine is 1. Total bilirubin is 3.1 today. AST and ALT of 195 and 238, alkaline phosphatase 184. Amylase 225, lipase is 5561. IMPRESSION: Another flare up of his chronic pancreatitis looking his history, likely a medical problem. I agree with medical consult, and from a surgical standpoint, the patient is doing fine. The patient should have a followup appointment with Dr. Fernandes, and try to avoid greasy or fatty foods until the pancreatitis resolve. Thanks for the consultation of this patient. SALLY / NACHO /[id number]
--- NOTE | 2017-12-15 09:51 | CR ---
EXAM DATE: 12/15/17 PATIENT'S AGE: 42 Patient: MARY EVERETT Facility: [place], [place] Site . Site : 1975 Study: XRay Abdomen w chest [id number]/[id number] 11:47:38 PM Ordering Physician: Arpit Camarena Final Report: INDICATION: Abdominal pain TECHNIQUE: Chest and Abdominal radiograph 6 views COMPARISON: 12/08/2017 FINDINGS: Moderate degradation of image quality noted due to body habitus. CHEST: Mediastinum: The mediastinum is normal in appearance. The heart silhouette is normal in size and morphology. Lungs: Both lungs are unremarkable in appearance. No sign of pleural effusion seen. No pneumothorax is identified. ABDOMEN: Bowel: The bowel gas pattern is normal without evidence of bowel obstruction. Soft tissue: No evidence of pneumoperitoneum present. No suspicious calcifications noted. Previous cholecystectomy noted. Clips are also noted in the left lower quadrant. Bones: Unremarkable for age. IMPRESSION: 1. Unremarkable appearance of the chest and abdomen. Dictated by: Mykel De Leon MD @ 12/14/2017 23:53:00 (Electronic Signature) Report Signed by Proxy. [facility]
--- NOTE | 2017-12-15 18:11 | PCM.SN ---
- Free Text/Narrative Note: H and P and D/c in one single note , dictated #[id number]
--- NOTE | 2017-12-15 19:22 | HP ---
DATE OF : 1975 PRIMARY CARE PHYSICIAN: None PCP HISTORY OF PRESENT ILLNESS: The patient is a 42-year-old man with past medical history of hypertension, hyperlipidemia, poorly controlled diabetes mellitus, history of pancreatitis, and obesity, who underwent a cholecystectomy here on November 21. He presented to hospital today because of abdominal pain localized in the upper abdomen, left upper quadrant, epigastric, and right upper quadrant and it is radiating into the back and the upper chest. The patient's pain started today and was associated with nausea and vomiting. The patient was seen in the ER 3 days ago for chest pain and chest pain was ruled out. Since he had the surgery, patient had intermittent nausea and vomiting. The patient was given a followup appointment with Dr. Fernandes. REVIEW OF SYSTEMS: 12-point review of system is negative except as in history of present illness. PAST MEDICAL HISTORY: The patient has hyperlipidemia, hypertension, history of KS. He reports he had been told he had an KS, had stress test one year ago in [place]. He has asthma, has a history of pulmonary embolism postoperatively in February 2016, was on Coumadin for 3 months. Has sleep apnea, not on CPAP. Has a history of cholelithiasis status post cholecystectomy on November 21. He has history of diverticulitis and colectomy, history of pancreatitis, history of renal calculus, history of arthritis, history of concussion and migraines. History of anxiety, bipolar and depression. He has diabetes type 2. Obesity with BMI of 35.5. PAST SURGICAL HISTORY: Cholecystectomy, he had colectomy, also the patient has a history of arthroscopic puncture and knee replacement, shoulder surgery, and tonsillectomy. FAMILY HISTORY: Reports coronary artery disease, heart failure, hypertension, and myocardial infarction in his father's family at age of 40 with KS. Also has history of diabetes type 2, history of breast, colon, and leukemia in the family. SOCIAL HISTORY: Never smoked and no alcohol. No drug use. ALLERGIES: The patient is allergic to iodinated contrast and IV dye and penicillin. LABORATORY DATA: At admission his WBC 5.97, RBC 4.86, hemoglobin 15.4, hematocrit 43.1, and platelet count 173. Sodium 136, potassium 3.4, chloride 99, carbon dioxide 26.8, BUN 5, creatinine 1, estimated creatinine clearance 103.47, glucose 307, calcium 8.9, total bilirubin 3.1, AST 195, ALT 238, and alkaline phosphatase 184. Troponin less than 0.05. Total protein 7.4, albumin 3.3, globulin 4.1, amylase 225, lipase 5561. Urinalysis negative for nitrites, negative for leukocyte esterase and H. pylori antibody negative. Wbc in the urine between 0 and 1. VITAL SIGNS: At admission, his temperature 97 Fahrenheit, pulse 93, blood pressure 127/85, respiratory rate 20, and pulse oximetry 97%. PHYSICAL EXAMINATION: GENERAL: The patient is in moderate distress due to pain. HEENT: Head is atraumatic, normocephalic. Pupils equally reactive to light. There are yellow conjunctivae of the eye. NECK: Supple. No thyromegaly. No lymphadenopathy. HEART: S1, S2. Regular rhythm and rate. No murmur. LUNGS: Clear to auscultation bilaterally. ABDOMEN: Distended and diffusely tender to palpation. EXTREMITIES: No edema. NEUROLOGIC: The patient is alert, oriented x3. There are no gross focal neurological deficits. CT of the abdomen done in the emergency room was unremarkable appearance of the chest and abdomen. ASSESSMENT: 1. Pancreatitis. 2. Elevated LFTs. 3. Diabetes mellitus, uncontrolled. 4. Nausea and vomiting, the patient had occasionally since he had cholecystectomy. 5. Dyslipidemia. 6. Hypertension. PLAN: We will admit the patient to medical-surgical floor. The patient was seen by surgeon, Dr. Bass and he recommended medical management. We will start the patient on Ringer lactate at 200 mL/hour and we will give patient prior to this another 2 L of Ringer's lactate bolus. We will monitor liver function tests and lipase in the morning. We will put the patient on antinausea medications such as Zofran 4 mg IV q.4 hours p.r.n. for nausea and I will supplement potassium with potassium chloride 40 mEq p.o. 1 time. For pain management, we will give the patient Dilaudid 1 mg IV push q.3 hours and if pain not controlled, nurse was told to give the patient Dilaudid 2 mg IV push q.4 hours. For DVT prophylaxis, we will put the patient on Lovenox 40 mg given subcu q.24 hours. We will hold all other p.o. medication and we will treat his symptoms p.r.n. with IV medications, the patient was made n.p.o. For elevated LFTs, we will monitor LFTs in the morning. We will also plan to do tomorrow further testing for elevated liver function such as ultrasound of the right upper quadrant. Discharge summary. I was called by the nurse ornamental ironworking supervisor. The patient wants to be transferred to [place]. The patient just admitted about 1 hour ago. He discussed with his mom and he wants to be transferred to [place] to a higher level of care. I have arranged patient transfer to [place], to emergency room. Accepting physician was Dr. Manzanares. The patient was transferred as per his request. FORD / NACHO /[id number] JEROMY
== END 2017-12-15 03:50 | DRG 440 ==
LOC: MW.ED 22:17 → MW.ICU 12-15 00:41
PROVIDERS: ADMIT Internal Medicine; ATTEND Internal Medicine
DX: K85.90 Acute pancreatitis without necrosis or infection, unspecified (principal); E78.00 Pure hypercholesterolemia, unspecified; E78.5 Hyperlipidemia, unspecified; K21.9 Gastro-esophageal reflux disease without esophagitis; I10 Essential (primary) hypertension; E11.65 Type 2 diabetes mellitus with hyperglycemia; I25.2 Old myocardial infarction; F41.8 Other specified anxiety disorders; F31.9 Bipolar disorder, unspecified; Z79.4 Long term (current) use of insulin; Z88.0 Allergy status to penicillin; Z91.041 Radiographic dye allergy status; Z79.899 Other long term (current) drug therapy
CPT/HCPCS: 36415; 74022; 80053; 81001; 82150; 83690; 84484; 85025; 86677; C9113; J2405; J7040; 87040; 93005; A9270-GY; J1170; J1650; J7120